=== PATIENT | female | born 1950 | race Caucasian/White ===

== ENCOUNTER 2017-03-11 13:18 | Outpatient (CLI) ==
[2016-02-16 02:32] VITALS: BMI 34.0
--- NOTE | 2017-03-11 14:14 | DI ---
EXAM: Two views of the chest. History: Cough and wheezing Comparison: Chest radiograph 04/01/2016 Findings: Upper limits of normal heart size. Moderate hiatal hernia. No definite acute infiltrate s. No appreciable pleural fluid and no pneumothorax. No acute osseous abnormalities. Atherosclero tic vascular calcifications. Impression: No definite acute infiltrates. Moderate hiatal hernia.
== END 2017-03-11 13:19 | disposition home or self-care (01) ==
LOC: RAD 13:18
PROVIDERS: ATTEND Internal Medicine
DX: R05 Cough (principal); R06.2 Wheezing

== ENCOUNTER 2017-05-27 14:29 | Outpatient (CLI) ==
[2016-02-16 02:32] VITALS: BMI 34.0
--- NOTE | 2017-05-30 08:25 | MAMMO ---
EXAM: Bilateral digital screening mammogram History: Screening Comparison: Bilateral mammogram 07/15/2014 Findings: MLO and CC views of bilateral breasts demonstrate predominately fatty replaced breast par enchyma. Stable benign bilateral breast calcifications. There are no dominant masses, no suspiciou s microcalcifications and no architectural distortions Impression: Benign stable mammogram. Recommend followup routine screening mammography in 1 year. BIRADS 2
== END 2017-05-27 14:30 | disposition home or self-care (01) ==
LOC: RAD 14:29
PROVIDERS: ATTEND Internal Medicine
DX: Z12.31 Encounter for screening mammogram for malignant neoplasm of breast (principal)

== ENCOUNTER 2017-07-22 08:55 | Outpatient (CLI) ==
[2016-02-16 02:32] VITALS: BMI 34.0
[2017-07-22 09:09] VITALS: BP 136/80; TEMP 97
[2017-07-22] MEDS ORDERED: RECLAST 5 MG/100 ML SOLUTION 5 MG in PREMIX INFUSION 100 ML VIAL 1 VIAL IV ONE (09:09)
[2017-07-22 09:55] LABS: CALCIUM 9.8 mg/dL (8.2-10.2)
[2017-07-22 10:31] LABS: CREATININE 0.84 mg/dL (0.60-1.30)
== END 2017-07-22 08:56 | disposition home or self-care (01) ==
LOC: OPMED 08:55
PROVIDERS: ATTEND Internal Medicine
DX: M85.80 Other specified disorders of bone density and structure, unspecified site (principal)
CPT/HCPCS: 36415; 82310; 82550; 82565; 96365

== ENCOUNTER 2017-08-29 17:31 | Inpatient (IN) | payer OTHER ==
[2017-08-29] MEDS ORDERED: TYLENOL PO PRN (17:50)
[2017-08-29] MEDS ORDERED: MORPHINE 4 MG/ML VIAL IVP PRN (17:50)
[2017-08-29] MEDS ORDERED: ATROPINE SULFATE PFS IVP PRN (17:50)
[2017-08-29] MEDS ORDERED: NITROSTAT SL PRN ×2 (17:50→20:10)
[2017-08-29] MEDS ORDERED: VISTARIL INJ IM PRN (17:50)
[2017-08-29] MEDS ORDERED: XOPENEX 0.31 MG NEB SCH (18:00)
[2017-08-29] MEDS ORDERED: SOLU-CORTEF 250 MG IVP STA (18:06)
[2017-08-29 18:32] VITALS: BMI 29.4
[2017-08-29] MEDS ORDERED: ROCEPHIN ONE (18:41)
[2017-08-29] MEDS: ZITHROMAX PO SCH (18:46)
[2017-08-29] MEDS ORDERED: SODIUM CHLORIDE 50 ML IV ONE (18:47)
--- NOTE | 2017-08-29 19:24 | DI ---
EXAM: Chest PA and lateral HISTORY: Congestion, shortness of breath, cough. COMPARRISON: 03/11/2017 FINDINGS: The heart is borderline enlarged. Calcified plaques overlie the aorta. Pulmonary vascular ity is within normal limits. The lungs appear hyperexpanded. No focal airspace opacity or pleural ef fusion is seen. Advanced osteoarthritis of the right glenohumeral joint is present. There is mild multilevel degener ative changes of the thoracic spine. Moderate to large hiatal hernia is present. IMPRESSION: No acute cardiopulmonary findings. Borderline heart size. Lung hyperexpansion which can be seen with chronic obstructive pulmonary disease. Moderate to large hiatal hernia.
[2017-08-29 19:49] LABS: CREATINE KINASE 101 U/L; MYOGLOBIN 83 ng/ml
[2017-08-29 19:51] LABS: ABG BASE EXCESS -2 (-2.0-2.0); ABG HCO3 23.1 (22.0-26.0); ABG PCO2 40.3 mmHg (35-45); ABG PH 7.367 (7.35-7.45); ABG TCO2 24 (22.0-28.0)
[2017-08-29 19:56] LABS: ANION GAP 13.3; POTASSIUM 3.3 mmol/L (3.5-5.10)
[2017-08-29 19:57] LABS: ALBUMIN 3.8 g/dL (3.4-5.0); ALBUMIN/GLOBULIN RATIO 0.93; BILIRUBIN,TOTAL 0.34 mg/dL (0.00-1.20); BUN/CREATININE RATIO 12.4; CREATININE 1.37 mg/dL (0.60-1.30); TOTAL PROTEIN 7.9 g/dL (5.8-8.1)
[2017-08-29 20:00] LABS: BASOPHILS # (AUTO) 0.1 K/uL (0-0.2); BASOPHILS % (AUTO) 0.7 % (0.0-3.0); EOSINOPHILS # (AUTO) 0.3 K/ul (0.0-0.7); EOSINOPHILS % (AUTO) 3.8 % (0.0-7.0); HEMATOCRIT 41.2 % (37.0-47.0); HEMOGLOBIN 14.1 g/dl (12.0-16.0); IMMATURE GRANULOCYTE % (AUTO) 0.4 % (0.0-5.0); LYMPHOCYTES # (AUTO) 2.2 K/uL (0.60-3.4); LYMPHOCYTES % (AUTO) 29.5 (10.0-50.0); MEAN CORPUSCULAR HEMOGLOBIN 30.8 pg (27.0-31.0); MEAN CORPUSCULAR HGB CONC 34.2 (31.8-35.4); MONOCYTES # (AUTO) 0.6 K/uL (0.4-2.0); MONOCYTES % (AUTO) 8.6 (0-10); NEUTROPHILS # (AUTO) 4.2 K/ul (2.0-6.9); PLATELET COUNT 201 10^3/uL (140-440); RED BLOOD COUNT 4.58 10^6/ul (4.20-5.40); WHITE BLOOD COUNT 7.42 K/ul (4.6-10.2)
[2017-08-29] MEDS ORDERED: NON-FORMULARY MEDICATION (Tizanidine Hcl [Zanaflex] 4 MG) PO PRN ×22 (20:10)
[2017-08-29] MEDS: PULMICORT 0.5 MG/2 ML NEB SCH ×2 (20:14→23:00)
[2017-08-29] MEDS ORDERED: CITALOPRAM HYDROBROMIDE 20 MG PO SCH (21:00)
[2017-08-29] MEDS ORDERED: HYDROCODONE PO SCH (21:00)
[2017-08-29] MEDS ORDERED: NON-FORMULARY MEDICATION (Alprazolam [Xanax] 0.5 MG) PO SCH ×22 (21:00)
[2017-08-29] MEDS ORDERED: ACETAMINOPHEN PO SCH (21:00)
[2017-08-29] MEDS: SOLU-CORTEF 250 MG IVP SCH (21:13)
[2017-08-29] MEDS ORDERED: XANAX ONE (21:39)
[2017-08-29] MEDS ORDERED: NORCO 7.5-325 ONE (21:40)
[2017-08-29] MEDS ORDERED: ASPIRIN EC ONE (21:40)
[2017-08-29] MEDS ORDERED: CELEXA ONE (21:40)
[2017-08-29] MEDS: PLAVIX PO SCH (21:48)
[2017-08-29] MEDS: NORVASC PO SCH (21:48)
[2017-08-29] MEDS: CRESTOR PO SCH (21:49)
[2017-08-29] MEDS: ASPIRIN CHEWABLE PO SCH (21:50)
[2017-08-29] MEDS: TUSSIONEX PO SCH (21:51)
[2017-08-29] MEDS: TOPROL XL PO SCH (21:51)
[2017-08-29] MEDS ORDERED: NORCO 10-325 PO SCH (22:25)
[2017-08-29] MEDS: PERCOCET 10-325 ONE ×2 (22:51→22:52)
[2017-08-29] MEDS: PERCOCET 10-325 PO SCH (22:51)
[2017-08-29 22:53] LABS: BILIRUBIN,URINE Negative (NEGATIVE); KETONES,URINE Negative (NEGATIVE); LEUKOCYTE ESTERASE ,URINE Negative (NEGATIVE); NITRITE,URINE Negative (NEGATIVE); PH,URINE 5.5 (5-9); PROTEIN,URINE Negative (NEGATIVE); URINE, BLOOD 1+ (NEGATIVE)
[2017-08-29 23:01] LABS: ADD URINE MICROSCOPIC YES
[2017-08-29] MEDS: XOPENEX 0.63 MG NEB SCH (23:35)
[2017-08-29] MEDS ORDERED: XOPENEX 0.63 MG NEB ONE (23:35)
[2017-08-30 02:05] LABS: BASOPHILS % (AUTO) 0.5 % (0.0-3.0); EOSINOPHILS % (AUTO) 0.2 % (0.0-7.0); HEMATOCRIT 37.2 % (37.0-47.0); HEMOGLOBIN 12.6 g/dl (12.0-16.0); IMMATURE GRANULOCYTE % (AUTO) 0.5 % (0.0-5.0); LYMPHOCYTES # (AUTO) 0.8 K/uL (0.60-3.4); LYMPHOCYTES % (AUTO) 14.4 (10.0-50.0); MEAN CORPUSCULAR HEMOGLOBIN 30.4 pg (27.0-31.0); MEAN CORPUSCULAR HGB CONC 33.9 (31.8-35.4); MEAN CORPUSCULAR VOLUME 89.6 fl (81.0-99.0); MONOCYTES # (AUTO) 0.3 K/uL (0.4-2.0); MONOCYTES % (AUTO) 4.4 (0-10); NEUTROPHILS # (AUTO) 4.6 K/ul (2.0-6.9); PLATELET COUNT 168 10^3/uL (140-440); RED BLOOD COUNT 4.15 10^6/ul (4.20-5.40); WHITE BLOOD COUNT 5.71 K/ul (4.6-10.2)
[2017-08-30 02:27] LABS: ALBUMIN 3.3 g/dL (3.4-5.0); ALBUMIN/GLOBULIN RATIO 0.92; ANION GAP 12.7; BILIRUBIN,TOTAL 0.23 mg/dL (0.00-1.20); BUN/CREATININE RATIO 14.61; CALCIUM 9.7 mg/dL (8.2-10.2); CREATININE 1.3 mg/dL (0.60-1.30); POTASSIUM 3.7 mmol/L (3.5-5.10); TOTAL PROTEIN 6.9 g/dL (5.8-8.1)
[2017-08-30 02:35] LABS: CREATINE KINASE 80 U/L; MYOGLOBIN 55 ng/ml
[2017-08-30] MEDS: PULMICORT 0.5 MG/2 ML NEB SCH ×2 (05:25→16:55)
[2017-08-30] MEDS: SOLU-CORTEF 250 MG IVP SCH ×3 (05:39→20:02)
[2017-08-30] MEDS: PERCOCET 10-325 PO SCH ×3 (05:40→20:34)
[2017-08-30] MEDS: SYNTHROID PO SCH (05:43)
[2017-08-30] MEDS: XOPENEX 0.63 MG NEB SCH ×4 (05:59→23:04)
[2017-08-30] MEDS ORDERED: ZANAFLEX PO PRN (07:24)
[2017-08-30] MEDS ORDERED: ASPIRIN EC PO SCH (08:00)
[2017-08-30] MEDS: PROTONIX PO SCH (08:43)
[2017-08-30] MEDS: TUSSIONEX PO SCH ×2 (08:43→20:34)
[2017-08-30] MEDS: CYMBALTA PO SCH (08:43)
[2017-08-30] MEDS: REQUIP PO SCH (08:43)
[2017-08-30] MEDS: ZITHROMAX PO SCH (08:43)
[2017-08-30] MEDS: NON-FORMULARY MEDICATION (Fluticasone/Vilanterol [Breo Ellipta 200-25 Mcg Inh] 1 PUFF) PO SCH (08:44)
[2017-08-30] MEDS: ROCEPHIN 1 GM in SODIUM CHLORIDE 50 ML IV SCH (08:44)
[2017-08-30] MEDS ORDERED: NON-FORMULARY MEDICATION (Ropinirole Hcl [Requip] 0.5 MG) PO SCH (09:00)
[2017-08-30] MEDS ORDERED: NORCO 10-325 PO SCH (09:00)
[2017-08-30] MEDS ORDERED: NON-FORMULARY MEDICATION (Duloxetine Hcl [Cymbalta] 60 MG) PO SCH ×22 (09:00)
--- NOTE | 2017-08-30 09:47 | PCM.PROG ---
Attending Provider: ATTENDING PROVIDER: Dr. SIA DOMINGUEZ This patient is seen with Deisy Walters, Nurse Practitioner. DATE OF SERVICE: 08/30/17 SUBJECTIVE: This 67 year old WHITE/ F was hospitalized 08/29/17. The patient is alert, lying in bed. Wheezing is improved. Feeling better. REVIEW OF SYSTEMS: CONSTITUTIONAL: No night sweats. No fatigue, malaise, lethargy. No fever or chills. HEENT: Eyes: No visual changes. No eye pain. No eye discharge. ENT: No runny nose. No epistaxis. No sinus pain. No odynophagia. No congestion. RESPIRATORY: Cough and wheezing. No congestion. No hemoptysis. No shortness of breath. CARDIOVASCULAR: No angina symptoms. No CHF symptoms. No atypical chest pain for CAD. No palpitations. No orthopnea.. GASTROINTESTINAL: No abdominal pain. No nausea or vomiting. No diarrhea or constipation. No hematemesis. No hematochezia. GENITOURINARY: No urgency. No frequency. No dysuria. No hematuria. No obstructive symptoms. No discharge. No pain. No significant abnormal bleeding. MUSCULOSKELETAL: No musculoskeletal pain; no joint swelling. NEUROLOGICAL: Awake, alert, oriented to time, place and person. No headache. No neck pain. No syncope. No seizures. No dizziness. PSYCHIATRIC: Not anxious. No depression. No suicidal thoughts. No homicidal thoughts. SKIN: No rash. No lesions. No wounds. ENDOCRINE: No unexplained weight loss. No weight gain. HEMATOLOGIC/LYMPHATIC: No anemia. No purpura. No petechiae. No prolonged or excessive bleeding. No palpable lymph nodes. PHYSICAL EXAMINATION: GENERAL: The patient is awake, alert and oriented, lying in bed in no distress. VITAL SIGNS: Temperature 96.8 F, Pulse 55, Respiratory Rate 15, BP 100/53, Pulse Ox 97% HEENT: Head normocephalic, atraumatic. Eyes: Extraocular muscles are intact. Pupils are equal, round and reactive to light and accommodation. Ears: No lesions. Nose appeared normal. Throat: No exudate or erythema. NECK: Supple. No JVD, no carotid bruit. No lymphadenopathy or thyromegaly. LUNGS: Diminished breath sounds. Improved bilateral inspiratory and expiratory wheeze. Percussion note normal. Chest symmetrical. HEART: S1, S2, no S3. No murmurs. No cyanosis or clubbing. No ascites. Pulses: Dorsalis pedis and posterior tibial pulses +1 to +2 both sides. ABDOMEN: Soft. Non-tender. Bowel sounds active. No CVA tenderness. No mass felt. EXTREMITIES: No edema. Full range of motion of all extremities, equal. NEUROLOGIC: No focal deficit. Cranial nerves II through XII are grossly intact. No headache, no double vision or headache. SKIN: Not dry. Intact. Turgor-normal. LYMPHATIC: No palpable lymph nodes/no lymphedema. MUSCULOSKELETAL: Normal joints with no swelling. Muscle tone is normal. LAB REVIEW: 08/30/17 01:50 08/30/17 01:50 08/30/17 01:50: Sodium 138, Potassium 3.7, Chloride 107, Carbon Dioxide 22 L, Anion Gap 12.7, BUN 19 H, Creatinine 1.30, Estimated GFR (MDRD) 41.00, BUN/ Creatinine Ratio 14.61, Glucose 141 H, Calcium 9.7, Total Bilirubin 0.23, AST 12 L, ALT 10 L, Alkaline Phosphatase 68, Total Protein 6.9, Albumin 3.3 L, Globulin 3.6, Albumin/Globulin Ratio 0.92 08/30/17 01:50: WBC 5.71, RBC 4.15 L, Hgb 12.6, Hct 37.2, MCV 89.6, MCH 30.4, MCHC 33.9, RDW Coeff of Melody 13.3, Plt Count 168, Immature Gran % (Auto) 0.5, Neut % (Auto) 80.0, Lymph % (Auto) 14.4, Ward % (Auto) 4.4, Eos % (Auto) 0.2, Baso % (Auto) 0.5, Immature Gran # (Auto) 0.0, Neut # 4.6, Lymph # 0.8, Ward # 0.3 L, Eos # 0.0, Baso # 0.0 08/30/17 01:50: Total Creatine Kinase 80, Myoglobin 55, Troponin I < 0.0100 08/29/17 22:40: Urine Color Yellow, Urine Clarity Clear, Urine pH 5.5, Ur Specific [place] <=1.005, Urine Protein Negative, Urine Glucose (UA) Negative, Urine Ketones Negative, Urine Blood 1+, Urine Nitrite Negative, Urine Bilirubin Negative, Urine Urobilinogen 0.2, Ur Leukocyte Esterase Negative, Urine Microscopic RBC 0-2, Urine Microscopic WBC 0-2, Ur Squamous Epith Cells 0-2 08/29/17 19:10: Total Creatine Kinase 101, Myoglobin 83, Troponin I < 0.0100 08/29/17 19:10: Sodium 138, Potassium 3.3 L, Chloride 104, Carbon Dioxide 24, Anion Gap 13.3, BUN 17, Creatinine 1.37 H, Estimated GFR (MDRD) 39.00, BUN/ Creatinine Ratio 12.40, Glucose 94, Calcium 10.0, Total Bilirubin 0.34, AST 15, ALT 10 L, Alkaline Phosphatase 75, Total Protein 7.9, Albumin 3.8, Globulin 4.1 , Albumin/Globulin Ratio 0.93 08/29/17 19:10: WBC 7.42, RBC 4.58, Hgb 14.1, Hct 41.2, MCV 90.0, MCH 30.8, MCHC 34.2, RDW Coeff of Melody 13.5, Plt Count 201, Immature Gran % (Auto) 0.4, Neut % (Auto) 57.0, Lymph % (Auto) 29.5, Ward % (Auto) 8.6, Eos % (Auto) 3.8, Baso % (Auto) 0.7, Immature Gran # (Auto) 0.0, Neut # 4.2, Lymph # 2.2, Ward # 0.6, Eos # 0.3, Baso # 0.1 08/29/17 19:10: B-Natriuretic Peptide 106 H 08/29/17 17:50: Puncture Site Lb, O2 Saturation 89.0 L, ABG pH 7.367, ABG pCO2 40.3, ABG pO2 59.0 L*, ABG HCO3 23.1, ABG Total CO2 24, ABG Base Excess -2, Hugo Test +, FiO2 % 21.0 ASSESSMENT: 1. Acute bronchitis/pleuritic pain 2. COPD 3. Smoker PLAN: 1. Continue nebs and IV steroids and antibiotics 2. Echo - will check on last one Plan and coordination of the patient's care discussed in the presence of Kiln Feeder and nurse. CONDITION: Stable SCRIBED BY: JANAK MORENO [employer] scribed while in presence of service performed by Dr. Dominguez/Deisy Walters, [employer] SAL[employer] on 08/30/17 ([id number])
[2017-08-30] MEDS: TOPROL XL PO SCH (20:34)
[2017-08-30] MEDS: NORVASC PO SCH (20:34)
[2017-08-30] MEDS: XANAX PO SCH (20:34)
[2017-08-30] MEDS: ASPIRIN CHEWABLE PO SCH (20:34)
[2017-08-30] MEDS: PLAVIX PO SCH (20:35)
[2017-08-30] MEDS: CELEXA PO SCH (20:35)
[2017-08-30] MEDS: CRESTOR PO SCH (20:36)
[2017-08-31] MEDS: SOLU-CORTEF 250 MG IVP SCH ×3 (04:32→20:53)
[2017-08-31] MEDS: PERCOCET 10-325 PO SCH ×3 (04:32→20:55)
[2017-08-31 05:24] LABS: BASOPHILS % (AUTO) 0.5 % (0.0-3.0); EOSINOPHILS % (AUTO) 0.1 % (0.0-7.0); HEMATOCRIT 36.6 % (37.0-47.0); HEMOGLOBIN 12.3 g/dl (12.0-16.0); IMMATURE GRANULOCYTE % (AUTO) 0.7 % (0.0-5.0); LYMPHOCYTES # (AUTO) 1.3 K/uL (0.60-3.4); LYMPHOCYTES % (AUTO) 15.1 (10.0-50.0); MEAN CORPUSCULAR HEMOGLOBIN 30.4 pg (27.0-31.0); MEAN CORPUSCULAR HGB CONC 33.6 (31.8-35.4); MEAN CORPUSCULAR VOLUME 90.4 fl (81.0-99.0); MONOCYTES # (AUTO) 0.5 K/uL (0.4-2.0); MONOCYTES % (AUTO) 5.5 (0-10); NEUTROPHILS # (AUTO) 6.8 K/ul (2.0-6.9); NEUTROPHILS % (AUTO) 78.1; PLATELET COUNT 194 10^3/uL (140-440); RED BLOOD COUNT 4.05 10^6/ul (4.20-5.40); WHITE BLOOD COUNT 8.68 K/ul (4.6-10.2)
[2017-08-31] MEDS: XOPENEX 0.63 MG NEB SCH ×4 (05:29→23:03)
[2017-08-31] MEDS: PULMICORT 0.5 MG/2 ML NEB SCH ×2 (05:29→18:18)
[2017-08-31 06:02] LABS: ALBUMIN/GLOBULIN RATIO 0.88; ANION GAP 13.1; BILIRUBIN,TOTAL 0.17 mg/dL (0.00-1.20); BUN/CREATININE RATIO 19.62; CALCIUM 9.6 mg/dL (8.2-10.2); CREATININE 1.07 mg/dL (0.60-1.30); POTASSIUM 4.1 mmol/L (3.5-5.10); TOTAL PROTEIN 6.4 g/dL (5.8-8.1)
[2017-08-31] MEDS: PROTONIX PO SCH (06:04)
[2017-08-31] MEDS: SYNTHROID PO SCH (06:05)
[2017-08-31] MEDS: ROCEPHIN 1 GM in SODIUM CHLORIDE 50 ML IV SCH (09:20)
[2017-08-31] MEDS: TUSSIONEX PO SCH ×2 (09:20→20:53)
[2017-08-31] MEDS: REQUIP PO SCH (09:21)
[2017-08-31] MEDS: ZITHROMAX PO SCH (09:21)
[2017-08-31] MEDS: NON-FORMULARY MEDICATION (Fluticasone/Vilanterol [Breo Ellipta 200-25 Mcg Inh] 1 PUFF) PO SCH (09:21)
[2017-08-31] MEDS: CYMBALTA PO SCH (09:22)
--- NOTE | 2017-08-31 10:59 | PN ---
DATE OF SERVICE: 08/30/17 SUBJECTIVE: 67 year old white female hospitalized with acute bronchitis and bilateral pneumonitis with wheezing and pleuritic pain. The patient says that she is feeling a lot better and her appetite has improved. Now she is talking without stopping. PHYSICAL EXAMINATION: HEENT: Head normocephalic, atraumatic. Eyes: Extraocular muscles are intact. Pupils are equal, round and reactive to light and accommodation. Ears: No lesions. Nose appeared normal. Throat: No exudate or erythema. NECK: Supple. No JVD, no carotid bruit. No lymphadenopathy or thyromegaly. LUNGS: Decreased breath sounds but clear to auscultation. Good air entry and no wheezing. Percussion note normal. Chest symmetrical. HEART: S1, S2, no S3. No murmurs. No cyanosis or clubbing. No ascites. Pulses: Dorsalis pedis and posterior tibial pulses +1 to +2 both sides. ABDOMEN: Soft. Nontender. Bowel sounds active. No CVA tenderness. No mass felt. EXTREMITIES: No edema. Full range of motion of all extremities, equal. NEUROLOGIC: No focal deficit. Cranial nerves II through XII are grossly intact. No headache, no double vision or headache. SKIN: Not dry. Intact. Turgor -Better. LYMPHATIC: No palpable lymph nodes/no lymphedema. MUSCULOSKELETAL: Normal joints with no swelling. Muscle tone is normal. LABS: All acceptable and normal. ASSESSMENT: 1. Pneumonitis/asthmatic bronchitis, improving PLAN: 1. Counseling for smoking done 2. Advised to loose weight 3. Will do pulmonary rehab 4. Do PFT before discharge 5. Continue antibiotic steroids and NEBS CONDITION: Stable The patient was seen and examined with the Nurse Practitioner. TIME SPENT: More than 30 minutes. Plan and coordination of the patient's care discussed in the presence of nurse. LILA
--- NOTE | 2017-08-31 11:08 | HP ---
DATE OF SERVICE: 08/29/17 HISTORY OF PRESENT ILLNESS: This is a 67-year-old female with complaints that she is still coughing, now with headaches. She finished Keflex and Prednisone. She has yellow/green phlegm. Symptoms off and on times 4 weeks. No fever. Pleuritic right-sided chest pain, sharp/tightness/soreness. PAST MEDICAL HISTORY: Cataracts CAD with stent COPD - smoking Hypertension Dyslipidemia Obesity Vitamin B12 deficiency Hypothyroidism Osteopenia Osteoarthritis of the hip MENSTRUAL HISTORY: Hysterectomy PAST SURGICAL HISTORY: Heart catheterization Stent 2006 Hysterectomy Bladder REVIEW OF SYSTEMS: CONSTITUTIONAL: No fever. Fatigue. HEENT: Sinus drainage. No sore throat. RESPIRATORY: Cough with yellow/green phlegm. No hemoptysis. CARDIOVASCULAR: Atypical chest pain for coronary artery disease. No angina, CHF symptoms, or palpitations. Shortness of breath. GASTROINTESTINAL: No melena or abdominal pain. No GERD. GENITOURINARY: No hematuria, no polyuria. LOCOMOTIVE MECHANIC: Headache. No blackout, no dizziness, no double vision. MUSCULOSKELETAL: Osteoarthritis pain. ENDOCRINE: Weight loss of 3 lbs. SKIN: Not dry, no rash. PSYCHIATRIC: Not anxious, no depression, no suicidal thoughts, no homicidal thoughts. SOCIAL HISTORY: , three children, disabled. Smoker - 1/2 pack per day for over 30 years. No alcohol use. No history of illicit drug use. FAMILY HISTORY: Father is living; mother living; two brothers; one sister. MEDICATIONS: (HOME) Breo Ellipta 200-25 mcg dose blister with device twice daily Celexa 20 mg one p.o. once daily Levothyroxine 25 mcg one p.o. daily Pantoprazole 40 mg one p.o. daily Reclast 5 mg/100 mL solution Hydrocodone-Acetaminophen 10-325 mg tablet one p.o. three times per day p.r.n. Ipratropium Albuterol 0.5 mg 3 mg (2.5 mg base)/3 mL solution for nebulization Requip 0.5 mg one tablet p.o. one time per day 1 to 3 hours before bedtime Plavix 75 mg one p.o. once daily Norvasc 5 mg one p.o. daily Metoprolol Succinate 25 mg one p.o. daily Crestor 10 mg one p.o. daily at bedtime Xanax 0.5 mg one p.o. two times per day p.r.n. Symbicort 160-4.5 mcg/actuation HFA aerosol inhaler two puffs two times per day in morning and evening Aspirin 81 mg p.o. once daily ALLERGIES: NKDA PHYSICAL EXAMINATION: V/S: Pulse 70, BP 110/70, temperature 97.9, 02 sat 93%. Weight 186.6, Height 5'6 ". GENERAL APPEARANCE: Oriented times three. HEENT: Normal. NECK: No JVP, no bruits. RESPIRATORY: Lungs have bilateral wheeze. CARDIOVASCULAR: S1, S2, no S3, no murmurs. No cyanosis, clubbing. No ascites. GI/ABDOMEN: No tenderness. Bowel sounds are active. EXTREMITIES: No edema, pulses +1, equal. LOCOMOTIVE MECHANIC: Deep tendon reflexes, sensory, motor and gait all normal. RECTAL/PELVIC: Colonoscopy - Dr. Wan 08/17/17. Pelvic: Hysterectomy. Mammogram 08/07 [facility]. ASSESSMENT: 1. ACUTE BRONCHITIS/PLEURITIC PAIN/LEFT-SIDED PNEUMONIA 2. HEADACHE WITH COUGH 3. STATUS POST BILATERAL CATARACTS 4. CAD WITH STENT 2005 5. COPD - SMOKING 6. HYPERTENSION 7. DYSLIPIDEMIA 8. OBESITY 9. B12 DEFICIENCY 10. HYPOTHYROIDISM 11. OSTEOPENIA/OSTEOARTHRITIS HIP PLAN: 1. Admit routine telemetry orders 2. BNP/ABG today 3. Nebs - Xopenex q.4 hr, Pulmicort b.i.d. 4. Blood cultures times two 5. Sputum culture and sensitivity 6. Daily CBC, CMP a.m. 7. Rocephin 1 gm IV 24 hourly 8. Zithromax 500 mg p.o. daily times 3 days 9. Solu-Cortef 125 mg IV now and q.8hr 10. Tussionex one teaspoon p.o. b.i.d. 11. Continue all home medications TIME SPENT: More than 70 minutes. MTDD
[2017-08-31] MEDS: CELEXA PO SCH (20:55)
[2017-08-31] MEDS: PLAVIX PO SCH (20:55)
[2017-08-31] MEDS: TOPROL XL PO SCH (20:55)
[2017-08-31] MEDS: NORVASC PO SCH (20:55)
[2017-08-31] MEDS: CRESTOR PO SCH (20:55)
[2017-08-31] MEDS: XANAX PO SCH (20:55)
[2017-08-31] MEDS: ASPIRIN CHEWABLE PO SCH (20:55)
[2017-09-01 04:57] LABS: BASOPHILS % (AUTO) 0.4 % (0.0-3.0); EOSINOPHILS % (AUTO) 0.1 % (0.0-7.0); HEMATOCRIT 36.2 % (37.0-47.0); IMMATURE GRANULOCYTE % (AUTO) 1.2 % (0.0-5.0); LYMPHOCYTES # (AUTO) 1.2 K/uL (0.60-3.4); LYMPHOCYTES % (AUTO) 15.7 (10.0-50.0); MEAN CORPUSCULAR HEMOGLOBIN 30.1 pg (27.0-31.0); MEAN CORPUSCULAR HGB CONC 33.1 (31.8-35.4); MEAN CORPUSCULAR VOLUME 90.7 fl (81.0-99.0); MONOCYTES # (AUTO) 0.5 K/uL (0.4-2.0); MONOCYTES % (AUTO) 6.4 (0-10); NEUTROPHILS # (AUTO) 5.9 K/ul (2.0-6.9); NEUTROPHILS % (AUTO) 76.2; PLATELET COUNT 194 10^3/uL (140-440); RED BLOOD COUNT 3.99 10^6/ul (4.20-5.40); WHITE BLOOD COUNT 7.69 K/ul (4.6-10.2)
[2017-09-01] MEDS: XOPENEX 0.63 MG NEB SCH ×2 (05:14→11:07)
[2017-09-01] MEDS: PULMICORT 0.5 MG/2 ML NEB SCH (05:14)
[2017-09-01 05:26] LABS: ALBUMIN/GLOBULIN RATIO 0.91; ANION GAP 10.9; BILIRUBIN,TOTAL 0.17 mg/dL (0.00-1.20); BUN/CREATININE RATIO 22.01; CALCIUM 9.4 mg/dL (8.2-10.2); CREATININE 1.09 mg/dL (0.60-1.30); POTASSIUM 3.9 mmol/L (3.5-5.10); TOTAL PROTEIN 6.3 g/dL (5.8-8.1)
[2017-09-01] MEDS: SOLU-CORTEF 250 MG IVP SCH (05:32)
[2017-09-01] MEDS: PERCOCET 10-325 PO SCH (05:32)
[2017-09-01] MEDS: PROTONIX PO SCH (05:32)
[2017-09-01] MEDS: SYNTHROID PO SCH (05:32)
[2017-09-01] MEDS: ROCEPHIN 1 GM in SODIUM CHLORIDE 50 ML IV SCH (08:14)
[2017-09-01] MEDS: TUSSIONEX PO SCH (08:14)
[2017-09-01] MEDS: NON-FORMULARY MEDICATION (Fluticasone/Vilanterol [Breo Ellipta 200-25 Mcg Inh] 1 PUFF) PO SCH (08:14)
[2017-09-01] MEDS: CYMBALTA PO SCH (08:14)
[2017-09-01] MEDS: REQUIP PO SCH (08:15)
--- NOTE | 2017-09-01 08:16 | MRI ---
EXAM: MRI brain without and with IV contrast. DATE: 31 August 2017. HISTORY: Headaches, dizziness. TECHNIQUE: Sagittal T1W pre and postcontrast, axial T2W, axial FLAIR, axial T1W pre and postcontrast , axial DWI, coronal T1W postcontrast, and coronal T2W GRE sequences of the brain were obtained using 1.2 Lora magnet. CONTRAST: Omniscan - 15 ml IV. COMPARISON: None. FINDINGS: A cavum septum vergae normal variation is observed. The lateral ventricles, Sylvian fissu res, and many frontal / parietal lobe sulci are enlarged due to involutional change. No midline shif t, mass effect or abnormal extra-axial fluid collection is apparent. No acute infarct, hemorrhage or enhancing neoplasm is identified. No abnormal contrast enhancement is identified in the brain, meni nges or dura. Minimal T2W/FLAIR hyperintensities in the white matter abutting each lateral ventricle . A few 2-4 mm, T2W/FLAIR bright, non-enhancing foci are scattered in the subcortical white matter b ilaterally. The corcoran - white matter differentiation is normal. Several 2 mm diameter, FLAIR hyperin tense foci are note within the central aspect of the daniele. No migration or diverticulation abnormali ty is identified. No mesial temporal sclerosis is detected. The 7th/8th cranial nerve complexes, ce rebellopontine angles, and visible cervical spinal cord are normal. There is no cerebellar tonsillar ectopia. The pituitary gland appears narrow in height posteriorly. No focal pituitary lesion is id entified. Corpus callosum is normal in size and configuration. Flow voids are present in the major intracranial arteries and in the dural venous sinuses. No aneurysm, AVM or dural venous sinus thromb osis is apparent. Right ophthalmic vein is 4.5 mm diameter. Left ophthalmic vein is 4.2 mm diameter . Appearance in the lens of each eye suggests prior cataract surgery. No other orbit abnormality is identified. No definitive cavernous sinus abnormality is revealed. Most mastoid air cells bilatera lly demonstrate T2W bright, T1W intermediate signal, with some areas revealing mild enhancement. The re is minor mucosal thickening in the right maxillary sinus, scattered ethmoid air cells, and frontal sinuses. No neck mass or lymphadenopathy is detected. No calvarial neoplasm or acute fracture is e vident. IMPRESSIONS: 1. No acute infarct, hemorrhage, mass or hydrocephalus. 2. Minor cerebral and pontine small vessel disease. 3. Mild cerebral atrophy. 4. Minor right maxillary, ethmoid, and frontal sinus disease. 5. Marked, diffuse bilateral mastoid effusions / mastoiditis. 6. Each ophthalmic vein is upper normal size. 7. Posterior pituitary gland appears small.
[2017-09-01] MEDS ORDERED: LIDOCAINE HCL 1% SDV SUBCUT STA (08:30)
[2017-09-01] MEDS ORDERED: ROCEPHIN IM STA (08:30)
[2017-09-01 10:04] VITALS: BP 150/74; TEMP 97.3
--- NOTE | 2017-09-01 12:27 | CM.DICTOOL ---
ADMISSION: 08/29/17 17:31 DISCHARGE: September 01, 2017 DATE OF SERVICE: 09/01/17 FINAL DIAGNOSIS Acute Bronchitis Pleuritic chest pain Headache Hypertension CAD with stent application Dyslipidemia Hypothyroid Osteopenia Osteoarthritis B12 deficiency Cataract extraction, 2017 Heart Cath Cardiac Stent Hiatal Hernia, moderate to large Hysterectomy Bladder sling Tobacco use Chronic pain, pain management RLS LAST VITALS Temp Pulse Resp BP Pulse Ox 97.3 F L 70 16 150/74 H 89 L 09/01/17 10:00 09/01/17 10:00 09/01/17 10:00 09/01/17 10:00 09/01/17 10:00 ACTIVE MEDICATIONS Alprazolam (Xanax) 0.5 mg PO BEDTIME [facility] Last Admin: 08/31/17 20:55 Dose: 0.5 mg Amlodipine Besylate (Norvasc) 5 mg PO BEDTIME [facility] Last Admin: 08/31/17 20:55 Dose: 5 mg Aspirin (Aspirin Chewable) 81 mg PO BEDTIME [facility] Last Admin: 08/31/17 20:55 Dose: 81 mg Citalopram Hydrobromide (Celexa) 20 mg PO BEDTIME [facility] Last Admin: 08/31/17 20:55 Dose: 20 mg Clopidogrel Bisulfate (Plavix) 75 mg PO BEDTIME [facility] Last Admin: 08/31/17 20:55 Dose: 75 mg Duloxetine HCl (Cymbalta) 60 mg PO DAILY [facility] Last Admin: 09/01/17 08:14 Dose: 60 mg Levothyroxine Sodium (Synthroid) 25 mcg PO QDAC [facility] Last Admin: 09/01/17 05:32 Dose: 25 mcg Metoprolol Succinate (Toprol Xl) 25 mg PO BEDTIME [facility] Last Admin: 08/31/17 20:55 Dose: 25 mg Nitroglycerin (Nitrostat) 0.4 mg SL Q5MIN X 3 DOSES PRN PRN Reason: Chest Pain Non-Formulary Medication (Fluticasone/Vilanterol [Breo Ellipta 200-25 Mcg Inh]) 1 puff PO DAILY [facility] Last Admin: 09/01/17 08:14 Dose: 1 puff Oxycodone/Acetaminophen (Percocet 10-325) 1 tab PO Q8HR [facility] Last Admin: 09/01/17 05:32 Dose: 1 tab Pantoprazole Sodium (Protonix) 40 mg PO QDAC [facility] Last Admin: 09/01/17 05:32 Dose: 40 mg Ropinirole HCl (Requip) 0.5 mg PO DAILY [facility] Last Admin: 09/01/17 08:15 Dose: 0.5 mg Rosuvastatin Calcium (Crestor) 10 mg PO BEDTIME [facility] Last Admin: 08/31/17 20:55 Dose: 10 mg Tizanidine HCl (Zanaflex) 4 mg PO TID PRN PRN Reason: MUSCLE SPASMS ALLERGIES No Known Allergies Allergy (Verified 02/15/16 21:55) NEW PRESCRIPTIONS: Keflex 500 mg TID for 7 days Prednisone 20 mg BID for 2 days, then 10 mg BID for 5 days ProAir HFA 1-2 puffs every 4-6 hours prn SMOKING: ADVISED TO STOP SMOKING DISEASE SPECIFIC EDUCATION: SMOKING STEROIDS WITH RISK OF BONE DEMINERALIZATION, GI IRRITATION APPOINTMENT LAB REVIEW: 09/01/17 04:56 09/01/17 04:56 09/01/17 04:56: Sodium 142, Potassium 3.9, Chloride 108 H, Carbon Dioxide 27, Anion Gap 10.9, BUN 24 H, Creatinine 1.09, Estimated GFR (MDRD) 50.00, BUN/ Creatinine Ratio 22.01, Glucose 123 H, Calcium 9.4, Total Bilirubin 0.17, AST 10 L, ALT 11 L, Alkaline Phosphatase 54, Total Protein 6.3, Albumin 3.0 L, Globulin 3.3, Albumin/Globulin Ratio 0.91 09/01/17 04:56: WBC 7.69, RBC 3.99 L, Hgb 12.0, Hct 36.2 L, MCV 90.7, MCH 30.1, MCHC 33.1, RDW Coeff of Melody 13.3, Plt Count 194, Immature Gran % (Auto) 1.2, Neut % (Auto) 76.2, Lymph % (Auto) 15.7, [place] % (Auto) 6.4, Eos % (Auto) 0.1, Baso % (Auto) 0.4, Immature Gran # (Auto) 0.1, Neut # 5.9, Lymph # 1.2, [place] # 0.5, Eos # 0.0, Baso # 0.0 PLAN: DISCHARGE HOME DIET: HEART HEALTHY ACTIVITY: GRADUALLY RESUME TOLERATED USE OXYGEN AT NIGHT, C-PAP AT NIGHT CONTINUE MEDICATIONS LISTED ON NURSING DISCHARGE INFORMATION SHEET AN APPOINTMENT IS SCHEDULED WITH DR. DOMINGUEZ/OSITO BRADEN APRN ON August AT 3:15. MRS HUANG IS ALERT AND ORIENTED X 3. SHE IS INDEPENDENT WITH ADL'S AND IS AMBULATORY WITHOUT USE OF ASSISTIVE DEVICE. SHE USES A C-PAP AT NIGHT AND OXYGEN AT 2 LITERS AT NIGHT PRN. SHE HAS THIS EQUIPMENT AT HOME. SHE ALSO REPORTS SHE HAS A NEBULIZER, BUT NO LONGER USES. MEAL INTAKES ARE GOOD AT 25- 100%. NO ABDOMINAL PAIN, NAUSEA OR DIARRHEA REPORTED. SKIN IS INTACT AND FREE OF DECUBITUS, RASHES OR IRRITATION. SIA DOMINGUEZ MD OSITO BRADEN APRN
--- NOTE | 2017-09-01 12:55 | US ---
EXAM: ULTRASOUND CAROTID DUPLEX, BILATERAL HISTORY: Headache and dizziness FINDINGS: Alvarado-scale ultrasound, color Doppler and spectral analysis was performed. Velocities are in meters per second. By alvarado scale and color Doppler imaging, there was a significant amount heterogeneous atherosclerotic plaque distributed bilaterally within the carotid bulbs and proximal internal carotid arteries. Artie que degree appeared to remain less than 50% vessel diameter. RIGHT: External carotid artery peak systolic velocity: 1.2 Common carotid artery peak systolic velocity/end diastolic velocity: 0.6/0.1 Internal carotid artery peak systolic velocity: 1.2 ICA/CCA peak systolic velocity ratio: 2.1 ICA end diastolic velocity: 0.2 LEFT: External carotid artery peak systolic velocity: 1.0 Common carotid artery peak systolic velocity/end diastolic velocity: 0.7/0.1 Internal carotid artery peak systolic velocity: 1.0 ICA/CCA peak systolic velocity ratio: 1.4 ICA end diastolic velocity: 0.3 The right and left vertebral arteries were antegrade. IMPRESSION: 1. By alvarado scale and color Doppler imaging, there was a significant amount heterogeneous atheroscler otic plaque distributed bilaterally within the carotid bulbs and proximal internal carotid arteries. Plaque degree appeared to remain less than 50% vessel diameter. 2. The right internal carotid artery peak systolic velocity of 1.2 meters per second falls within th e mild range of stenosis. Mild indicates less than 50% vessel diameter. The right ICA/CCA peak syst olic velocity ratio of 2.1 falls minimally within the moderate range of stenosis. Moderate indicates 50 - 69% vessel diameter. Correlation with CTA can be considered if indicated clinically. 3. No sonographic evidence of hemodynamically significant stenosis within the left carotid system. 4. Both vertebral arteries were antegrade.
--- NOTE | 2017-09-05 10:42 | ECHO2D ---
Date of Exam: 09/01/17 Ordering Physician: SIA DOMINGUEZ Room #: 106 Reason for Echo: COUGH, PLEURITIC PAIN, HYPERTENSION M-Mode Normal Adult Results LV Dimensions Normal Adult Results AoV Opening excursions >1.6 >1.6 LVEDD-base- 3.5-5.8 5.1 Ao root dimensions 2.0-3.7 3.3 LVESD-base- 3.1-4.6 L. Atrium dimensions 1.9-3.8 4.8 Post. Wall thickness 0.8-1.1 1.3 IV septum (thickness) 0.7-1.2 1.3 Post. Wall excursion 0.72-1.3 NORMAL Septal motion NORMAL Systolic motion R. Ventricular cavity 1.5-2.0 NORMAL LVEF 60% 47% Paradoxical septal wall motion NORMAL 2-D : 2-D M Mode Echocardiogram was performed using apical four chamber and left parasternal long and short axis views. Mitral, tricuspid and aortic valves appear to be normal. Contractility of the left ventricle seems to be normal, so is the cavity size. Enlarged Left atrial cavity. Aortic root appears to be normal. There is no pericardial effusion. There is no thrombus noted in the left ventricular or left aortic cavity. No mitral valve prolapse noted. M-MODE: MV: NORMAL AV: NORMAL TV: NORMAL PV: CHAMBER SIZE: ENLARGED LEFT ATRIAL CAVITY WALL MOTION: NORMAL PERICARDIUM: NORMAL INTERPRETATION: 1. LEFT VENTRICULAR HYPERTROPHY WITH ENLARGED LEFT ATRIAL CAVITY 2. NORMAL LEFT VENTRICULAR CONTRACTILITY 3. NORMAL VALVES MTDD
--- NOTE | 2017-09-13 07:03 | DS ---
DATE OF SERVICE: 09/01/17 FINAL DIAGNOSIS: 1. ACUTE BRONCHITIS 2. PLEURITIC CHEST TOMÁS N 3. HEADACHE 4. HYPERTENSION 5. CAD WITH STENT APPLICATION 6. DYSLIPIDEMIA 7. HYPOTHYROID 8. OSTEOPENIA 9. OSTEOARTHRITIS 10. B12 DEFICIENCY 11. CATARACT EXTRACTION, 2016 12. HEART CATH 13. CARDIAC STENT 14. HIATAL HERNIA, MODERATE TO LARGE 15. HYSTERECTOMY 16. BLADDER SLING 17. TOBACCO USE 18. CHRONIC PAIN, PAIN MANAGEMENT 19. RLS DISCHARGE INSTRUCTIONS: Followup appointment: An appointment is scheduled with Dr. Murry/Deisy Walters APRN on 09/06/17 at 3:15 p.m. MEDICATIONS AT DISCHARGE: Xanax 0.5 mg p.o. bedtime MONE Norvasc 5 mg p.o. bedtime MONE Aspirin 81 mg p.o. bedtime MONE Celexa 20 mg p.o. bedtime MONE Plavix 75 mg p.o. bedtime MONE Cymbalta 60 mg p.o. daily MONE Synthroid 25 mcg p.o. q.d a.c. MONE Toprol XL 25 mg p.o. bedtime MONE Nitrostat 0.4 mg SL q.5 min times three doses p.r.n. Breo-Ellipta 200-25 mcg Inh one puff p.o. daily MONE Percocet 10-325 one tab p.o. q.8hr MONE Protonix 40 mg p.o. q.d a.c. MONE Requip 0.5 mg p.o. daily MONE Rosuvastatin (Crestor) 10 mg p.o. bedtime MONE Zanaflex 4 mg p.o. t.i.d. p.r.n. NEW PRESCRIPTIONS: Keflex 500 mg t.i.d. for 7 days Prednisone 20 mg b.i.d. for 2 days then 10 mg b.i.d. for 5 days ProAir one to two puffs mark 4 to 6 hours p.r.n. DIET INSTRUCTIONS: Heart Healthy ACTIVITY: Gradually resume as tolerated. Use oxygen at night, C-PAP at night SMOKING: Advised to stop smoking DISEASE SPECIFIC EDUCATION: Smoking Steroids with risk of bone demineralization, GI irritation Appointment HOSPITAL COURSE: This is a 67-year-old female who was a direct admit from the office with acute bronchitis, pneumonitis. She had been experiencing low oxygen and shortness of breath. She had already been on antibiotics by mouth as well as steroids and was still unable to get over her cough and congestion. She is a long-term smoker with a history of COPD. She was subsequently admitted and placed on IV Rocephin 1 gm daily along with Zithromax 250 mg p.o. daily along with IV steroids, Solu-Medrol, Solu-Cortef 125 mg IV q.8hr. We started nebs treatment with Xopenex q.6hr along with Pulmicort b.i.d. nebulizer. Over the course of the next couple of days, her cough significantly improved. Her shortness of breath greatly improved. Today, on day of discharge, she does not experience any shortness of breath. Her vital signs have been stable. Temperature 98.1, heart rate 62, respirations 14, BP 129/72, pulse ox 96%. Patient does have oxygen at home that she can wear at nighttime. She had been complaining of headache and dizziness for the past several days which was thought to be related to congestion; however, an MRI of the brain which was done as well as a carotid scan. An echo was also done this morning due to shortness of breath by Dr. Murry. The patient does have a history of coronary artery disease with previous stent in 2003. She sees Pain Management for chronic pain and is on pain medication. She will be discharged home today with Keflex 500 mg t.i.d. for 7 days along with Prednisone 20 mg b.i.d. for 2 days and 10 mg b.i.d. for 5 days. The patient doesn't have a nebulizer at home. She is given a ProAir inhaler to do one to two puffs q.4 to 6 hr p.r.n. Information regarding smoking cessation was given to her and she was advised the need to quit smoking. She is instructed to gradually increase activity, continue with increased rest and increased fluids. She has completed her three day course of Zithromax and we will finish out her Keflex. She is to finish up with us on September 06 at 3:15. TIME SPENT: More than 60 minutes. [facility]
== END 2017-09-01 13:20 | disposition home or self-care (01) | DRG 202 ==
LOC: MEDSURG A 17:31
PROVIDERS: ADMIT Internal Medicine; ATTEND Internal Medicine
DX: J20.9 Acute bronchitis, unspecified (principal); J44.0 Chronic obstructive pulmonary disease with (acute) lower respiratory infection; R51 Headache; R07.81 Pleurodynia; R42 Dizziness and giddiness; R06.02 Shortness of breath; R06.2 Wheezing; I10 Essential (primary) hypertension; I51.7 Cardiomegaly; I25.10 Atherosclerotic heart disease of native coronary artery without angina pectoris; E78.5 Hyperlipidemia, unspecified; E03.9 Hypothyroidism, unspecified; M85.80 Other specified disorders of bone density and structure, unspecified site; M19.90 Unspecified osteoarthritis, unspecified site; E53.8 Deficiency of other specified B group vitamins; G89.4 Chronic pain syndrome; G25.81 Restless legs syndrome; F17.200 Nicotine dependence, unspecified, uncomplicated; Z79.02 Long term (current) use of antithrombotics/antiplatelets; Z79.899 Other long term (current) drug therapy; Z95.5 Presence of coronary angioplasty implant and graft; Z98.890 Other specified postprocedural states
CPT/HCPCS: 36415; 80053; 81001; 82550; 82803; 83874; 83880; 84484; 85025; 87040; 87070; 93005; 93010; 94640

== ENCOUNTER 2017-11-15 17:42 | Emergency (ER) ==
[2017-11-15 17:57] VITALS: BP 110/74; TEMP 99.8; BMI 28.1
[2017-11-15] MEDS ORDERED: DILAUDID 1 MG/ML SYRINGE IM STA (18:05)
--- NOTE | 2017-11-15 18:08 | ED.PDOC ---
General ED Provider: Dr. BINTA CARRILLO Chief Complaint: Back Pain Stated Complaint: back pain Time Seen by Physician: 17:45 Mode of Arrival: Walk-In Information Source: Patient, Family Exam Limitations: No limitations Primary Care Provider: SIA DOMINGUEZ Nursing and Triage Documentation Reviewed and Agree: Yes Reviewed sepsis parameters & appropriate labs ordered?: Yes System Inflammatory Response Syndrome: Not Applicable Sepsis Protocol: For patient's 13 years and over: Temp is 96.8 and below OR 101 and greater Pulse >90 BPM Resp >20/minute Acutely Altered Mental Status Are patient's symptoms suggestive of a new infection, such as: -Pneumonia -Skin, Soft Tissue -Endocarditis -UTI -Bone, Joint Infection -Implantable Device -Acute Abdominal Infection -Wound Infection -Meningitis -Blood Stream Catheter Infection -Unknown Musculoskeletal Complaint Exam - Back Pain Complaint/Exam Mechanism of Injury: Reports: No known trauma Onset/Duration: chronic pain worse today Symptoms Are: Still present Timing: Constant Episodes Lasting: Hours Initial Severity: Severe Current Severity: Moderate Location: Reports: Discrete (right buttock , right post leg) Character: Reports: Dull, Throbbing Aggravating: Reports: Movements, Lifting, Bending, Walking Alleviating: Reports: Rest, Position Associated Signs and Symptoms: Denies: Swelling, Redness, Bruising, Fever, Weakness, Numbness, Tingling, Abdominal pain, Flank pain, Bladder incontinence, Bowel incontinence, Weight loss, Pain with weight bearing Related History: Reports: Similar episode Epidural Abcess Risk Factors: Reports: None Related Surgical History: Reports: None Focal Tenderness: No Paraspinal Muscle Tenderness: No Paraspinal Muscle Spasm: No Scoliosis: No Lordosis: No Kyphosis: No SLR Test: Right Positive, Left Negative Hip Motion Testing Pain: Right Negative, Left Negative Focal Weakness: Present: None Focal Sensory Loss: Present: None Gait: Present: Normal Differential Diagnoses: Strain, Sprain Review of Systems - Review Of Systems Constitutional: Reports: No symptoms Eyes: Reports: No symptoms Ears, Nose, Mouth, Throat: Reports: No symptoms Respiratory: Reports: No symptoms Cardiac: Reports: No symptoms GI: Reports: No symptoms : Reports: No symptoms Musculoskeletal: Reports: Back pain Skin: Reports: No symptoms Neurological: Reports: No symptoms Endocrine: Reports: No symptoms Hematologic/Lymphatic: Reports: No symptoms All Other Systems: Reviewed and Negative Past Medical History - Past Medical History Previously Healthy: Yes Endocrine: Reports: Hypothyroid Cardiovascular: Reports: NC, CHF Respiratory: Reports: COPD Hematological: Reports: None Gastrointestinal: Reports: None Genitourinary: Reports: None Neuro/Psych: Reports: Depression Musculoskeletal: Reports: Arthritis Cancer: Reports: None Last Menstrual Period: N/A - Surgical History General Surgical History: Reports: Hysterectomy, Other - Family History Family History: Reports: Unknown - Social History Smoking Status: Current every day smoker, Heavy tobacco smoker Hx Substance Use: No Alcohol Screening: None - Immunizations Tetanus Shot up to Date: Yes Physical Exam - Physical Exam Appearance: Well-appearing, No pain distress, Well-nourished Eyes: SUNDEEP, EOMI, Conjunctiva clear ENT: Ears normal, Nose normal, Oropharynx normal Respiratory: Airway patent, Breath sounds clear, Breath sounds equal, Respirations nonlabored Cardiovascular: RRR, Pulses normal, No rub, No murmur GI/: Soft, Nontender, No masses, Bowel sounds normal, No Organomegaly Musculoskeletal: Normal strength, ROM intact, No edema, No calf tenderness Skin: Warm, Dry, Normal color Neurological: Sensation intact, Motor intact, Reflexes intact, Cranial nerves intact, Alert, Oriented Psychiatric: Affect appropriate, Mood appropriate Critical Care Note - Critical Care Note Total Time (mins): 0 Course - Course Orders, Labs, Meds: Orders Category Date Time Status Hydromorphone HCl [Dilaudid 1 mg/ml Syringe] MEDS 11/15/17 18:05 Stat 1 mg IM ONCE STA Medications Generic Name Dose Route Start Last Admin Trade Name Freq PRN Reason Stop Dose Admin Hydromorphone HCl 1 mg 11/15/17 18:05 Dilaudid 1 Mg/Ml Syringe IM 11/15/17 18:06 ONCE STA Vital Signs: Temp Pulse Resp BP Pulse Ox 11/15/17 17:43 99.8 F H 68 24 110/74 91 L Departure - Departure Time of Disposition: 18:07 Disposition: HOME SELF-CARE Discharge Problem: Lumbar radiculopathy Sciatica Qualifiers: Laterality: right Qualified Code(s): M54.31 - Sciatica, right side Instructions: Sciatica (ED), Lumbar Radiculopathy (ED), Lower Back Exercises ( ED) Condition: Good Pt referred to PMD for follow-up: Yes Additional Instructions: Please call your Family Physician as soon as possible to schedule a follow-up appointment. Allergies/Adverse Reactions: Allergies No Known Allergies Allergy (Verified 11/15/17 17:55) Home Medications: Ambulatory Orders Alprazolam [Xanax] 0.5 mg PO BEDTIME 11/09/13 Amlodipine Besylate [Norvasc] 5 mg PO BEDTIME 11/09/13 Aspirin [Twodot Aspirin] 81 mg PO BEDTIME 11/09/13 Clopidogrel Bisulfate [Plavix] 75 mg PO BEDTIME 11/09/13 Metoprolol Succinate [Toprol Xl] 25 mg PO BEDTIME 11/09/13 Nitroglycerin [Nitrostat] 0.4 mg PO PRN PRN 11/09/13 Pantoprazole Sodium 40 mg pe PO DAILY 11/09/13 Rosuvastatin Calcium [Crestor] 10 mg PO BEDTIME 11/09/13 Citalopram Hydrobromide [Citalopram HBr] 20 mg PO BEDTIME 06/16/15 Levothyroxine Sodium [Synthroid] 25 mcg PO QDAC 02/16/16 Duloxetine HCl [Cymbalta] 60 mg PO DAILY 08/29/17 Fluticasone/Vilanterol [Breo Ellipta 200-25 Mcg INH] 1 puff PO DAILY 08/29/17 Ropinirole HCl [Requip] 0.5 mg PO DAILY 08/29/17 Tizanidine HCl [Zanaflex] 4 mg PO TID PRN 08/29/17 Albuterol Sulfate [Proventil Hfa] 6.7 gm IH Q4-6H PRN #1 hfa.aer.ad 09/01/17 Cephalexin [Keflex] 500 mg PO Q8HR #21 capsule 09/01/17 Oxycodone-Acetaminophen 10-325 [Percocet 10-325] 1 tab PO Q8H 09/01/17 Prednisone 10 mg PO BIDWM #18 tablet 09/01/17 Hydrocodone/Acetaminophen [[place] 10-325 Tablet] 1 each PO Q8HR #12 tablet
== END 2017-11-15 18:36 | disposition home or self-care (01) ==
LOC: ED 17:42
DX: M54.16 Radiculopathy, lumbar region (principal); M54.41 Lumbago with sciatica, right side; F17.210 Nicotine dependence, cigarettes, uncomplicated; Z79.899 Other long term (current) drug therapy
CPT/HCPCS: 96372; 99283

== ENCOUNTER 2017-12-02 17:02 | Inpatient (IN) ==
--- NOTE | 2017-12-02 17:20 | ED.PDOC ---
General ED Provider: Dr. BEKAH SARAVIA Chief Complaint: Respiratory Complaint Stated Complaint: Flu like symptoms - 2 weeks - smoker - couugh, congesiton, fever Time Seen by Physician: 17:19 Mode of Arrival: Walk-In Information Source: Patient Exam Limitations: No limitations Primary Care Provider: SIA DOMINGUEZ Nursing and Triage Documentation Reviewed and Agree: Yes Reviewed sepsis parameters & appropriate labs ordered?: Yes System Inflammatory Response Syndrome: Not Applicable Sepsis Protocol: For patient's 13 years and over: Temp is 96.8 and below OR 101 and greater Pulse >90 BPM Resp >20/minute Acutely Altered Mental Status Are patient's symptoms suggestive of a new infection, such as: -Pneumonia -Skin, Soft Tissue -Endocarditis -UTI -Bone, Joint Infection -Implantable Device -Acute Abdominal Infection -Wound Infection -Meningitis -Blood Stream Catheter Infection -Unknown Review of Systems - Review Of Systems Constitutional: Reports: No symptoms, Malaise, Weakness Respiratory: Reports: Cough Cardiac: Reports: No symptoms GI: Reports: No symptoms : Reports: No symptoms Skin: Reports: No symptoms All Other Systems: Reviewed and Negative Past Medical History - Past Medical History Previously Healthy: Yes Endocrine: Reports: Hypothyroid Cardiovascular: Reports: DC, CHF Respiratory: Reports: COPD Hematological: Reports: None Gastrointestinal: Reports: None Genitourinary: Reports: None Neuro/Psych: Reports: Depression Musculoskeletal: Reports: Arthritis Cancer: Reports: None Last Menstrual Period: hysterectomy - Surgical History General Surgical History: Reports: Hysterectomy, Other - Family History Family History: Reports: Unknown - Social History Smoking Status: Current every day smoker, Heavy tobacco smoker Hx Substance Use: No Alcohol Screening: None Physical Exam - Physical Exam Appearance: Ill-appearing Ill-appearing: Mild Eyes: SUNDEEP, EOMI ENT: Oropharynx normal Neck: Supple Respiratory: Airway patent, Wheezes (mild bilateral) GI/: Soft, Nontender Musculoskeletal: Normal strength, ROM intact Skin: Warm, Dry, Normal color Neurological: Alert, Oriented Psychiatric: Affect appropriate, Mood appropriate Interpretation - Radiology Interpretation Radiology Interpretation By: Radiologist Exam Interpreted: CXR Xray Comments: Moderate hiatal hernia Critical Care Note - Critical Care Note Total Time (mins): 35 Course - Course Hematology/Chemistry: 12/02/17 17:39 12/02/17 17:39 Orders, Labs, Meds: Lab Review 01/12/18 01/12/18 17:39 17:39 WBC 8.04 RBC 4.57 Hgb 14.0 Hct 42.0 MCV 91.9 MCH 30.6 MCHC 33.3 RDW Coeff of Melody 13.3 Plt Count 156 Immature Gran % (Auto) 0.4 Neut % (Auto) 63.5 Lymph % (Auto) 20.6 Russell % (Auto) 13.4 H Eos % (Auto) 1.4 Baso % (Auto) 0.7 Immature Gran # (Auto) 0.0 Neut # 5.1 Lymph # 1.7 Russell # 1.1 Eos # 0.1 Baso # 0.1 Sodium 143 Potassium 4.0 Chloride 108 H Carbon Dioxide 28 Anion Gap 11.0 BUN 10 Creatinine 1.07 Estimated GFR (MDRD) 51.00 BUN/Creatinine Ratio 9.34 Glucose 69 L Calcium 9.7 Total Bilirubin < 0.3 AST 14 L ALT 15 Alkaline Phosphatase 60 Total Protein 7.1 Albumin 3.4 Globulin 3.7 Albumin/Globulin Ratio 0.92 Orders Category Date Time Status ADMIT PATIENT INPATIENT .TO [facility] (MONITORED BED) ADMISSION 12/02/17 18: 35 Active ABG DRAW REQUEST Stat CARDIO 12/02/17 18:31 Ordered NEBULIZER TREATMENT Routine CARDIO 12/02/17 18:34 Ordered NEBULIZER TREATMENT Routine CARDIO 12/02/17 18:40 Ordered NEBULIZER TREATMENT Stat CARDIO 12/02/17 18:34 Ordered OXYGEN Routine CARDIO 12/02/17 18:35 Ordered ACTIVITY .BR with BRP CARE 12/02/17 18:35 Active INTAKE & OUTPUT Q8HR CARE 12/02/17 18:35 Active TELEMETRY MONITORING TELE CARE 12/02/17 18:36 Active VITAL SIGNS Q8HR CARE 12/02/17 18:35 Active REGULAR DIET DIETARY 12/02/17 Breakfast Ordered ABG Stat LAB 12/02/17 18:30 Ordered CBC W/ AUTO DIFF DAILY@0600 LAB 12/03/17 06:00 Ordered CBC W/ AUTO DIFF DAILY@0600 LAB 12/04/17 06:00 Ordered CBC W/ AUTO DIFF Stat LAB 12/02/17 17:39 Completed COMPREHENSIVE METABOLIC PANEL DAILY@0600 LAB 12/03/17 06:00 Ordered COMPREHENSIVE METABOLIC PANEL DAILY@0600 LAB 12/04/17 06:00 Ordered COMPREHENSIVE METABOLIC PANEL Stat LAB 12/02/17 17:39 Completed Albuterol Sulfate 0.083% Neb [Albuterol 0.083% Neb] MEDS 12/02/17 20:00 Ordered 1 vial NEB RTQID Alprazolam [Xanax] MEDS 12/02/17 18:45 Ordered 0.5 mg PO BEDTIME Aspirin [Aspirin Chewable] MEDS 12/02/17 21:00 Ordered 81 mg PO BEDTIME Azithromycin [Zithromax] MEDS 12/02/17 19:00 Ordered 500 mg PO DAILY Calcium Carbonate [Calcium] MEDS 12/02/17 21:00 Ordered 1,200 mg PO BEDTIME Clopidogrel Bisulfate [Plavix] MEDS 12/02/17 21:00 Ordered 75 mg PO BEDTIME Fluticasone/Vilanterol [Breo Ellipta 200-25 Mcg INH] MEDS 12/03/17 09:00 Ordered 1 each IH DAILY Fluticasone/Vilanterol [Breo Ellipta 200-25 Mcg INH] MEDS 12/03/17 09:00 Ordered 1 puff PO DAILY Ipratropium/Albuterol Neb [Duoneb] MEDS 12/02/17 18:33 Discontinued 1 vial NEB ONCE STA Ipratropium/Albuterol Neb [Duoneb] MEDS 12/03/17 00:00 Ordered 1 vial NEB RTQ6H Levothyroxine Sodium [Synthroid] MEDS 12/03/17 06:30 Ordered 25 mcg PO QDAC Methylprednisolone Sod Succ/Pf [Solu-Medrol 40 mg] MEDS 12/02/17 19:00 Ordered 40 mg IVP Q8HR Metoprolol Succinate [Toprol Xl] MEDS 12/02/17 19:00 Ordered 25 mg PO BEDTIME Nitroglycerin [Nitrostat] MEDS 12/02/17 18:42 Ordered 0.4 mg SL PRN PRN [place]-3/Dha/Epa/Fish Oil [Fish Oil 1,000 mg Softgel] MEDS 12/03/17 09:00 Ordered 1 each PO DAILY Oxycodone-Acetaminophen 10-325 [Percocet 10-325] MEDS 12/02/17 19:00 Ordered 1 tab PO Q8H Pantoprazole Sodium [Protonix] MEDS 12/03/17 09:00 Ordered DOSE mg PO DAILY Ropinirole HCl [Requip] MEDS 12/03/17 09:00 Ordered 0.5 mg PO DAILY Rosuvastatin Calcium [Crestor] MEDS 12/02/17 21:00 Ordered 10 mg PO BEDTIME Sodium Chloride 0.9% [Sodium Chloride] 1,000 ml MEDS 12/02/17 19:00 Ordered IV 125 mls/hr RESUSCITATION STATUS Routine OTHERS 12/02/17 18:35 Ordered CHEST, 2 VIEWS PA & LAT Stat RADS 12/02/17 17:23 Completed Medications Generic Name Dose Route Start Last Admin Trade Name Freq PRN Reason Stop Dose Admin Albuterol Sulfate 1 vial 12/02/17 20:00 Albuterol 0.083% Neb NEB RTQID MONE Albuterol/Ipratropium 1 vial 12/03/17 00:00 Duoneb NEB RTQ6H MONE Aspirin 81 mg 12/02/17 21:00 Aspirin Chewable PO BEDTIME MONE Azithromycin 500 mg 12/02/17 19:00 Zithromax PO DAILY [facility] Clopidogrel Bisulfate 75 mg 12/02/17 21:00 Plavix PO BEDTIME [facility] Sodium Chloride 1,000 mls @ 125 mls/hr 12/02/17 19:00 Sodium Chloride IV .Q8H MONE Levothyroxine Sodium 25 mcg 12/03/17 06:30 Synthroid PO QDAC [facility] Methylprednisolone Sodium Succinate 40 mg 12/02/17 19:00 Solu-Medrol 40 Mg IVP Q8HR [facility] Metoprolol Succinate 25 mg 12/02/17 19:00 Toprol Xl PO BEDTIME MONE Nitroglycerin 0.4 mg 12/02/17 18:42 Nitrostat SL PRN PRN Chest Pain Non-Formulary Medication 0.5 mg 12/02/17 18:45 Alprazolam [Xanax] PO BEDTIME [facility] Non-Formulary Medication 1,200 mg 12/02/17 21:00 Calcium Carbonate [Calcium] PO BEDTIME MONE Non-Formulary Medication 1 each 12/03/17 09:00 Fluticasone/Vilanterol [Breo Ellipta 200-25 Mcg Inh] IH DAILY [facility] Non-Formulary Medication 1 puff 12/03/17 09:00 Fluticasone/Vilanterol [Breo Ellipta 200-25 Mcg Inh] PO DAILY [facility] Non-Formulary Medication 0.5 mg 12/03/17 09:00 Ropinirole Hcl [Requip] PO DAILY [facility] Non-Formulary Medication 1 each 12/03/17 09:00 [place]-3/Dha/Epa/Fish Oil [Fish Oil 1,000 Mg Softgel] PO DAILY MONE Oxycodone/Acetaminophen 1 tab 12/02/17 19:00 Percocet 10-325 PO Q8H MONE Pantoprazole Sodium mg 12/03/17 09:00 Protonix PO DAILY MONE Rosuvastatin Calcium 10 mg 12/02/17 21:00 Crestor PO BEDTIME MONE Discontinued Medications Generic Name Dose Route Start Last Admin Trade Name Freq PRN Reason Stop Dose Admin Albuterol/Ipratropium 1 vial 12/02/17 18:33 Duoneb NEB 12/02/17 18:34 ONCE STA Vital Signs: Temp Pulse Resp BP Pulse Ox 12/02/17 17:02 100.1 F H 92 H 24 160/82 H 94 L Departure - Departure Time of Disposition: 18:55 Disposition: ADMITTED INPATIENT Discharge Problem: Upper respiratory infection Condition: Stable Pt referred to PMD for follow-up: Yes (Follow up after discharge ) IPMP verified?: No Allergies/Adverse Reactions: Allergies No Known Allergies Allergy (Verified 12/02/17 17:12) Home Medications: Ambulatory Orders Alprazolam [Xanax] 0.5 mg PO BEDTIME 11/09/13 Aspirin [[place] Aspirin] 81 mg PO BEDTIME 11/09/13 Clopidogrel Bisulfate [Plavix] 75 mg PO BEDTIME 11/09/13 Metoprolol Succinate [Toprol Xl] 25 mg PO BEDTIME 11/09/13 Nitroglycerin [Nitrostat] 0.4 mg PO PRN PRN 11/09/13 Pantoprazole Sodium 40 mg pe PO DAILY 11/09/13 Rosuvastatin Calcium [Crestor] 10 mg PO BEDTIME 11/09/13 Levothyroxine Sodium [Synthroid] 25 mcg PO QDAC 02/16/16 Fluticasone/Vilanterol [Breo Ellipta 200-25 Mcg INH] 1 puff PO DAILY 08/29/17 Ropinirole HCl [Requip] 0.5 mg PO DAILY 08/29/17 Tizanidine HCl [Zanaflex] 4 mg PO TID PRN 08/29/17 Albuterol Sulfate [Proventil Hfa] 6.7 gm IH Q4-6H PRN #1 hfa.aer.ad 09/01/17 Oxycodone-Acetaminophen 10-325 [Percocet 10-325] 1 tab PO Q8H 09/01/17 Albuterol Sulfate 0.083% Neb [Albuterol 0.083% Neb] 1 vial NEB RTQ8H PRN Calcium Carbonate [Calcium] 1,200 mg PO BEDTIME 12/02/17 Fluticasone/Vilanterol [Breo Ellipta 200-25 Mcg INH] 1 each IH DAILY 12/02/17 [place]-3/Dha/Epa/Fish Oil [Fish Oil 1,000 mg Softgel] 1 each PO DAILY 12/02/17
--- NOTE | 2017-12-02 18:08 | DI ---
EXAM: PA and lateral views of the chest. HISTORY: Cough and fever. FINDINGS: There is degenerative remodeling of the right shoulder. The cardiac silhouette and pulmona ry vasculature are within normal limits. The costophrenic angles are clear. No infiltrate or consoli dation. There is a moderate hiatal hernia. There are calcified granulomas. Impression: No acute cardiopulmonary disease. Moderate hiatal hernia.
[2017-12-02] MEDS ORDERED: DUONEB NEB STA (18:33)
[2017-12-02] MEDS ORDERED: NITROSTAT SL PRN (18:42)
[2017-12-02] MEDS ORDERED: NON-FORMULARY MEDICATION (Alprazolam [Xanax] 0.5 MG) PO SCH ×2 (18:45→21:00)
[2017-12-02] MEDS ORDERED: SOLU-MEDROL 40 MG IVP SCH (19:00)
[2017-12-02] MEDS ORDERED: TOPROL XL PO SCH (19:00)
[2017-12-02] MEDS ORDERED: PERCOCET 10-325 PO SCH (19:00)
[2017-12-02] MEDS: SODIUM CHLORIDE 1,000 ML IV SCH (19:58)
[2017-12-02] MEDS ORDERED: ALBUTEROL 0.083% NEB NEB SCH (20:00)
[2017-12-02] MEDS ORDERED: XANAX ONE (20:14)
[2017-12-02] MEDS ORDERED: PERCOCET 10-325 ONE ×3 (20:14→23:54)
[2017-12-02] MEDS ORDERED: NON-FORMULARY MEDICATION (Tizanidine Hcl [Zanaflex] 4 MG) PO SCH (20:15)
[2017-12-02] MEDS ORDERED: ZANAFLEX ONE ×2 (20:15→23:54)
[2017-12-02] MEDS ORDERED: REQUIP ONE (20:20)
[2017-12-02] MEDS: ASPIRIN CHEWABLE PO SCH (20:47)
[2017-12-02] MEDS: ZITHROMAX PO SCH (20:48)
[2017-12-02] MEDS: NON-FORMULARY MEDICATION (Tizanidine Hcl [Zanaflex] 4 MG) PO SCH (20:48)
[2017-12-02] MEDS: TOPROL XL PO SCH (20:49)
[2017-12-02] MEDS: PLAVIX PO SCH (20:49)
[2017-12-02] MEDS: CRESTOR PO SCH (20:49)
[2017-12-02] MEDS: PERCOCET 10-325 PO SCH (20:49)
[2017-12-02] MEDS: SOLU-MEDROL 40 MG IVP SCH (20:50)
[2017-12-02] MEDS ORDERED: CALCIUM CARBONATE 1200 MG PO SCH (21:00)
[2017-12-02] MEDS ORDERED: NON-FORMULARY MEDICATION (Ropinirole Hcl [Requip] 0.5 MG) PO SCH (21:00)
[2017-12-02] MEDS ORDERED: ALBUTEROL 0.083% NEB NEB PRN (21:02)
[2017-12-02 21:25] VITALS: BMI 34.4
[2017-12-02] MEDS: DUONEB NEB SCH ×2 (22:53→22:56)
[2017-12-02] MEDS ORDERED: DUONEB NEB ONE (22:56)
[2017-12-03] MEDS: SODIUM CHLORIDE 1,000 ML IV SCH ×3 (03:20→19:38)
[2017-12-03] MEDS: PERCOCET 10-325 PO SCH ×3 (04:11→20:56)
[2017-12-03] MEDS: SOLU-MEDROL 40 MG IVP SCH ×3 (04:11→20:57)
[2017-12-03] MEDS: NON-FORMULARY MEDICATION (Tizanidine Hcl [Zanaflex] 4 MG) PO SCH (04:12)
[2017-12-03] MEDS: DUONEB NEB SCH ×3 (05:18→18:10)
[2017-12-03] MEDS: SYNTHROID PO SCH (05:36)
[2017-12-03] MEDS: PROTONIX PO SCH (08:29)
[2017-12-03] MEDS: ZITHROMAX PO SCH (08:29)
[2017-12-03] MEDS: OMEGA-3 FISH OIL PO SCH (08:29)
[2017-12-03] MEDS ORDERED: NON-FORMULARY MEDICATION (Omega-3/Dha/Epa/Fish Oil [Fish Oil 1,000 Mg Softgel] 1 EACH) PO SCH (09:00)
[2017-12-03] MEDS ORDERED: NON-FORMULARY MEDICATION (Fluticasone/Vilanterol [Breo Ellipta 200-25 Mcg Inh] 1 PUFF) PO SCH (09:00)
[2017-12-03] MEDS ORDERED: NON-FORMULARY MEDICATION (Ropinirole Hcl [Requip] 0.5 MG) PO SCH (09:00)
[2017-12-03] MEDS: ZANAFLEX PO SCH ×2 (13:43→20:57)
[2017-12-03] MEDS: VILANTEROL IH SCH (17:18)
[2017-12-03] MEDS: FLUTICASONE IH SCH (17:18)
[2017-12-03] MEDS: TOPROL XL PO SCH (20:55)
[2017-12-03] MEDS: REQUIP PO SCH (20:55)
[2017-12-03] MEDS: ASPIRIN CHEWABLE PO SCH (20:55)
[2017-12-03] MEDS: PLAVIX PO SCH (20:55)
[2017-12-03] MEDS: CALCIUM 500 + VIT D 200 MG TABLET PO SCH (20:56)
[2017-12-03] MEDS: XANAX PO SCH (20:57)
[2017-12-03] MEDS: CRESTOR PO SCH (20:57)
[2017-12-03] MEDS: TUSSIONEX PO SCH (22:18)
[2017-12-04] MEDS: SODIUM CHLORIDE 1,000 ML IV SCH ×2 (03:50→12:58)
[2017-12-04] MEDS: SOLU-MEDROL 40 MG IVP SCH ×3 (05:32→20:05)
[2017-12-04] MEDS: SYNTHROID PO SCH (05:32)
[2017-12-04] MEDS: ZANAFLEX PO SCH ×3 (05:32→20:06)
[2017-12-04] MEDS: PERCOCET 10-325 PO SCH ×3 (05:32→20:07)
[2017-12-04] MEDS: PROTONIX PO SCH (05:32)
[2017-12-04] MEDS: DUONEB NEB SCH ×4 (05:53→23:22)
[2017-12-04] MEDS: OMEGA-3 FISH OIL PO SCH (08:33)
[2017-12-04] MEDS: ZITHROMAX PO SCH (08:33)
[2017-12-04] MEDS: TUSSIONEX PO SCH ×2 (08:33→20:05)
[2017-12-04] MEDS: VILANTEROL IH SCH (08:34)
[2017-12-04] MEDS: FLUTICASONE IH SCH (08:34)
[2017-12-04] MEDS ORDERED: TUSSIONEX PO SCH (11:30)
[2017-12-04] MEDS: HUMULIN R SUBCUT PRN ×2 (12:22→20:05)
[2017-12-04] MEDS ORDERED: TESSALON PERLES PO PRN (17:56)
[2017-12-04] MEDS: PLAVIX PO SCH (20:05)
[2017-12-04] MEDS: TOPROL XL PO SCH (20:05)
[2017-12-04] MEDS: CRESTOR PO SCH (20:05)
[2017-12-04] MEDS: REQUIP PO SCH (20:06)
[2017-12-04] MEDS: CALCIUM 500 + VIT D 200 MG TABLET PO SCH (20:06)
[2017-12-04] MEDS: ASPIRIN CHEWABLE PO SCH (20:06)
[2017-12-04] MEDS: XANAX PO SCH (20:06)
[2017-12-05] MEDS: SODIUM CHLORIDE 1,000 ML IV SCH ×3 (00:10→12:23)
[2017-12-05] MEDS: DUONEB NEB SCH ×3 (04:58→22:00)
[2017-12-05] MEDS: PERCOCET 10-325 PO SCH ×3 (06:01→20:42)
[2017-12-05] MEDS: SOLU-MEDROL 40 MG IVP SCH (06:01)
[2017-12-05] MEDS: PROTONIX PO SCH (06:02)
[2017-12-05] MEDS: ZANAFLEX PO SCH ×3 (06:02→20:42)
[2017-12-05] MEDS: SYNTHROID PO SCH (06:02)
[2017-12-05] MEDS ORDERED: SOLU-MEDROL 40 MG IVP SCH (08:35)
[2017-12-05] MEDS: OMEGA-3 FISH OIL PO SCH (09:03)
[2017-12-05] MEDS: ROCEPHIN 1 GM in SODIUM CHLORIDE 50 ML IV SCH (09:03)
[2017-12-05] MEDS: TUSSIONEX PO SCH ×2 (09:04→20:40)
[2017-12-05] MEDS: FLUTICASONE IH SCH (09:05)
[2017-12-05] MEDS: VILANTEROL IH SCH (09:05)
--- NOTE | 2017-12-05 09:40 | HP ---
DATE OF SERVICE: 12/02/17 REASON FOR HOSPITALIZATION: Cough and congestion and chills duration two weeks. HISTORY OF PRESENT ILLNESS: 67 year old white female came to the emergency room with complaint of having, cough, congestion and fever off and on with poor appetite and weakness. The patient has been treated as an outpatient with antibiotics and steroids with some improvement but her condition has deteriorated. In the emergency room she was running fever of 100 and looked dehydrated. PAST MEDICAL HISTORY/PAST SURGICAL HISTORY: Obesity Generalized severe osteoarthritis Dyslipidemia Hypertension Hypothyroidism Restless leg syndrome Severe chronic lung disease REVIEW OF SYSTEMS: CONSTITUTIONAL: No night sweats. Weakness and fatigue. No fever or chills. HEENT: Eyes: No visual changes. No eye pain. No eye discharge. ENT: No runny nose. No epistaxis. No sinus pain. No sore throat. No odynophagia. No ear pain. No congestion. RESPIRATORY: Cough, Congestion. No hemoptysis. No shortness of breath. CARDIOVASCULAR: No angina symptoms. No CHF symptoms. No atypical chest pain for CAD. No palpitations. No orthopnea. Pleuritic pain. No PND. GASTROINTESTINAL: No abdominal pain. No vomiting. No diarrhea or constipation. No hematemesis. No hematochezia. Poor appetite. Mild Nausea. GENITOURINARY: No urgency. No frequency. No dysuria. No hematuria. No obstructive symptoms. No discharge. No pain. No significant abnormal bleeding. MUSCULOSKELETAL: No musculoskeletal pain. No joint swelling. No arthritis.Generalized aches and pains. NEUROLOGICAL: No headache. No neck pain. No syncope. No seizures. No dizziness. PSYCHIATRIC: Not anxious. No depression. No suicidal thoughts. No homicidal thoughts. SKIN: No rash. No lesions. No wounds. ENDOCRINE: No unexplained weight loss. No weight gain. HEMATOLOGIC/LYMPHATIC: No anemia. No purpura. No petechiae. No prolonged or excessive bleeding. No palpable lymph nodes. PERSONAL/FAMILY/SOCIAL HISTORY: The patient is and does activity of daily living. Smokes more than a pack a day. No alcohol abuse. Does all activity of daily living. Takes cares of her Aunts. No history of falls. Drives the car. Wants full code. MEDICATIONS: Xanax 0.5mg at bedtime, Aspirin one a day Plavix 75mg PO daily Toprol 25mg PO daily Nitroglycerin PRN Pantoprazole Rosuvastatin 10mg Po daily Synthroid 25mcg PO daily Requip 0.5mg PO daily Zanaflex 4mg PO three times a day Proventil HFA two puffs four times a day Percocet 10-325 Q 8 hour for pain Albuterol inhaler Calcium Carbonate [place] 3 Fish oil ALLERGIES: None PHYSICAL EXAMINATION: GENERAL: The patient is oriented to time, place and person. VITAL SIGNS: Temperature 100.1, pulse 92, respiratory rate 24, blood pressure 160/82 and pulse ox 94%. HEENT: Head normocephalic, atraumatic. Eyes: Extraocular muscles are intact. Pupils are equal, round and reactive to light and accommodation. Ears: No lesions. Nose appeared normal. Throat: No exudate or erythema. NECK: Supple. No JVP, no carotid bruit. No lymphadenopathy or thyromegaly. LUNGS: Decreased breath sounds. Clear to auscultation. Percussion note normal. Chest symmetrical. HEART: S1, S2, no S3. No murmurs. No cyanosis or clubbing. No ascites. Pulses: Dorsalis pedis and posterior tibial pulses +1 bilaterally. ABDOMEN: Soft. Nontender. Bowel sounds active. No CVA tenderness. No mass felt. EXTREMITIES: No edema. Full range of motion of all extremities, equal. NEUROLOGIC: No focal deficit. Cranial nerves II through XII are grossly intact. No headache, no double vision or headache. Reflexes are equal. SKIN: Dry. Intact. Turgor - normal. Mucosa membrane dry. LYMPHATIC: No palpable lymph nodes/no lymphedema. MUSCULOSKELETAL: Normal joints with no swelling. Muscle tone is normal. ASSESSMENT: 1. Acute bronchitis 2. Severe chronic lung disease 3. Flu type of symptoms with dehydration 4. Hypertension 5. Hypothyroidism 6. Dyslipidemia 7. Generalized osteoarthritis 8. Obesity 9. Smoking PLAN: 1. Counseling for smoking done 2. Will put patient on IV antibiotics Azithromycin 3. IV Rocephin 4. NEBS treatment 5. Steroids CONDITION: Stable. TIME SPENT: More than 70 minutes. MTDD
--- NOTE | 2017-12-05 11:13 | PN ---
DATE OF SERVICE: 12/03/17 SUBJECTIVE: 67 year old white female hospitalized with acute bronchitis/pneumonitis and dehydration. The patient had flu type of symptoms for past two weeks. She was running fever of 100 on admission. She is feeling a lot better now. REVIEW OF SYSTEMS: CONSTITUTIONAL: No night sweats. No fatigue, malaise, lethargy. No fever or chills. Weakness. HEENT: Eyes: No visual changes. No eye pain. No eye discharge. ENT: No runny nose. No epistaxis. No sinus pain. No sore throat. No odynophagia. No congestion. RESPIRATORY: Mild cough, no congestion. No hemoptysis. No shortness of breath. CARDIOVASCULAR: No angina symptoms. No CHF symptoms. No atypical chest pain for CAD. No palpitations. No orthopnea. GASTROINTESTINAL: No abdominal pain. No nausea or vomiting. No diarrhea or constipation. No hematemesis. No hematochezia. Appetite has improved. GENITOURINARY: No urgency. No frequency. No dysuria. No hematuria. No obstructive symptoms. No discharge. No pain. No significant abnormal bleeding. MUSCULOSKELETAL: No musculoskeletal pain; no joint swelling. NEUROLOGICAL: No headache. No neck pain. No syncope. No seizures. No dizziness. PSYCHIATRIC: Not anxious. No depression. No suicidal thoughts. No homicidal thoughts. SKIN: No rash. No lesions. No wounds. ENDOCRINE: No unexplained weight loss. No weight gain. HEMATOLOGIC/LYMPHATIC: No anemia. No purpura. No petechiae. No prolonged or excessive bleeding. No palpable lymph nodes. PHYSICAL EXAMINATION: GENERAL: The patient is oriented to time, place and person. VITAL SIGNS: Temperature 97, pulse 64, respiratory rate 16, blood pressure 110/ 62 and pulse ox 97%. HEENT: Head normocephalic, atraumatic. Eyes: Extraocular muscles are intact. Pupils are equal, round and reactive to light and accommodation. Ears: No lesions. Nose appeared normal. Throat: No exudate or erythema. NECK: Supple. No JVD, no carotid bruit. No lymphadenopathy or thyromegaly. LUNGS: Decreased breath sounds but clear to auscultation. Percussion note normal. Chest symmetrical. HEART: S1, S2, no S3. No murmurs. No cyanosis or clubbing. No ascites. Pulses: Dorsalis pedis and posterior tibial pulses +1 to +2 both sides. ABDOMEN: Soft. Nontender. Bowel sounds active. No CVA tenderness. No mass felt. EXTREMITIES: No edema. Full range of motion of all extremities, equal. NEUROLOGIC: No focal deficit. Cranial nerves II through XII are grossly intact. No headache, no double vision or headache. SKIN: Not dry. Intact. Turgor - normal. LYMPHATIC: No palpable lymph nodes/no lymphedema. MUSCULOSKELETAL: Normal joints with no swelling. Muscle tone is normal. LABS: hgb 13.1, hct 40, WBC 5,900 normal differential, creatinine 1.1, BUN 16. ASSESSMENT: 1. Acute bronchitis with flu type of symptoms with dehydration all seems to be resolving PLAN: 1. Continue antibiotics, steroids and NEBS treatment CONDITION: Stable. 2. 3. TIME SPENT: More than 30 minutes. Plan and coordination of the patient's care discussed in the presence of nurse. LILA
[2017-12-05] MEDS: HUMULIN R SUBCUT PRN ×3 (11:27→20:43)
--- NOTE | 2017-12-05 11:30 | PCM.PROG ---
Attending Provider: ATTENDING PROVIDER: Dr. SIA DOMINGUEZ This patient is seen with Deisy Walters, Nurse Practitioner. DATE OF SERVICE: 12/05/17 SUBJECTIVE: This 67 year old WHITE/ F was hospitalized 12/02/17. The patient is lying in bed resting comfortably. She had fever this morning and still coughing. REVIEW OF SYSTEMS: CONSTITUTIONAL: Fever. No chills. No night sweats. No fatigue, malaise, lethargy. HEENT: Eyes: No visual changes. No eye pain. No eye discharge. ENT: No runny nose. No epistaxis. No sinus pain. No odynophagia. No congestion. RESPIRATORY: Cough and congestion. No hemoptysis. No shortness of breath. CARDIOVASCULAR: No angina symptoms. No CHF symptoms. No atypical chest pain for CAD. No palpitations. No orthopnea.. GASTROINTESTINAL: No abdominal pain. No nausea or vomiting. No diarrhea or constipation. No hematemesis. No hematochezia. GENITOURINARY: No urgency. No frequency. No dysuria. No hematuria. No obstructive symptoms. No discharge. No pain. No significant abnormal bleeding. MUSCULOSKELETAL: No musculoskeletal pain; no joint swelling. NEUROLOGICAL: Awake, alert, oriented to time, place and person. No headache. No neck pain. No syncope. No seizures. No dizziness. PSYCHIATRIC: Not anxious. No depression. No suicidal thoughts. No homicidal thoughts. SKIN: No rash. No lesions. No wounds. ENDOCRINE: No unexplained weight loss. No weight gain. HEMATOLOGIC/LYMPHATIC: No anemia. No purpura. No petechiae. No prolonged or excessive bleeding. No palpable lymph nodes. PHYSICAL EXAMINATION: GENERAL: The patient is resting comfortably in bed in no distress. VITAL SIGNS: Temperature 100.0 F, Pulse 84, Respiratory Rate 20, BP 152/85, Pulse Ox 92% HEENT: Head normocephalic, atraumatic. Eyes: Extraocular muscles are intact. Pupils are equal, round and reactive to light and accommodation. Ears: No lesions. Nose appeared normal. Throat: No exudate or erythema. NECK: Supple. No JVD, no carotid bruit. No lymphadenopathy or thyromegaly. LUNGS: Diminished breath sounds bilaterally with mild expiratory wheeze. Percussion note normal. Chest symmetrical. HEART: S1, S2, no S3. No murmurs. No cyanosis or clubbing. No ascites. Pulses: Dorsalis pedis and posterior tibial pulses +1 to +2 both sides. ABDOMEN: Soft. Non-tender. Bowel sounds active. No CVA tenderness. No mass felt. EXTREMITIES: No edema. Full range of motion of all extremities, equal. NEUROLOGIC: No focal deficit. Cranial nerves II through XII are grossly intact. No headache, no double vision or headache. SKIN: Not dry. Intact. Turgor-normal. LYMPHATIC: No palpable lymph nodes/no lymphedema. MUSCULOSKELETAL: Normal joints with no swelling. Muscle tone is normal. LAB REVIEW: 12/05/17 04:30 12/05/17 04:30 12/05/17 04:30: Sodium 139, Potassium 4.3, Chloride 107, Carbon Dioxide 21 L, Anion Gap 15.3, BUN 22 H, Creatinine 0.98, Estimated GFR (MDRD) 57.00, BUN/ Creatinine Ratio 22.44, Glucose 117 H D, Calcium 10.0, Total Bilirubin 0.3, AST 20, ALT 17, Alkaline Phosphatase 53, Total Protein 6.8, Albumin 3.1 L, Globulin 3.7, Albumin/Globulin Ratio 0.84 12/05/17 04:30: WBC 13.02 H, RBC 4.31, Hgb 13.0, Hct 40.7, MCV 94.4, MCH 30.2, MCHC 31.9, RDW Coeff of Melody 13.3, Plt Count 125 L, Immature Gran % (Auto) 0.5, Neut % (Auto) 89.8, Lymph % (Auto) 4.1 L, [place] % (Auto) 5.5, Eos % (Auto) 0.0, Baso % (Auto) 0.1, Immature Gran # (Auto) 0.1, Neut # 11.7 H, Lymph # 0.5 L, [place] # 0.7, Eos # 0.0, Baso # 0.0 ASSESSMENT: 1. Acute bronchitis 2. Severe COPD 3. Heavy smoker 4. Weakness 5. Dehydration improving PLAN: 1. Decrease IV fluids to 50 mL/hr 2. UA 3. Flu swab 4. Rocephin 1 gm IV daily 5. Solu-Medrol 80 q.8hr Plan and coordination of the patient's care discussed in the presence of Supervisor Ship Maintenance Services and nurse. CONDITION: Stable SCRIBED BY: JANAK MORENO, Electrical And Electronic Assembler scribed while in presence of service performed by Dr. Dominguez/Deisy Walters APRN on 12/05/17 ([id number])
[2017-12-05] MEDS: SOLU-MEDROL 125 MG IVP SCH ×3 (13:16→20:43)
[2017-12-05] MEDS: TAMIFLU PO SCH ×2 (13:37→20:43)
--- NOTE | 2017-12-05 14:07 | PN ---
DATE OF SERVICE: 12/04/17 SUBJECTIVE: 67 year old white female hospitalized with dehydration, weakness and cough and congestion of two weeks duration. The patient had fever of 100 in the emergency room. The patient definitely had influenza type of sickness with bronchitis and dehydration. The patient's condition has improved. REVIEW OF SYSTEMS: CONSTITUTIONAL: No night sweats. No fatigue, malaise, lethargy. No fever or chills. HEENT: Eyes: No visual changes. No eye pain. No eye discharge. ENT: No runny nose. No epistaxis. No sinus pain. No sore throat. No odynophagia. No congestion. RESPIRATORY:Still coughing some, no congestion. No hemoptysis. No shortness of breath. CARDIOVASCULAR: No angina symptoms. No CHF symptoms. No atypical chest pain for CAD. No palpitations. No orthopnea. GASTROINTESTINAL: No abdominal pain. No nausea or vomiting. No diarrhea or constipation. No hematemesis. No hematochezia. GENITOURINARY: No urgency. No frequency. No dysuria. No hematuria. No obstructive symptoms. No discharge. No pain. No significant abnormal bleeding. MUSCULOSKELETAL: No musculoskeletal pain; no joint swelling. NEUROLOGICAL: No headache. No neck pain. No syncope. No seizures. No dizziness. PSYCHIATRIC: Not anxious. No depression. No suicidal thoughts. No homicidal thoughts. SKIN: No rash. No lesions. No wounds. ENDOCRINE: No unexplained weight loss. No weight gain. HEMATOLOGIC/LYMPHATIC: No anemia. No purpura. No petechiae. No prolonged or excessive bleeding. No palpable lymph nodes. PHYSICAL EXAMINATION: VITAL SIGNS: Temperature 97, pulse 88, respiratory rate 20, blood pressure 126/ 64 and pulse ox 97%. HEENT: Head normocephalic, atraumatic. Eyes: Extraocular muscles are intact. Pupils are equal, round and reactive to light and accommodation. Ears: No lesions. Nose appeared normal. Throat: No exudate or erythema. NECK: Supple. No JVD, no carotid bruit. No lymphadenopathy or thyromegaly. LUNGS: Decreased breath sounds with mild wheeze. Percussion note normal. Chest symmetrical. HEART: S1, S2, no S3. No murmurs. No cyanosis or clubbing. No ascites. Pulses: Dorsalis pedis and posterior tibial pulses +1 to +2 both sides. ABDOMEN: Soft. Nontender. Bowel sounds active. No CVA tenderness. No mass felt. EXTREMITIES: No edema. Full range of motion of all extremities, equal. NEUROLOGIC: No focal deficit. Cranial nerves II through XII are grossly intact. No headache, no double vision or headache. SKIN: Not dry. Intact. Turgor - normal. LYMPHATIC: No palpable lymph nodes/no lymphedema. MUSCULOSKELETAL: Normal joints with no swelling. Muscle tone is normal. LABS: Hgb 12, hct 37, WBC 10,900 normal differential, creatinine 1, BUN 19, potassium 4.7 ASSESSMENT: 1. Flu type of sickness with likely influenza 2. Bronchitis been resolving 3. COPD with smoking PLAN: 1. Counseling for smoking done 2. Give Tussionex three times a day as she has dry cough 3. Continue steroids, antibiotics and NEBS treatment CONDITION: Improving. TIME SPENT: More than 30 minutes. Plan and coordination of the patient's care discussed in the presence of nurse. LILA
[2017-12-05] MEDS: CALCIUM 500 + VIT D 200 MG TABLET PO SCH (20:42)
[2017-12-05] MEDS: XANAX PO SCH (20:42)
[2017-12-05] MEDS: PLAVIX PO SCH (20:42)
[2017-12-05] MEDS: REQUIP PO SCH (20:42)
[2017-12-05] MEDS: ASPIRIN CHEWABLE PO SCH (20:42)
[2017-12-05] MEDS: CRESTOR PO SCH (20:43)
[2017-12-05] MEDS: TOPROL XL PO SCH (20:43)
[2017-12-06] MEDS: DUONEB NEB SCH ×4 (05:16→20:24)
[2017-12-06] MEDS: SODIUM CHLORIDE 1,000 ML IV SCH (06:10)
[2017-12-06] MEDS: HUMULIN R SUBCUT PRN ×4 (06:11→20:23)
[2017-12-06] MEDS: ZANAFLEX PO SCH ×3 (06:11→20:12)
[2017-12-06] MEDS: SYNTHROID PO SCH (06:11)
[2017-12-06] MEDS: PERCOCET 10-325 PO SCH ×3 (06:11→20:10)
[2017-12-06] MEDS: SOLU-MEDROL 125 MG IVP SCH ×3 (06:11→20:12)
[2017-12-06] MEDS: PROTONIX PO SCH (06:11)
[2017-12-06] MEDS: FLUTICASONE IH SCH (09:15)
[2017-12-06] MEDS: VILANTEROL IH SCH (09:15)
[2017-12-06] MEDS: ROCEPHIN 1 GM in SODIUM CHLORIDE 50 ML IV SCH (09:16)
[2017-12-06] MEDS: TUSSIONEX PO SCH ×2 (09:16→20:12)
[2017-12-06] MEDS: OMEGA-3 FISH OIL PO SCH (09:16)
[2017-12-06] MEDS: TAMIFLU PO SCH ×2 (09:16→20:12)
--- NOTE | 2017-12-06 10:01 | PCM.PROG ---
Attending Provider: ATTENDING PROVIDER: Dr. SIA DOMINGUEZ This patient is seen with Deisy Walters, Nurse Practitioner. DATE OF SERVICE: 12/06/17 SUBJECTIVE: This 67 year old WHITE/ F was hospitalized 12/02/17. The patient is lying in bed, alert. She is feeling somewhat better, is still wheezing. REVIEW OF SYSTEMS: CONSTITUTIONAL: No night sweats. No fatigue, malaise, lethargy. No fever or chills. HEENT: Eyes: No visual changes. No eye pain. No eye discharge. ENT: No runny nose. No epistaxis. No sinus pain. No odynophagia. No congestion. RESPIRATORY: Cough and wheeze. Bilateral rhonchi. No hemoptysis. No shortness of breath. CARDIOVASCULAR: No angina symptoms. No CHF symptoms. No atypical chest pain for CAD. No palpitations. No orthopnea.. GASTROINTESTINAL: No abdominal pain. No nausea or vomiting. No diarrhea or constipation. No hematemesis. No hematochezia. GENITOURINARY: No urgency. No frequency. No dysuria. No hematuria. No obstructive symptoms. No discharge. No pain. No significant abnormal bleeding. MUSCULOSKELETAL: No musculoskeletal pain; no joint swelling. NEUROLOGICAL: Awake, alert, oriented to time, place and person. No headache. No neck pain. No syncope. No seizures. No dizziness. PSYCHIATRIC: Not anxious. No depression. No suicidal thoughts. No homicidal thoughts. SKIN: No rash. No lesions. No wounds. ENDOCRINE: No unexplained weight loss. No weight gain. HEMATOLOGIC/LYMPHATIC: No anemia. No purpura. No petechiae. No prolonged or excessive bleeding. No palpable lymph nodes. PHYSICAL EXAMINATION: GENERAL: The patient is awake, alert and oriented, lying in bed in no distress. VITAL SIGNS: Temperature 97.4 F, Pulse 53, Respiratory Rate 18, BP 141/66, Pulse Ox 96% HEENT: Head normocephalic, atraumatic. Eyes: Extraocular muscles are intact. Pupils are equal, round and reactive to light and accommodation. Ears: No lesions. Nose appeared normal. Throat: No exudate or erythema. NECK: Supple. No JVD, no carotid bruit. No lymphadenopathy or thyromegaly. LUNGS: Clear to auscultation. Percussion note normal. Chest symmetrical. HEART: S1, S2, no S3. No murmurs. No cyanosis or clubbing. No ascites. Pulses: Dorsalis pedis and posterior tibial pulses +1 to +2 both sides. ABDOMEN: Soft. Non-tender. Bowel sounds active. No CVA tenderness. No mass felt. EXTREMITIES: No edema. Full range of motion of all extremities, equal. NEUROLOGIC: No focal deficit. Cranial nerves II through XII are grossly intact. No headache, no double vision or headache. SKIN: Not dry. Intact. Turgor-normal. LYMPHATIC: No palpable lymph nodes/no lymphedema. MUSCULOSKELETAL: Normal joints with no swelling. Muscle tone is normal. LAB REVIEW: 12/06/17 05:00 12/06/17 05:00 12/06/17 05:00: Sodium 141, Potassium 4.1, Chloride 107, Carbon Dioxide 29 D, Anion Gap 9.1, BUN 22 H, Creatinine 0.99, Estimated GFR (MDRD) 56.00, BUN/ Creatinine Ratio 22.22, Glucose 215 H, Calcium 9.5, Total Bilirubin < 0.3, AST 17, ALT 17, Alkaline Phosphatase 44 L, Total Protein 6.0, Albumin 2.7 L, Globulin 3.3, Albumin/Globulin Ratio 0.82 12/06/17 05:00: WBC 5.48 D, RBC 3.78 L, Hgb 11.4 L, Hct 35.1 L, MCV 92.9, MCH 30.2, MCHC 32.5, RDW Coeff of Melody 13.2, Plt Count 106 L, Neutrophils % (Manual) 92.0 H, Lymphocytes % (Manual) 6.0 L, Monocytes % (Manual) 2.0, Anisocytosis Not present 12/05/17 10:30: Influenza A (Rapid) Positive by naat H, Influenza B (Rapid) Negative by naat 12/05/17 10:30: Urine Color Yellow, Urine Clarity Clear, Urine pH 5.5, Ur Specific [place] <=1.005, Urine Protein Negative, Urine Glucose (UA) Trace, Urine Ketones Negative, Urine Blood Trace-lysed, Urine Nitrite Negative, Urine Bilirubin Negative, Urine Urobilinogen 0.2, Ur Leukocyte Esterase Negative, Urine Microscopic RBC 0-2, Ur Squamous Epith Cells 0-2 ASSESSMENT: 1. Influenza A positive 2. Acute bronchitis 3. Severe COPD 4. Heavy smoker 5. Weakness 6. Dehydration improving PLAN: 1. Solu-Medrol increase to 125 q.8hr Plan and coordination of the patient's care discussed in the presence of Rrt and nurse. CONDITION: Stable SCRIBED BY: JANAK MORENO Coffee Shop Attendant scribed while in presence of service performed by Dr. Dominguez/Deisy Walters APRN on 12/06/17 ([id number])
[2017-12-06] MEDS: ASPIRIN CHEWABLE PO SCH (20:11)
[2017-12-06] MEDS: REQUIP PO SCH (20:11)
[2017-12-06] MEDS: CALCIUM 500 + VIT D 200 MG TABLET PO SCH (20:11)
[2017-12-06] MEDS: CRESTOR PO SCH (20:11)
[2017-12-06] MEDS: TOPROL XL PO SCH (20:11)
[2017-12-06] MEDS: XANAX PO SCH (20:12)
[2017-12-06] MEDS: PLAVIX PO SCH (20:12)
[2017-12-07] MEDS: SODIUM CHLORIDE 1,000 ML IV SCH (03:22)
[2017-12-07] MEDS: DUONEB NEB SCH ×4 (04:41→21:30)
[2017-12-07] MEDS: SOLU-MEDROL 125 MG IVP SCH ×3 (05:30→22:06)
[2017-12-07] MEDS: SYNTHROID PO SCH (05:30)
[2017-12-07] MEDS: ZANAFLEX PO SCH ×3 (05:30→22:04)
[2017-12-07] MEDS: PROTONIX PO SCH (05:30)
[2017-12-07] MEDS: PERCOCET 10-325 PO SCH ×3 (05:30→22:05)
[2017-12-07] MEDS: HUMULIN R SUBCUT PRN ×4 (06:09→22:13)
[2017-12-07] MEDS ORDERED: TORADOL IVP PRN (08:40)
[2017-12-07] MEDS: FLUTICASONE IH SCH (09:41)
[2017-12-07] MEDS: OMEGA-3 FISH OIL PO SCH (09:41)
[2017-12-07] MEDS: VILANTEROL IH SCH (09:41)
[2017-12-07] MEDS: ROCEPHIN 1 GM in SODIUM CHLORIDE 50 ML IV SCH (09:42)
[2017-12-07] MEDS: TAMIFLU PO SCH ×2 (09:42→22:04)
[2017-12-07] MEDS: TUSSIONEX PO SCH ×2 (09:43→22:06)
--- NOTE | 2017-12-07 10:13 | PCM.PROG ---
Attending Provider: ATTENDING PROVIDER: Dr. SIA DOMINGUEZ DATE OF SERVICE: 12/07/17 SUBJECTIVE: This 67 year old WHITE/ F was hospitalized 12/02/17. The patient is hospitalized with Influenza. The patient's condition is steadily improving. REVIEW OF SYSTEMS: CONSTITUTIONAL: No night sweats. No fatigue, malaise, lethargy. No fever or chills. HEENT: Eyes: No visual changes. No eye pain. No eye discharge. ENT: No runny nose. No epistaxis. No sinus pain. No odynophagia. No congestion. RESPIRATORY: Mild cough and congestion. No hemoptysis. No shortness of breath. CARDIOVASCULAR: No angina symptoms. No CHF symptoms. No atypical chest pain for CAD. No palpitations. No orthopnea.. GASTROINTESTINAL: No abdominal pain. No nausea or vomiting. No diarrhea or constipation. No hematemesis. No hematochezia. GENITOURINARY: No urgency. No frequency. No dysuria. No hematuria. No obstructive symptoms. No discharge. No pain. No significant abnormal bleeding. MUSCULOSKELETAL: No musculoskeletal pain; no joint swelling. NEUROLOGICAL: Awake, alert, oriented to time, place and person. No headache. No neck pain. No syncope. No seizures. No dizziness. PSYCHIATRIC: Not anxious. No depression. No suicidal thoughts. No homicidal thoughts. SKIN: No rash. No lesions. No wounds. ENDOCRINE: No unexplained weight loss. No weight gain. HEMATOLOGIC/LYMPHATIC: No anemia. No purpura. No petechiae. No prolonged or excessive bleeding. No palpable lymph nodes. PHYSICAL EXAMINATION: GENERAL: The patient is awake, alert and oriented, lying in bed in no distress. VITAL SIGNS: Temperature 97.7 F, Pulse 51, Respiratory Rate 16, BP 167/75, Pulse Ox 94% HEENT: Head normocephalic, atraumatic. Eyes: Extraocular muscles are intact. Pupils are equal, round and reactive to light and accommodation. Ears: No lesions. Nose appeared normal. Throat: No exudate or erythema. NECK: Supple. No JVD, no carotid bruit. No lymphadenopathy or thyromegaly. LUNGS: Good air entry with harsh breathing. Percussion note normal. Chest symmetrical. HEART: S1, S2, no S3. No murmurs. No cyanosis or clubbing. No ascites. Pulses: Dorsalis pedis and posterior tibial pulses +1 to +2 both sides. ABDOMEN: Soft. Non-tender. Bowel sounds active. No CVA tenderness. No mass felt. EXTREMITIES: No edema. Full range of motion of all extremities, equal. NEUROLOGIC: No focal deficit. Cranial nerves II through XII are grossly intact. No headache, no double vision or headache. SKIN: Not dry. Intact. Turgor-normal. LYMPHATIC: No palpable lymph nodes/no lymphedema. MUSCULOSKELETAL: Normal joints with no swelling. Muscle tone is normal. LAB REVIEW: 12/07/17 04:30 12/07/17 04:30 12/07/17 04:30: Sodium 142, Potassium 3.7, Chloride 106, Carbon Dioxide 25, Anion Gap 14.7, BUN 22 H, Creatinine 0.87, Estimated GFR (MDRD) 65.00, BUN/ Creatinine Ratio 25.28, Glucose 145 H D, Calcium 9.7, Total Bilirubin < 0.3, AST 18, ALT 20, Alkaline Phosphatase 43 L, Total Protein 6.2, Albumin 2.7 L, Globulin 3.5, Albumin/Globulin Ratio 0.77 12/07/17 04:30: WBC 5.65, RBC 3.96 L, Hgb 12.0, Hct 36.2 L, MCV 91.4, MCH 30.3, MCHC 33.1, RDW Coeff of Melody 12.7, Plt Count 108 L, Immature Gran % (Auto) 0.9, Neut % (Auto) 80.0, Lymph % (Auto) 13.8, [place] % (Auto) 5.1, Eos % (Auto) 0.0, Baso % (Auto) 0.2, Immature Gran # (Auto) 0.1, Neut # 4.5, Lymph # 0.8, [place] # 0.3 L, Eos # 0.0, Baso # 0.0 ASSESSMENT: 1. Influenza A positive 2. Acute bronchitis 3. Severe COPD 4. Heavy smoker 5. Weakness 6. Dehydration improving PLAN: 1. Continue steroids, antibiotics and nebs treatment 2. Toradol 30 mg IV q.8 3. D/C telemetry 4. D/C IV fluids Plan and coordination of the patient's care discussed in the presence of Business System Consultant and nurse. EDUCATION: Counseling for smoking and weight loss done. Advised pulmonary rehabilitation. Side effects of steroids discussed to include avascular necrosis of the femoral head, cataracts, et cetera. The patient verbalized understanding and is agreeable. CONDITION: Stable SCRIBED BY: JANAK MORENO Tandem Mill Sticker scribed while in presence of service performed by Dr. SIA DOMINGUEZ on 12/07/17 ([id number])
[2017-12-07] MEDS: REQUIP PO SCH (22:03)
[2017-12-07] MEDS: CRESTOR PO SCH (22:04)
[2017-12-07] MEDS: CALCIUM 500 + VIT D 200 MG TABLET PO SCH (22:04)
[2017-12-07] MEDS: ASPIRIN CHEWABLE PO SCH (22:04)
[2017-12-07] MEDS: PLAVIX PO SCH (22:04)
[2017-12-07] MEDS: TOPROL XL PO SCH (22:05)
[2017-12-07] MEDS: XANAX PO SCH (22:05)
[2017-12-08] MEDS: SOLU-MEDROL 125 MG IVP SCH ×2 (04:16→13:42)
[2017-12-08] MEDS: ZANAFLEX PO SCH ×2 (05:35→13:41)
[2017-12-08] MEDS: PROTONIX PO SCH (05:35)
[2017-12-08] MEDS: SYNTHROID PO SCH (05:35)
[2017-12-08] MEDS: PERCOCET 10-325 PO SCH ×2 (05:36→13:41)
[2017-12-08] MEDS: DUONEB NEB SCH ×3 (05:40→14:17)
[2017-12-08] MEDS: HUMULIN R SUBCUT PRN ×2 (05:58→12:34)
--- NOTE | 2017-12-08 09:46 | PCM.PROG ---
Attending Provider: ATTENDING PROVIDER: Dr. SIA DOMINGUEZ This patient is seen with Deisy Walters, Nurse Practitioner. DATE OF SERVICE: 12/08/17 SUBJECTIVE: This 67 year old WHITE/ F was hospitalized 12/02/17. The patient is sitting on the side of bed, alert. She has been up and about walking, feeling much better. Cough improved. REVIEW OF SYSTEMS: CONSTITUTIONAL: No night sweats. No fatigue, malaise, lethargy. No fever or chills. HEENT: Eyes: No visual changes. No eye pain. No eye discharge. ENT: No runny nose. No epistaxis. No sinus pain. No odynophagia. No congestion. RESPIRATORY: Cough. No hemoptysis. No shortness of breath. CARDIOVASCULAR: No angina symptoms. No CHF symptoms. No atypical chest pain for CAD. No palpitations. No orthopnea.. GASTROINTESTINAL: No abdominal pain. No nausea or vomiting. No diarrhea or constipation. No hematemesis. No hematochezia. GENITOURINARY: No urgency. No frequency. No dysuria. No hematuria. No obstructive symptoms. No discharge. No pain. No significant abnormal bleeding. MUSCULOSKELETAL: No musculoskeletal pain; no joint swelling. NEUROLOGICAL: Awake, alert, oriented to time, place and person. No headache. No neck pain. No syncope. No seizures. No dizziness. PSYCHIATRIC: Not anxious. No depression. No suicidal thoughts. No homicidal thoughts. SKIN: No rash. No lesions. No wounds. ENDOCRINE: No unexplained weight loss. No weight gain. HEMATOLOGIC/LYMPHATIC: No anemia. No purpura. No petechiae. No prolonged or excessive bleeding. No palpable lymph nodes. PHYSICAL EXAMINATION: GENERAL: The patient is awake, alert and oriented, lying/sitting in bed in no distress. VITAL SIGNS: Temperature 96.8 F, Pulse 50, Respiratory Rate 14, BP 171/80, Pulse Ox 93% HEENT: Head normocephalic, atraumatic. Eyes: Extraocular muscles are intact. Pupils are equal, round and reactive to light and accommodation. Ears: No lesions. Nose appeared normal. Throat: No exudate or erythema. NECK: Supple. No JVD, no carotid bruit. No lymphadenopathy or thyromegaly. LUNGS: Diminished breath sounds bilaterally. Clear to auscultation. Percussion note normal. Chest symmetrical. HEART: S1, S2, no S3. No murmurs. No cyanosis or clubbing. No ascites. Pulses: Dorsalis pedis and posterior tibial pulses +1 to +2 both sides. ABDOMEN: Soft. Non-tender. Bowel sounds active. No CVA tenderness. No mass felt. EXTREMITIES: No edema. Full range of motion of all extremities, equal. NEUROLOGIC: No focal deficit. Cranial nerves II through XII are grossly intact. No headache, no double vision or headache. SKIN: Not dry. Intact. Turgor-normal. LYMPHATIC: No palpable lymph nodes/no lymphedema. MUSCULOSKELETAL: Normal joints with no swelling. Muscle tone is normal. LAB REVIEW: 12/08/17 05:25 12/07/17 04:30 12/08/17 05:25: WBC 6.08, RBC 3.94 L, Hgb 11.7 L, Hct 35.1 L, MCV 89.1, MCH 29.7 , MCHC 33.3, RDW Coeff of Melody 12.5, Plt Count 116 L, Immature Gran % (Auto) 1.3 , Neut % (Auto) 79.7, Lymph % (Auto) 15.0, [place] % (Auto) 3.8, Eos % (Auto) 0.0, Baso % (Auto) 0.2, Immature Gran # (Auto) 0.1, Neut # 4.9, Lymph # 0.9, [place] # 0.2 L, Eos # 0.0, Baso # 0.0 ASSESSMENT: 1. Influenza A positive, resolved 2. Acute bronchitis 3. Severe COPD 4. Heavy smoker 5. Weakness 6. Dehydration resolved PLAN: 1. Repeat chest x-ray 2. Anticipate d/c home if chest x-ray is better Plan and coordination of the patient's care discussed in the presence of Civilian Technician and nurse. CONDITION: Stable SCRIBED BY: JANAK MORENO Rn Field scribed while in presence of service performed by Dr. Dominguez/Deisy Walters APRN on 12/08/17 ([id number])
[2017-12-08] MEDS: ROCEPHIN 1 GM in SODIUM CHLORIDE 50 ML IV SCH (09:56)
[2017-12-08] MEDS: TAMIFLU PO SCH (09:57)
[2017-12-08] MEDS: OMEGA-3 FISH OIL PO SCH (09:57)
[2017-12-08] MEDS: VILANTEROL IH SCH (09:58)
[2017-12-08] MEDS: FLUTICASONE IH SCH (09:58)
--- NOTE | 2017-12-08 10:18 | PN ---
DATE OF SERVICE: 12/05/17 SUBJECTIVE: 67 year old white female hospitalized with cough, congestion and flu type of symptoms with dehydration. The patient was seen and examined with the Nurse Practitioner. PLAN: 1. Continued on steroids, NEBS treatments and antibiotics 2. Counseling for smoking done. CONDITION: Improving TIME SPENT: More than 30 minutes. Plan and coordination of the patient's care discussed in the presence of nurse. LILA
[2017-12-08 10:37] VITALS: BP 164/73; TEMP 20
--- NOTE | 2017-12-08 11:26 | DI ---
EXAM: CHEST FRONTAL AND LATERAL VIEWS HISTORY: Dyspnea. COMPARISON: 12/02/2017 FINDINGS: Heart size upper limit normal, stable. There is at least mild aortic atherosclerosis. Ch ronic-appearing interstitial changes with mild hyperinflation. Small to moderate para esophageal audi ia. No acute infiltrates are seen. No vascular congestion. There is no consolidation, visible pleur al fluid or pneumothorax. Bones reveal no acute fracture. IMPRESSION: No acute cardiopulmonary process.
--- NOTE | 2017-12-08 11:57 | PN ---
DATE OF SERVICE: 12/02/17 SUBJECTIVE: 67-year-old white female came to the emergency room because she hasn't been feeling good for two weeks. It is very likely that the patient had influenza but she has stayed home. She has been running low grade fever off and on and has been weak, tired and fatigued. Appetite has been poor. In the emergency room the temperature was 100.1 otherwise CVS/Respiratory systems were negative. Oxygen saturation 94% on room air. Skin turgor below normal. ASSESSMENT: 1. ACUTE BRONCHITIS/DEHYDRATION/FLU TYPE OF SYMPTOMS OF LONG DURATION WITH FEVER PLAN: 1. Give IV fluids 2. Steroids 3. Nebs treatment 4. Antibiotics CONDITION: Stable TIME SPENT: More than 30 minutes. Plan and coordination of the patient's care discussed in the presence of nurse. LILA
[2017-12-08] MEDS ORDERED: K-DUR PO SCH (12:00)
--- NOTE | 2017-12-08 13:27 | PN ---
DATE OF SERVICE: 12/06/17 SUBJECTIVE: 67 year old white female hospitalized with dehydration, weakness, cough and congestion flu type of symptoms. The patient's condition has steadily improved. She says that she is feeling a lot better and coughing much less. Has been resting. Temperature was 100 this morning. REVIEW OF SYSTEMS: CONSTITUTIONAL: No night sweats. Fatigue . Fever. Weakness. HEENT: Eyes: No visual changes. No eye pain. No eye discharge. ENT: No runny nose. No epistaxis. No sinus pain. No sore throat. No odynophagia. No congestion. RESPIRATORY: Mild cough, no congestion. No hemoptysis. No shortness of breath. CARDIOVASCULAR: No angina symptoms. No CHF symptoms. No atypical chest pain for CAD. No palpitations. No orthopnea. GASTROINTESTINAL: No abdominal pain. No nausea or vomiting. No diarrhea or constipation. No hematemesis. No hematochezia. Appetite has improved. GENITOURINARY: No urgency. No frequency. No dysuria. No hematuria. No obstructive symptoms. No discharge. No pain. No significant abnormal bleeding. MUSCULOSKELETAL: No musculoskeletal pain; no joint swelling. NEUROLOGICAL: No headache. No neck pain. No syncope. No seizures. No dizziness. PSYCHIATRIC: Not anxious. No depression. No suicidal thoughts. No homicidal thoughts. SKIN: No rash. No lesions. No wounds. ENDOCRINE: No unexplained weight loss. No weight gain. HEMATOLOGIC/LYMPHATIC: No anemia. No purpura. No petechiae. No prolonged or excessive bleeding. No palpable lymph nodes. PHYSICAL EXAMINATION: GENERAL: The patient is oriented to time, place and person. VITAL SIGNS: Temperature 100, pulse 84, respiratory rate 20, blood pressure 150 /80 and pulse ox 92%. HEENT: Head normocephalic, atraumatic. Eyes: Extraocular muscles are intact. Pupils are equal, round and reactive to light and accommodation. Ears: No lesions. Nose appeared normal. Throat: No exudate or erythema. NECK: Supple. No JVD, no carotid bruit. No lymphadenopathy or thyromegaly. LUNGS: Decreased breath sounds but clear to auscultation. Percussion note normal. Chest symmetrical. HEART: S1, S2, no S3. No murmurs. No cyanosis or clubbing. No ascites. Pulses: Dorsalis pedis and posterior tibial pulses +1 to +2 both sides. ABDOMEN: Soft. Nontender. Bowel sounds active. No CVA tenderness. No mass felt. EXTREMITIES: No edema. Full range of motion of all extremities, equal. NEUROLOGIC: No focal deficit. Cranial nerves II through XII are grossly intact. No headache, no double vision or headache. SKIN: Not dry. Intact. Turgor - normal. LYMPHATIC: No palpable lymph nodes/no lymphedema. MUSCULOSKELETAL: Normal joints with no swelling. Muscle tone is normal. LABS: hgb 13.0, hct 40, WBC 13,000 normal differential. The patient was seen and examined with Nurse Practitioner. CONDITION: Improving. TIME SPENT: More than 30 minutes. Plan and coordination of the patient's care discussed in the presence of nurse. LILA
[2017-12-08] MEDS ORDERED: TAMIFLU PO STA (14:04)
[2017-12-08] MEDS: TUSSIONEX PO SCH (14:06)
--- NOTE | 2017-12-08 15:30 | CM.DICTOOL ---
ADMISSION: 12/02/17 18:43 DISCHARGE: 12/08/17 DATE OF SERVICE: 12/08/17 FINAL DIAGNOSIS INFLUENZA A ACUTE BRONCHITIS SEVERE COPD HYPOXEMIA DEHYDRATION WEAKNESS HYPERTENSION HYPOTHYROIDISM DYSLIPIDEMIA GENERALIZED OSTEOARTHRITIS OBESITY (BMI 34.4) RESTLESS LEG SYNDROME CURRENT EVERY DAY SMOKER LAST VITALS Temp Pulse Resp BP Pulse Ox 20 F L 66 20 164/73 H 98 12/08/17 10:37 12/08/17 10:37 12/08/17 10:37 12/08/17 10:37 12/08/17 10:37 ACTIVE HOME MEDICATIONS Albuterol Sulfate 0.083% Neb 1 vial NEB RTQ8 PRN Last Admin: 12/08/17 10:23 Dose: 1 vial Albuterol Sulfate (Proventil Hfa) 6.7 g, OJ Q 4-6H PRN Alprazolam (Xanax) 0.5 mg PO BEDTIME [facility] Last Admin: 12/07/17 22:05 Dose: 0.5 mg Aspirin (Aspirin Chewable) 81 mg PO BEDTIME [facility] Last Admin: 12/07/17 22:04 Dose: 81 mg Calcium/Vitamin D (Calcium 500 + Vit D 200 Mg Tablet) 2 each PO BEDTIME [facility] Last Admin: 12/07/17 22:04 Dose: 2 each Clopidogrel Bisulfate (Plavix) 75 mg PO BEDTIME [facility] Last Admin: 12/07/17 22:04 Dose: 75 mg Fish Oil ([place]-3 Fish Oil) 1,000 mg PO DAILY [facility] Last Admin: 12/08/17 09:57 Dose: 1,000 mg Levothyroxine Sodium (Synthroid) 25 mcg PO QDAC [facility] Last Admin: 12/08/17 05:35 Dose: 25 mcg Metoprolol Succinate (Toprol Xl) 25 mg PO BEDTIME [facility] Last Admin: 12/07/17 22:05 Dose: 25 mg Nitroglycerin (Nitrostat) 0.4 mg SL Q5MIN X 3 DOSES PRN PRN Reason: Chest Pain Fluticasone/Vilanterol [Breo Ellipta 200-25 Mcg Inh] 1 each IH DAILY [facility] Last Admin: 12/08/17 09:58 Dose: 1 each Oxycodone/Acetaminophen (Percocet 10-325) 1 tab PO Q8HR [facility] Last Admin: 12/08/17 05:36 Dose: 1 tab Pantoprazole Sodium (Protonix) 40 mg PO QDAC [facility] Last Admin: 12/08/17 05:35 Dose: 40 mg Ropinirole HCl (Requip) 0.5 mg PO BEDTIME [facility] Last Admin: 12/07/17 22:03 Dose: 0.5 mg Rosuvastatin Calcium (Crestor) 10 mg PO BEDTIME [facility] Last Admin: 12/07/17 22:04 Dose: 10 mg Tizanidine HCl (Zanaflex) 4 mg PO Q8HR [facility] Last Admin: 12/08/17 05:35 Dose: 4 mg ALLERGIES No Known Allergies Allergy (Verified 12/02/17 17:12) NEW PRESCRIPTIONS: KEFLEX 500 MG, TAKE ONE CAPSULE BY MOUTH THREE TIMES DAILY FOR 7 DAYS K-DUR 20 MEQ, TAKE ONE TABLET BY MOUTH DAILY FOR 7 DAYS PREDNISONE 10 MG, TAKE 2 TABLETS (20 MG) BY MOUTH TWICE DAILY WITH FOOD FOR 2 DAYS, THEN TAKE ONE TABLET (10 MG) BY MOUTH TWICE DAILY WITH FOOD FOR 5 DAYS, THEN STOP SMOKING: CURRENT EVERY DAY SMOKER THE PATIENT HAS RECEIVED INFORMATION/TEACHING REGARDING THE BENEFITS OF COMPLETE SMOKING CESSATION. SHE IS AWARE OF THE ADDED RISK TO HER CARDIOPULMONARY/VASCULAR HEALTH. SHE HAS NOT VERBALIZED HER INTENT TO STOP SMOKING AND WOULD BENEFIT FROM FURTHER INSTRUCTION AND ENCOURAGEMENT IN THE OUTPATIENT SETTING FOR COMPLETE CESSATION. DISEASE SPECIFIC EDUCATION: COPD BRONCHITIS INFLUENZA A AND PREVENTION OF SPREAD HOME MEDICATIONS RISK FACTORS FOR DETENTION STEROID USE NEW PRESCRIPTIONS FOLLOW UP LAB REVIEW: 12/08/17 05:25 12/08/17 05:25 12/08/17 05:25: Sodium 139, Potassium 3.4 L, Chloride 101, Carbon Dioxide 24, Anion Gap 17.4, BUN 22 H, Creatinine 0.80, Estimated GFR (MDRD) 72.00, BUN/ Creatinine Ratio 27.50, Glucose 211 H, Calcium 9.7, Total Bilirubin 0.3, AST 20 , ALT 18, Alkaline Phosphatase 47 L, Total Protein 6.0, Albumin 3.5, Globulin 2.5, Albumin/Globulin Ratio 1.40 12/08/17 05:25: WBC 6.08, RBC 3.94 L, Hgb 11.7 L, Hct 35.1 L, MCV 89.1, MCH 29.7 , MCHC 33.3, RDW Coeff of Melody 12.5, Plt Count 116 L, Immature Gran % (Auto) 1.3 , Neut % (Auto) 79.7, Lymph % (Auto) 15.0, Toombs % (Auto) 3.8, Eos % (Auto) 0.0, Baso % (Auto) 0.2, Immature Gran # (Auto) 0.1, Neut # 4.9, Lymph # 0.9, Toombs # 0.2 L, Eos # 0.0, Baso # 0.0 PLAN: DISCHARGE HOME TODAY RETURN TO SEE DR. DOMINGUEZ IN THE OFFICE ON 12/13/17 AT 2:45 P.M. TAYE ([phone]) OF [place], [place] WILL PHONE YOU TOMORROW TO ARRANGE A TIME TO SWITCH OUT YOUR PORTABLE TANK OXYGEN FOR A SMALLER SYSTEM RESUME YOUR HOME MEDICATIONS PER LIST PROVIDED BY THE NURSING STAFF NEW PRESCRIPTIONS KEFLEX 500 MG, TAKE ONE CAPSULE BY MOUTH THREE TIMES DAILY FOR 7 DAYS K-DUR 20 MEQ, TAKE ONE TABLET BY MOUTH DAILY FOR 7 DAYS PREDNISONE 10 MG, TAKE 2 TABLETS (20 MG) BY MOUTH TWICE DAILY WITH FOOD FOR 2 DAYS, THEN TAKE ONE TABLET (10 MG) BY MOUTH TWICE DAILY WITH FOOD FOR 5 DAYS, THEN STOP ACTIVITY GET PLENTY OF REST AT HOME. GRADUALLY INCREASE YOUR ACTIVITY LEVEL ACCORDING TO YOUR TOLERATION DIET HEALTHY HEART SUMMARY THE PATIENT IS ALERT AND ORIENTED X3. SHE CURRENTLY RESIDES AT HOME WITH HER SPOUSE, DAUGHTER AND GRANDCHILD. SHE HAS BEEN INDEPENDENT WITH ADL'S. SHE DESIRES TO RETURN HOME AT DISCHARGE. SHE HAS HOME OXYGEN AND A C-PAP FOR USE NOW FROM [facility]. SHE WOULD LIKE FOR HER PORTABLE SYSTEM TO BE MORE COMPACT ALLOWING HER TO BE MOBILE MORE FREELY. SHE SAYS THE PORTABLE OXYGEN CYLINDER IS CUMBERSOME AND PREVENTS HER FROM BEING ACTIVE. CASE MANAGEMENT HAS MADE ARRANGEMENTS WITH [facility] TO EXCHANGE HER PORTABLE SYSTEM FOR A SMALLER SYSTEM. THEY WILL PHONE THE PATIENT AT HOME TOMORROW TO SCHEDULE THE EXCHANGE. THE SKIN TURGOR IS INTACT AND WITHOUT DECUBITUS ULCERS. HYDRATION AND NUTRITIONAL STATUS ARE GOOD. MS. HUANG IS AFEBRILE. SHE HAS COMPLETED A COURSE OF TAMIFLU FOR HER INFLUENZA A. SHE IS FEELING MUCH BETTER AND IS AWARE AND AGREEABLE FOR DISCHARGE HOME TODAY. CURRENT CODE STATUS DO NOT INTUBATE, CPR ONLY OSITO BRADEN, APR SIA DOMINGUEZ M.D.
--- NOTE | 2017-12-12 14:30 | PN ---
DATE OF SERVICE: 12/08/17 SUBJECTIVE: 67 year old white female hospitalized with bronchitis and dehydration. The patient condition has steadily improved. She has been coughing less. PHYSICAL EXAMINATION: VITALS: Oxygen saturation 92% on room air, systolic blood pressure 167. HEENT: Head normocephalic, atraumatic. Eyes: Extraocular muscles are intact. Pupils are equal, round and reactive to light and accommodation. Ears: No lesions. Nose appeared normal. Throat: No exudate or erythema. NECK: Supple. No JVD, no carotid bruit. No lymphadenopathy or thyromegaly. LUNGS: Decreased breath sounds but clear to auscultation. Percussion note normal. Chest symmetrical. HEART: S1, S2, no S3. No murmurs. No cyanosis or clubbing. No ascites. Pulses: Dorsalis pedis and posterior tibial pulses +1 to +2 both sides. ABDOMEN: Soft. Nontender. Bowel sounds active. No CVA tenderness. No mass felt. EXTREMITIES: No edema. Full range of motion of all extremities, equal. NEUROLOGIC: No focal deficit. Cranial nerves II through XII are grossly intact. No headache, no double vision or headache. SKIN: Not dry. Intact. Turgor - normal. LYMPHATIC: No palpable lymph nodes/no lymphedema. MUSCULOSKELETAL: Normal joints with no swelling. Muscle tone is normal. PLAN: 1. Counseling for smoking done 2. DASH diet discussed. 3. The patient is going to be discharged on Keflex, Prednisone and Tamiflu. The patient was seen and examined with the Nurse Practitioner. CONDITION: Stable at the time of discharge. TIME SPENT: More than 30 minutes. Plan and coordination of the patient's care discussed in the presence of nurse. LILA
--- NOTE | 2017-12-12 14:31 | PN ---
12/02/17: Level 5 12/03/17: Intermediate 12/04/17: Intermediate 12/05/17: Intermediate 12/06/17: Brief 12/07/17: Brief 12/08/17: D as in discharge MTDD
--- NOTE | 2017-12-28 13:42 | DS ---
DATE OF SERVICE: 12/08/17 FINAL DIAGNOSIS: 1. INFLUENZA A 2. ACUTE BRONCHITIS 3. SEVERE CHRONIC OBSTRUCTIVE PULMONARY DISEASE 4. HYPOXEMIA 5. DEHYDRATION 6. WEAKNESS 7. HYPERTENSION 8. HYPOTHYROIDISM 9. DYSLIPIDEMIA 10. GENERALIZED OSTEOARTHRITIS 11. OBESITY, BMI 34.4 12. RESTLESS LEG SYNDROME 13. CURRENT EVERYDAY SMOKER VITAL SIGNS AT DISCHARGE: Pulse 66, respiratory rate 20, blood pressure 164/73 and pulse oximetry 98%. HOME MEDICATIONS: Albuterol 0.083% nebulizer every 8 hours prn Proventil HFA every 4-6 hours prn Xanax 0.5 mg at bedtime Aspirin 81 mg at bedtime Plavix 75 mg at bedtime [place] fish oil 1,000 mg Synthroid 25 mEq daily Toprol XL 25 mg at bedtime Nitrostat 0.4 mg SL every 5 minutes times 3 prn Breo/Ellipta 200/25 mcg INH daily Percocet 10/325 mg every 8 hours Protonix 40 mg daily Requip 0.5 mg at bedtime Crestor 10 mg at bedtime Zanaflex 4 mg every 8 hour ALLERGIES: No known drug allergies. NEW PRESCRIPTIONS: Keflex 500 mg three times daily for 7 days K-Dur 20 mEq daily for 7 days Prednisone 10 mg, 2 tablets twice daily with food for 2 days and then one 10 mg tablet twice daily with food for 5 days and then stop. SMOKING: Current everyday smoker. The patient received information/teaching regarding the benefits of complete smoking cessation. She is aware of the added risk to her cardiopulmonary/vascular health. She has not verbalized her intent to stop smoking and would benefit from further instruction and encouragement in the outpatient setting for complete cessation. 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 LABS: Potassium 3.4, BUN 22, creatinine 0.80, glucose 211, WBC 6.68, hemoglobin 11.7, hematocrit 35.1, platelet count 116. PLAN: 1. Discharge the patient to home. 2. Return to see Dr. Murry in his office on 12/13/17 at 2:45. 3. Hafsa, , of [place], [place] will phone you tomorrow to arrange a time to switch out your portable tank oxygen for a smaller system. 4. Resume home medications as per the list provided by the nursing staff. NEW PRESCRIPTIONS: 1. Keflex 500 mg three times daily for 7 days. 2. K-Dur 20 mEq daily for 7 days. 3. Prednisone 10 mg, 2 tabs daily with food for 2 days, then 1 10 mg tab twice daily with food for 5 days and then stop. 4. Activity: Get plenty of rest at home. Gradually increase your activity level according to your tolerance. 5. Diet: Healthy heart. HOSPITAL COURSE: This is a 67-year-old female, who was brought to the emergency room complaining of cough, congestion, fever, extreme weakness and shortness of breath. Chest x- ray revealed change associated with COPD. Her ABGs were abnormal with initial 02 sat of 87%. She was admitted, placed on IV steroids which we increased to 125 mg of Solu-Medrol q.8hr IV. We swabbed her for flu and she was positive for flu A. She was started on Rocephin 1 gm IV daily along with Tamiflu 75 mg p.o. b.i.d. She was given Tussionex 5 mg p.o. b.i.d. as needed for cough and started on Xopenex neb treatments. She ran a fever for the first three days after admission of up to 101. Her blood pressure was low and kidney function was elevated on admission. She was placed on IV fluids of D5 1/2 NS at 75 cc/hr. Her kidney function is almost normal today on day of discharge. BUN 22, creatinine 0.87. For the past 24 hours she has been up and about walking around with minimal shortness of breath. She does have severe COPD and is a heavy smoker. She currently still smokes. She has oxygen at home that she wears as needed. She will continue to wear this at home as needed. She has been eating and drinking well and again have enough energy to walk around. She has been afebrile for the past 48 to 72 hours now. We will send her home on Keflex 500 mg t.i.d for the next 7 days, Prednisone 20 mg b.i.d. times two days and 10 mg b.i.d. times 5 days. She has finished four days of Tamiflu here. She will not go home on Tamiflu. Repeat chest x-ray was done today which showed improvement, no acute process, no pneumonia. Her vital signs have been stable. Temperature 97.8, heart rate 66, respirations 20, BP 160/73, pulse ox 98% on 2L. Information regarding smoking sensation was given to her and she was instructed to quit smoking. Her potassium was slightly low today at 3.4. Will give her 20 mEq of K-Dur to take once daily for the next week and we will recheck a CMP when we see her in the office next week. She is instructed to continue with increased rest and increased fluids at home. All of her home medications have stayed the same. We will follow up with her closely. TIME SPENT: More than 60 minutes. LILA
== END 2017-12-08 15:30 | disposition home or self-care (01) | DRG 192 ==
LOC: ED 17:02 → MEDSURG B 18:43 → UNDOADMIN 18:43
PROVIDERS: ADMIT Internal Medicine; ATTEND Internal Medicine
DX: J44.0 Chronic obstructive pulmonary disease with (acute) lower respiratory infection (principal); J10.1 Influenza due to other identified influenza virus with other respiratory manifestations; R09.02 Hypoxemia; E86.0 Dehydration; R53.1 Weakness; I10 Essential (primary) hypertension; E03.9 Hypothyroidism, unspecified; E78.5 Hyperlipidemia, unspecified; M15.9 Polyosteoarthritis, unspecified; E66.9 Obesity, unspecified; Z68.34 Body mass index [BMI] 34.0-34.9, adult; G25.81 Restless legs syndrome; Z72.0 Tobacco use
CPT/HCPCS: 36415; 80053; 81001; 82803; 82962; 85007; 85025; 87502; 94640; 99223; 99231; 99232; 99239; 99284

== ENCOUNTER 2018-01-26 15:07 | Outpatient (CLI) ==
--- NOTE | 2018-01-26 15:39 | DI ---
EXAM: CHEST FRONTAL AND LATERAL VIEWS HISTORY: Hypoxia. COMPARISON: 12/08/2017 FINDINGS: Prominent heart size is stable. Moderate sized hiatal hernia is again noted. Atheroscler otic disease with ectasia of the thoracic aorta. Chronic-appearing lung changes diffusely. It would be difficult to exclude small areas of pneumonia in the bases. No vascular congestion, pleural flui d or pneumothorax. Severe arthropathy of the right shoulder is redemonstrated. IMPRESSION: Cannot exclude mild patchy pneumonia in the bases. Hiatal hernia. Atherosclerotic disea se and prominent heart size.
== END 2018-01-26 15:08 | disposition home or self-care (01) ==
LOC: RAD 15:07
PROVIDERS: ATTEND Internal Medicine Pulmonary Disease
DX: J96.01 Acute respiratory failure with hypoxia (principal); G47.30 Sleep apnea, unspecified

== ENCOUNTER 2018-11-22 15:46 | Outpatient (CLI) ==
--- NOTE | 2018-11-23 08:22 | DI ---
EXAM: CHEST FRONTAL AND LATERAL VIEWS HISTORY: Cough. COMPARISON: 01/26/2018 FINDINGS: Heart size is within normal limits. There is at least mild atherosclerotic disease. Mode rate hiatal hernia is again noted. Mild hyperinflation. No acute infiltrates are seen. No vascular congestion. There is no consolidation, visible pleural fluid or pneumothorax. Bones reveal no acut e fracture. IMPRESSION: Hiatal hernia. No acute cardiopulmonary process.
== END 2018-11-22 15:47 | disposition home or self-care (01) ==
LOC: RAD 15:46
PROVIDERS: ATTEND Internal Medicine
DX: R05 Cough (principal)

== ENCOUNTER 2019-04-06 09:47 | Outpatient (CLI) ==
[2019-04-06 14:23] VITALS: BP 132/76; TEMP 98.2
[2019-04-06] MEDS: RECLAST 5 MG/100 ML SOLUTION 5 MG in PREMIX INFUSION 100 ML VIAL 1 VIAL IV ONE (14:40)
== END 2019-04-06 09:48 | disposition home or self-care (01) ==
LOC: OPMED 09:47
PROVIDERS: ATTEND Internal Medicine
DX: M81.0 Age-related osteoporosis without current pathological fracture (principal)
CPT/HCPCS: 36415; 82310; 82565; 96365

== ENCOUNTER 2021-02-06 15:23 | Inpatient (IN) ==
--- NOTE | 2021-02-06 16:29 | ED.PDOC ---
General ED Provider: Dr. BURT BARGER Chief Complaint: Shortness of Air Stated Complaint: Cough and congestion, shortness of breath. Fighting off cold all winter and now has persistent cough. Rt sided chest wall pain from previous rib fracture from coughing. Use respiratory inhaler at home. Time Seen by Provider: 02/06/21 16:00 Mode of Arrival: Walk-In Information Source: Patient Exam Limitations: No limitations Primary Care Provider: SIA MURRY Nursing and Triage Documentation Reviewed and Agree: Yes Does patient meet sepsis criteria?: No System Inflammatory Response Syndrome: Not Applicable Sepsis Protocol: For patient's 13 years and over: Temp is 96.8 and below OR 101 and greater Pulse >90 BPM Resp >20/minute Acutely Altered Mental Status Are patient's symptoms suggestive of a new infection, such as: -Pneumonia -Skin, Soft Tissue -Endocarditis -UTI -Bone, Joint Infection -Implantable Device -Acute Abdominal Infection -Wound Infection -Meningitis -Blood Stream Catheter Infection -Unknown Respiratory Complaint Exam Respiratory Complaint/Exam Onset/Duration: Several days Symptoms Are: Still present Timing: Intermittent Initial Severity: Moderate Current Severity: Moderate Location: Chest Character: Reports Productive cough (yellowish phlegm) Aggravating: Reports Passive smoke exposure and Recumbent position Alleviating: Reports Bronchodilators and Upright position Associated Signs and Symptoms: Reports Pleuritic chest pain and Wheezing; Denies Rapid breathing, Dyspnea, Fever, Chills, Chest pain, Hemoptysis, Dizziness, Calf pain, Calf swelling, Edema, URI, Nasal congestion, Hoarseness, Sinus discomfort, Vomiting, Sore throat, Weight loss, Decreased oral intake, Increased thirst, Increased appetite and Increased urination Related History: Reports Similar episode History of Healthcare-Acquired Pneumonia: No Related Surgical History: Reports None Pulmonary Embolism Risk Factors: None Cardiac Risk Factors: Reports None Pseudomonas Risk Factors: Reports None Tuberculosis Risk Factors: Reports None and Smoking Status Asthmaticus Risk Factors: Reports None Home Oxygen Use: No Recent Stress Test: No Recent Echo/LV Function: Yes Current Antibiotic Use: No Current Asthma Medication Use: Yes Respiratory Distress: None Inadequate Respiratory Effort: Yes Dysphagia Present: No Stridor Present: No JVD Present: No Accessory Muscle Use: No Retractions: Not Present Diminished Breath Sounds: Yes Sinus Tenderness: None Grunting Respirations: No Kussmaul Respirations: No Differential Diagnoses: COPD Exacerbation, Pneumonia, Bronchospasm and URI Review of Systems Review Of Systems Constitutional: Reports Chills Eyes: Reports No symptoms Ears, Nose, Mouth, Throat: Reports No symptoms Respiratory: Reports Cough and Wheezing Cardiac: Reports No symptoms GI: Reports No symptoms : Reports No symptoms Musculoskeletal: Reports No symptoms Skin: Reports No symptoms Neurological: Reports No symptoms Endocrine: Reports No symptoms Hematologic/Lymphatic: Reports No symptoms All Other Systems: Reviewed and Negative [facility] Medical History (Updated 02/09/21 @ 08:06 by JANAK MORENO) COPD (chronic obstructive pulmonary disease) Hypothyroid Pneumonia Pneumonia Family History (Updated 02/06/21 @ 22:03 by ISIDRA FELTON LPN) FATHER Diabetes SISTER Emphysema of lung Cervical cancer BROTHER Emphysema of lung SISTER COPD (chronic obstructive pulmonary disease) BROTHER COPD (chronic obstructive pulmonary disease) Social History (Updated 02/06/21 @ 22:08 by ISIDRA FELTON LPN) Smoking and tobacco status: Current every day smoker Tobacco type: cigarettes Smoking packs per day: 0.75 Smoking cigarettes per day: 15.0 Years smoked: 55 Smoking pack-years: 41.25 Tobacco: How many years used: 55 Quit status: considering quitting Second hand smoke exposure: No Smoking risk assessment performed: No Alcohol intake: never Substance use type: does not use Adopted: No Caregiver/support person: Yes Foster care: No Household members: spouse Housing: house Marital status: M Number of children: 3 Number of grandchildren: 5 History of recent travel: No Current gender identity: female Current diet type/program: regular What type of physical activity do you participate in?: walking Surgical History (Updated 02/09/21 @ 08:06 by JANAK MORENO) History of heart artery stent History of hysterectomy Female Reproductive History Menstrual Hx Hysterectomy: Yes Hx Tubal Ligation: No Physical Exam Physical Exam Appearance: Reports Ill-appearing and Obese Ill-appearing: Mild Pain Distress: Mild Eyes: Reports SUNDEEP, EOMI and Conjunctiva clear ENT: Reports Ears normal, Oropharynx normal, TMs Occluded and Rhinorrhea Neck: Supple Respiratory: Reports Breath sounds equal, Respirations nonlabored and Wheezes Cardiovascular: Reports RRR, Pulses normal, No rub, No murmur and Abnormal pulses GI/: Reports Soft, Nontender, No masses, Bowel sounds normal and No Organomegaly Musculoskeletal: Reports Normal strength, ROM intact, No edema and No calf tenderness Skin: Reports Warm, Dry and Normal color Neurological: Reports Sensation intact, Motor intact, Reflexes intact, Cranial nerves intact, Alert and Oriented Psychiatric: Reports Affect appropriate and Mood appropriate Interpretation Radiology Interpretation Exam Interpreted: CT Scan and Other (The hazy ground-glass opacity on prior study correlates with consolidation in the posterior right lower lobe in contact the pleura. This is concerning for pneumonia. The central lucencies in the consolidation. Correlate with areas of emphysema seen on prior study. 2. Scattered emphysema with mil) Xray Comments: The hazy ground-glass opacity on prior study correlates with consolidation Physician Notification Case Discussed Physician Notified: Dr Murry-admit patient Time of Notification: 18:20 Critical Care Note Critical Care Note Total Critical Care Time (mins): 30 Course Course Hematology/Chemistry: 02/10/21 04:55 02/10/21 04:55 Orders, Labs, Meds: Lab Review 02/06/21 02/06/21 02/06/21 16:40 16:40 16:48 WBC 12.18 H RBC 4.55 Hgb 14.2 Hct 41.3 MCV 90.8 MCH 31.2 H MCHC 34.4 RDW Coeff of Melody 14.6 Plt Count 171 Immature Gran % (Auto) 0.2 Neut % (Auto) 73.1 Lymph % (Auto) 16.0 [place] % (Auto) 8.1 Eos % (Auto) 2.1 Baso % (Auto) 0.5 Neut # (Auto) 8.9 H Lymph # (Auto) 2.0 [place] # (Auto) 1.0 Eos # (Auto) 0.3 Baso # (Auto) 0.1 Immature Gran # (Auto) 0.0 Puncture Site Lb Base Excess 4.1 H O2 Saturation 93.9 L ABG pH 7.48 H ABG pCO2 37.0 ABG pO2 65.0 L ABG HCO3 27.6 ABG Total CO2 28.7 H Hugo Test Y Hemoglobin 1.1 Oxyhemoglobin 84.9 L Carboxyhemoglobin 11.2 H Total Hemoglobin 14.7 FiO2 % 21.0 Sodium Potassium Chloride Carbon Dioxide Anion Gap BUN Creatinine Estimated GFR (MDRD) BUN/Creatinine Ratio Glucose Calcium Total Bilirubin AST ALT Alkaline Phosphatase Troponin I < 0.012 Total Protein Albumin Globulin Albumin/Globulin Ratio Urine Color Urine Clarity Urine pH Ur Specific [place] Urine Protein Urine Glucose (UA) Urine Ketones Urine Blood Urine Nitrite Urine Bilirubin Urine Urobilinogen Ur Leukocyte Esterase Adenovirus (PCR) B. pertussis DNA (PCR) B.parapertussis DNA PCR C. pneumoniae DNA (PCR) Coronavirus OC43 (PCR) Coronavirus HKU1 (PCR) Coronavirus 229E (PCR) Coronavirus NL63 (PCR) Hepatitis A IgM Ab Hep Bs Antigen Hep B Core IgM Ab Hep C Ab Signal/Cutoff Human Metapneumovir PCR Influenza Type A (PCR) Influ A Molecular Assay Influenza B (RT-PCR) Influ B Molecular Assay M. pneumoniae (PCR) Parainfluenza 1 (PCR) Parainfluenza 2 (PCR) Parainfluenza 3 (PCR) Parainfluenza 4 (PCR) RSV (PCR) Entero/Rhino (PCR) SARS-CoV-2 (PCR) 02/06/21 02/06/21 02/06/21 16:48 16:48 16:51 WBC RBC Hgb Hct MCV MCH MCHC RDW Coeff of Melody Plt Count Immature Gran % (Auto) Neut % (Auto) Lymph % (Auto) [place] % (Auto) Eos % (Auto) Baso % (Auto) Neut # (Auto) Lymph # (Auto) [place] # (Auto) Eos # (Auto) Baso # (Auto) Immature Gran # (Auto) Puncture Site Base Excess O2 Saturation ABG pH ABG pCO2 ABG pO2 ABG HCO3 ABG Total CO2 Hugo Test Hemoglobin Oxyhemoglobin Carboxyhemoglobin Total Hemoglobin FiO2 % Sodium 137.5 Potassium 4.34 Chloride 103.4 Carbon Dioxide 27.8 Anion Gap 10.64 BUN 15.6 Creatinine 0.90 Estimated GFR (MDRD) 62.00 BUN/Creatinine Ratio 17.33 Glucose 105.4 Calcium 10.43 H Total Bilirubin 0.54 AST 22.7 ALT 7.8 Alkaline Phosphatase 44.4 L Troponin I Total Protein 7.53 Albumin 4.26 Globulin 3.27 Albumin/Globulin Ratio 1.30 Urine Color Urine Clarity Urine pH Ur Specific [place] Urine Protein Urine Glucose (UA) Urine Ketones Urine Blood Urine Nitrite Urine Bilirubin Urine Urobilinogen Ur Leukocyte Esterase Adenovirus (PCR) B. pertussis DNA (PCR) B.parapertussis DNA PCR C. pneumoniae DNA (PCR) Coronavirus OC43 (PCR) Coronavirus HKU1 (PCR) Coronavirus 229E (PCR) Coronavirus NL63 (PCR) Hepatitis A IgM Ab Negative Hep Bs Antigen Negative Hep B Core IgM Ab Negative Hep C Ab Signal/Cutoff < 0.1 Human Metapneumovir PCR Influenza Type A (PCR) Influ A Molecular Assay Negative by naat Influenza B (RT-PCR) Influ B Molecular Assay Negative by naat M. pneumoniae (PCR) Parainfluenza 1 (PCR) Parainfluenza 2 (PCR) Parainfluenza 3 (PCR) Parainfluenza 4 (PCR) RSV (PCR) Entero/Rhino (PCR) SARS-CoV-2 (PCR) 02/06/21 02/06/21 18:12 18:40 WBC RBC Hgb Hct MCV MCH MCHC RDW Coeff of Melody Plt Count Immature Gran % (Auto) Neut % (Auto) Lymph % (Auto) [place] % (Auto) Eos % (Auto) Baso % (Auto) Neut # (Auto) Lymph # (Auto) [place] # (Auto) Eos # (Auto) Baso # (Auto) Immature Gran # (Auto) Puncture Site Base Excess O2 Saturation ABG pH ABG pCO2 ABG pO2 ABG HCO3 ABG Total CO2 Hugo Test Hemoglobin Oxyhemoglobin Carboxyhemoglobin Total Hemoglobin FiO2 % Sodium Potassium Chloride Carbon Dioxide Anion Gap BUN Creatinine Estimated GFR (MDRD) BUN/Creatinine Ratio Glucose Calcium Total Bilirubin AST ALT Alkaline Phosphatase Troponin I Total Protein Albumin Globulin Albumin/Globulin Ratio Urine Color Yellow Urine Clarity Clear Urine pH 7.0 Ur Specific [place] 1.015 Urine Protein Negative Urine Glucose (UA) Negative Urine Ketones Negative Urine Blood Negative Urine Nitrite Negative Urine Bilirubin Negative Urine Urobilinogen 0.2 Ur Leukocyte Esterase Negative Adenovirus (PCR) Not detected B. pertussis DNA (PCR) Not detected B.parapertussis DNA PCR Not detected C. pneumoniae DNA (PCR) Not detected Coronavirus OC43 (PCR) Not detected Coronavirus HKU1 (PCR) Not detected Coronavirus 229E (PCR) Not detected Coronavirus NL63 (PCR) Not detected Hepatitis A IgM Ab Hep Bs Antigen Hep B Core IgM Ab Hep C Ab Signal/Cutoff Human Metapneumovir PCR Not detected Influenza Type A (PCR) Not detected Influ A Molecular Assay Influenza B (RT-PCR) Not detected Influ B Molecular Assay M. pneumoniae (PCR) Not detected Parainfluenza 1 (PCR) Not detected Parainfluenza 2 (PCR) Not detected Parainfluenza 3 (PCR) Not detected Parainfluenza 4 (PCR) Not detected RSV (PCR) Not detected Entero/Rhino (PCR) Not detected SARS-CoV-2 (PCR) Not detected Orders Category Date Time Status ADMIT PATIENT INPATIENT .TO MEDSUR (MONITORED BED) ADMISSION 02/06/21 18:41 Completed ABG DRAW REQUEST Stat CARDIO 02/06/21 16:29 Completed EKG-(ED ONLY) Stat CARDIO 02/06/21 16:29 Completed METERED DOSE INHALATION Routine CARDIO 02/06/21 16:33 Completed OXYGEN Routine CARDIO 02/06/21 18:42 Completed ACTIVITY .BR with BRP CARE 02/06/21 18:43 Completed ACTIVITY .Early Mobilization for VTE Prevention CARE 02/06/21 18:43 Completed BLOOD GLUCOSE MONITORING 0630,1100,1700,2100 CARE 02/06/21 18:44 Completed INTAKE & OUTPUT Q8HR CARE 02/06/21 18:43 Completed INTAKE & OUTPUT Q8HR CARE 02/06/21 18:57 Completed TELEMETRY MONITORING TELE CARE 02/06/21 18:41 Completed VITAL SIGNS Q4HR CARE 02/06/21 18:43 Completed REGULAR DIET DIETARY 02/06/21 Dinner Completed ABG COOX Stat LAB 02/06/21 16:40 Completed CBC W/ AUTO DIFF DAILY@0600 LAB 02/07/21 05:00 Completed CBC W/ AUTO DIFF DAILY@0600 LAB 02/08/21 04:55 Completed CBC W/ AUTO DIFF Stat LAB 02/06/21 16:48 Completed CMP [COMPREHENSIVE METABOLIC PANEL] Stat LAB 02/06/21 16:48 Completed COMPREHENSIVE METABOLIC PANEL DAILY@0600 LAB 02/07/21 05:00 Completed COMPREHENSIVE METABOLIC PANEL DAILY@0600 LAB 02/08/21 04:55 Completed FLU A & B MOLECULAR [FLU A/B MOLECULAR] Stat LAB 02/06/21 16:51 Completed HEPATITIS PANEL, ACUTE Stat LAB 02/06/21 16:48 Completed PT WITH INR DAILY@0600 LAB 02/07/21 05:00 Completed PT WITH INR DAILY@0600 LAB 02/08/21 04:55 Completed RESPIRATORY PANEL 2.1 (PCR) Stat LAB 02/06/21 18:40 Completed TROPONIN I Stat LAB 02/06/21 16:40 Completed UA [URINALYSIS C & S IF INDICATED] Stat LAB 02/06/21 18:12 Completed Acetaminophen [Tylenol] MEDS 02/06/21 18:42 Discontinued 650 mg PO Q4H PRN Albuterol Inhaler(with Spacer) [Ventolin Hfa (Per Puff- MEDS 02/06/21 16:33 Discontinued with Spacer)] 2 puff IH ONCE STA Azithromycin [Zithromax] MEDS 02/06/21 18:35 Discontinued 500 mg PO ONCE STA Ceftriaxone/D5w 1 gm Premix [Rocephin 1 gm/50 ml D5w] MEDS 02/06/21 18:34 Discontinued 1 gm in 50 ml IV ONCE Enoxaparin Sodium [Lovenox] MEDS 02/06/21 19:00 Discontinued 40 mg SUBCUT DAILY Methylprednisolone Sod Succ/Pf [Solu-Medrol 125 mg] MEDS 02/06/21 18:38 Discontinued 125 mg IVP ONCE STA Methylprednisolone Sod Succ/Pf [Solu-Medrol 125 mg] MEDS 02/07/21 00:00 Discontinued 125 mg IVP Q6HR Ondansetron HCl/Pf [Zofran 4 mg/2 ml] MEDS 02/06/21 18:42 Discontinued 4 mg IVP Q6H PRN Sodium Chloride 0.9% [Sodium Chloride] 1,000 ml MEDS 02/06/21 19:00 Discontinued IV DAILY RESUSCITATION STATUS Routine OTHERS 02/06/21 18:42 Completed CHEST, 1V AP ONLY Stat RADS 02/06/21 16:[address] CHEST W/O CONTRAST Stat RADS 02/06/21 17:02 Completed Medications Discontinued Medications Generic Name Dose Route Start Last Admin Trade Name Freq PRN Reason Stop Dose Admin Acetaminophen 650 mg 02/06/21 18:42 Acetaminophen 325 Mg Tablet PO Q4H PRN Fever >101 Albuterol Sulfate 2 puff 02/06/21 16:33 02/06/21 16:58 Albuterol Sulfate (Ventolin Hfa) 18 Gm 1 Puff With Spacer IH 02/06/21 16:34 2 puff ONCE STA Administration Albuterol Sulfate 2 puff 02/06/21 20:00 02/10/21 10:08 Albuterol Sulfate (Ventolin Hfa) 18 Gm 1 Puff With Spacer IH 2 puff RTQID MONE Administration Alprazolam 0.5 mg 02/06/21 22:00 02/09/21 20:39 Alprazolam 0.5 Mg Tablet PO 0.5 mg BEDTIME MONE Administration Amlodipine Besylate 5 mg 02/06/21 22:00 02/09/21 20:39 Amlodipine Besylate 5 Mg Tablet PO 5 mg BEDTIME MONE Administration Aspirin 81 mg 02/06/21 22:00 02/09/21 20:40 Aspirin 81 Mg Tab.Chew PO 81 mg BEDTIME MONE Administration Azithromycin 500 mg 02/06/21 18:35 02/06/21 19:13 Azithromycin 250 Mg Tablet PO 02/06/21 18:36 500 mg ONCE STA Administration Azithromycin 500 mg 02/07/21 21:00 02/09/21 20:40 Azithromycin 250 Mg Tablet PO 02/09/22 20:59 500 mg BEDTIME MONE Administration Calcium/Vitamin D 1 each 02/07/21 09:00 02/10/21 08:50 Calcium Carbonate/Vitamin D3 500 Mg/5 Mcg(200iu) 1 Each Tablet PO 1 each DAILY MONE Administration Citalopram Hydrobromide 20 mg 02/06/21 22:00 02/09/21 20:39 Citalopram Hydrobromide 20 Mg Tablet PO 20 mg BEDTIME MONE Administration Clopidogrel Bisulfate 75 mg 02/06/21 22:00 02/09/21 20:40 Clopidogrel Bisulfate 75 Mg Tablet PO 75 mg BEDTIME MONE Administration Enoxaparin Sodium 40 mg 02/06/21 19:00 02/06/21 23:04 Enoxaparin Sodium 40 Mg/0.4 Ml Syr SUBCUT 40 mg DAILY MONE Administration Enoxaparin Sodium 40 mg 02/07/21 21:00 02/08/21 20:46 Enoxaparin Sodium 40 Mg/0.4 Ml Syr SUBCUT 40 mg BEDTIME MONE Administration Fish Oil 1,000 mg 02/07/21 09:00 02/10/21 08:50 [place]-3/Dha/Epa/Fish Oil 1,000 Mg Capsule PO 1,000 mg DAILY MONE Administration CEFTRIAXONE/D5W 1 GM PREMIX 1 gm in 50 mls @ 75 mls/hr 02/06/21 18:34 02/06/21 19:14 Rocephin 1 Gm/50 Ml D5w IV 02/06/21 19:13 75 mls/hr ONCE STA Administration Sodium Chloride 1,000 mls @ 125 mls/hr 02/06/21 19:00 02/06/21 22:48 Sodium Chloride IV Not Given DAILY MONE CEFTRIAXONE/D5W 1 GM PREMIX 1 gm in 50 mls @ 75 mls/hr 02/07/21 21:00 02/09/21 20:40 Rocephin 1 Gm/50 Ml D5w IV 02/11/21 20:59 75 mls/hr BEDTIME MONE Administration Sodium Chloride 1,000 mls @ 50 mls/hr 02/06/21 22:00 02/09/21 14:10 Sodium Chloride IV 50 mls/hr DAILY MONE Administration Insulin Human Regular 0 unit 02/08/21 11:39 02/09/21 20:41 Insulin Regular, Human 100 Unit/Ml (3ml) Vial SUBCUT 4 unit PRN PRN Administration Hyperglycemia Protocol Levothyroxine Sodium 50 mcg 02/07/21 06:30 02/10/21 05:44 Levothyroxine Sodium 50 Mcg Tablet PO 50 mcg DAILY@0630 MONE Administration Methylprednisolone Sodium Succinate 125 mg 02/06/21 18:38 02/06/21 19:08 Methylprednisolone Sod Succ/Pf 125 Mg/2 Ml Vial IVP 02/06/21 18:39 125 mg ONCE STA Administration Methylprednisolone Sodium Succinate 125 mg 02/07/21 00:00 02/08/21 05:13 Methylprednisolone Sod Succ/Pf 125 Mg/2 Ml Vial IVP 125 mg Q6HR MONE Administration Metoprolol Succinate 25 mg 02/06/21 22:00 02/09/21 20:40 Metoprolol Succinate 25 Mg Tab.Er.24h PO 25 mg BEDTIME MONE Administration Nicotine 1 patch 02/08/21 14:00 02/10/21 08:51 Nicotine 14 Mg Patch.Td24 TD 1 patch DAILY MONE Administration Nitroglycerin 0.4 mg 02/06/21 21:30 Nitroglycerin 0.4 Mg Tab.Subl SL PRN PRN Chest Pain Non-Formulary Medication 500 mcg 02/07/21 09:00 02/10/21 08:50 Cyanocobalamin (Vitamin B-12) PO Not Given DAILY MONE Non-Formulary 1 puff 02/07/21 09:00 02/08/21 08:46 Medication 1 Each ( PO 1 puff Breo 100-25mcg) DAILY MONE Administration Non-Formulary Medication 1 each 02/08/21 09:00 02/10/21 08:50 Fluticasone Furoate-Vilanterol [Breo Ellipta] IH 1 each DAILY MONE Administration Ondansetron HCl 4 mg 02/06/21 18:42 Ondansetron Hcl/Pf 4 Mg/2 Ml Sdv IVP Q6H PRN Nausea / Vomiting Oxycodone/Acetaminophen 1 tab 02/06/21 21:30 02/07/21 05:40 Oxycodone/Acetaminophen 10/325 Mg Tablet PO 1 tab Q8H MONE Administration Oxycodone/Acetaminophen 1 tab 02/07/21 13:00 02/10/21 13:09 Oxycodone/Acetaminophen 10/325 Mg Tablet PO 1 tab Q8HR MONE Administration Pantoprazole Sodium 40 mg 02/07/21 06:30 02/10/21 05:43 Pantoprazole Sodium 40 Mg Tablet.Dr PO 40 mg QDAC MONE Administration Potassium Chloride 20 meq 02/06/21 22:00 02/06/21 23:03 Potassium Chloride 20 Meq Tab PO 20 meq BEDTIME MONE Administration Potassium Chloride 20 meq 02/07/21 09:00 02/07/21 09:17 Potassium Chloride 20 Meq Tab PO 20 meq DAILYWM MONE Administration Potassium Chloride 20 meq 02/08/21 08:30 02/10/21 08:50 Potassium Chloride 20 Meq Tab PO 20 meq DAILYWM MONE Administration Prednisone 10 mg 02/08/21 17:00 02/10/21 08:50 Prednisone 10 Mg Tablet PO 10 mg BIDWM MONE Administration Promethazine HCl/Codeine 10 ml 02/06/21 21:36 Promethazine/Codeine Syrup 6.25/10 Mg/5 Ml Disp.Syringe PO Q6H PRN Cough Ropinirole HCl 0.5 mg 02/06/21 22:00 02/09/21 20:39 Ropinirole Hcl 0.25 Mg Tablet PO 0.5 mg BEDTIME MONE Administration Rosuvastatin Calcium 10 mg 02/06/21 22:00 02/09/21 20:39 Rosuvastatin Calcium 10 Mg Tablet PO 10 mg BEDTIME MONE Administration Sodium Chloride 1 syr 02/09/21 21:00 02/10/21 13:09 0.9% Sodium Chloride 10 Ml Disp.Syrin IVF 1 syr Q8HR MONE Administration Tizanidine HCl 4 mg 02/06/21 22:58 Tizanidine Hcl 4 Mg Tablet PO TID PRN Spasms Vital Signs: Temp Pulse Resp BP Pulse Ox 02/06/21 15:29 97.4 F L 74 20 115/74 90 L Discharge Plan Discharge Patient Disposition: ADMITTED INPATIENT Discharge Problem: Right lower lobe pneumonia, COPD (chronic obstructive pulmonary disease) ED Provider: BURT BARGER Condition: Stable Physician Progress Note: []
[2021-02-06] MEDS ORDERED: VENTOLIN HFA (PER PUFF-WITH SPACER) IH STA (16:33)
[2021-02-06 16:50] LABS: BASOPHILS # (AUTO) 0.1 K/uL (0-0.2); BASOPHILS % (AUTO) 0.5 % (0.0-3.0); EOSINOPHILS # (AUTO) 0.3 K/ul (0.0-0.7); EOSINOPHILS % (AUTO) 2.1 % (0.0-7.0); HEMATOCRIT 41.3 % (37.0-47.0); HEMOGLOBIN 14.2 g/dl (12.0-16.0); IMMATURE GRANULOCYTE % (AUTO) 0.2 % (0.0-5.0); MEAN CORPUSCULAR HEMOGLOBIN 31.2 pg (27.0-31.0); MEAN CORPUSCULAR HGB CONC 34.4 (31.8-35.4); MEAN CORPUSCULAR VOLUME 90.8 fl (81.0-99.0); MONOCYTES % (AUTO) 8.1 (0-10); NEUTROPHILS # (AUTO) 8.9 K/ul (2.0-6.9); NEUTROPHILS % (AUTO) 73.1 % (42.2-75.2); PLATELET COUNT 171 10^3/uL (140-440); RDW COEFFICIENT OF VARIATION 14.6 % (11.6-14.8); RED BLOOD COUNT 4.55 10^6/ul (4.20-5.40); WHITE BLOOD COUNT 12.18 K/ul (4.6-10.2)
[2021-02-06 16:52] LABS: ABG PH 7.48 (7.35-7.45)
--- NOTE | 2021-02-06 16:52 | DI ---
EXAM: Chest one view HISTORY: Cough and wheezing COMPARISON: 01/17/2020 TECHNIQUE: Single view of the chest was performed FINDINGS: No visible pneumothorax. No large pleural effusion. Heart borderline enlarged. Mediasti nal contour unchanged. Large hiatal hernia. Hazy opacity in the right mid to lower lung field. IMPRESSION: 1. Hazy opacity in the right mid to lower lung field. This could represent pneumonia, though is pos sibly due to overlying soft tissue artifact. Finding can be correlate with PA and lateral chest radi ographs. 2. Large hiatal hernia
[2021-02-06 17:03] LABS: ALANINE AMINOTRANSFERASE 7.8 U/L (0-35); ALBUMIN 4.26 g/dL (3.5-5.0); ALKALINE PHOSPHATASE 44.4 U/L (53-141); ASPARTATE AMINO TRANSFERASE 22.7 U/L (14-36); BILIRUBIN,TOTAL 0.54 mg/dL (0.2-1.3); BLOOD UREA NITROGEN 15.6 mg/dL (7-17); CALCIUM 10.43 mg/dL (8.4-10.2); CARBON DIOXIDE 27.8 mmol/L (22-30.0); CHLORIDE 103.4 mmol/L (98-107); CREATININE 0.9 mg/dL (0.60-1.30); GLUCOSE 105.4 mg/dL (74-106); POTASSIUM 4.34 mmol/L (3.5-5.1); SODIUM 137.5 mmol/L (134.5-145); TOTAL PROTEIN 7.53 g/dL (6.3-8.2)
[2021-02-06 17:07] LABS: MOLECULAR FLU A NEGATIVE BY NAAT (NEGATIVE); MOLECULAR FLU B NEGATIVE BY NAAT (NEGATIVE)
--- NOTE | 2021-02-06 18:15 | CT ---
EXAM: CT chest without contrast HISTORY: Evaluate hazy opacity in the right mid lung COMPARISON: Same date chest x-ray and multiple prior chest x-rays and CT chest 11/04/2016 TECHNIQUE: Serial axial images of the chest were obtained from the lung apices to the upper abdomen without contrast. These were viewed in multiple planes. FINDINGS: The thyroid is normal. The visualized vessels demonstrate mild calcific atherosclerotic d isease without aneurysm or stenosis. The heart is normal in size without pericardial effusion. Ther e is a precarinal lymph node measuring 1.2 cm in short axis. No additional enlarged lymph nodes are present. There is a large hiatal hernia. There is no pneumothorax or effusion. There is a right lower lobe posterior dependent consolidation w ith internal lucencies are consistent with previously noted areas of emphysema and less likely cavita tion. There is scattered moderate emphysematous disease with subpleural interstitial thickening/fibr osis. No additional mass or consolidation is identified. Limited views of the soft tissues in the upper abdomen demonstrate to exophytic low attenuation renal cysts. The osseous structures demonstrate degenerative disease throughout the spine which is stable when compared to previous study. IMPRESSION: 1. The hazy ground-glass opacity on prior study correlates with consolidation in the posterior right lower lobe in contact the pleura. This is concerning for pneumonia. The central lucencies in the c onsolidation. Correlate with areas of emphysema seen on prior study. 2. Scattered emphysema with mild subpleural fibrosis. There is no honeycombing. 3. Precarinal lymph node is enlarged and likely reactive. 4. Stable large hiatal hernia. All CT scans are performed using dose optimization techniques as appropriate to the performed exam an d include at least one of the following: Automated exposure control, adjustment of the mA and/or kV according t o size, and the use of iterative reconstruction technique.
[2021-02-06 18:23] LABS: BILIRUBIN,URINE Negative (NEGATIVE); CLARITY,URINE Clear (CLEAR); COLOR,URINE Yellow (YELLOW); GLUCOSE, URINE (UA) Negative (NEGATIVE); KETONES,URINE Negative (NEGATIVE); LEUKOCYTE ESTERASE ,URINE Negative (NEGATIVE); NITRITE,URINE Negative (NEGATIVE); PROTEIN,URINE Negative (NEGATIVE); URINE, BLOOD Negative (NEGATIVE); UROBILINOGEN,URINE 0.2 (0.2)
[2021-02-06] MEDS ORDERED: ROCEPHIN 1 GM/50 ML D5W 1 GM/50 ML BAG IV STA (18:34)
[2021-02-06] MEDS ORDERED: ZITHROMAX PO STA ×2 (18:35→18:42)
[2021-02-06] MEDS ORDERED: SOLU-MEDROL 125 MG IVP STA (18:38)
[2021-02-06] MEDS ORDERED: ZOFRAN 4 MG/2 ML IVP PRN (18:42)
[2021-02-06] MEDS ORDERED: TYLENOL PO PRN (18:42)
[2021-02-06] MEDS ORDERED: SODIUM CHLORIDE 0.9%-KCL 20 MEQ 1,000 ML IV SCH (19:00)
[2021-02-06] MEDS ORDERED: LOVENOX SUBCUT SCH (19:00)
[2021-02-06] MEDS ORDERED: SODIUM CHLORIDE 1,000 ML IV SCH (19:00)
[2021-02-06] MEDS: VENTOLIN HFA (PER PUFF-WITH SPACER) IH SCH (20:40)
[2021-02-06 20:54] VITALS: BMI 30.5
[2021-02-06] MEDS ORDERED: NITROSTAT SL PRN (21:30)
[2021-02-06] MEDS ORDERED: PHENERGAN WITH CODEINE 6.25/10 MG/5 ML PO PRN (21:36)
[2021-02-06] MEDS ORDERED: CELEXA PO SCH (22:00)
[2021-02-06] MEDS ORDERED: K-DUR PO SCH (22:00)
[2021-02-06] MEDS ORDERED: ZANAFLEX PO PRN (22:58)
[2021-02-06] MEDS: CELEXA PO SCH (23:03)
[2021-02-06] MEDS: NORVASC PO SCH (23:03)
[2021-02-06] MEDS: REQUIP PO SCH (23:03)
[2021-02-06] MEDS: ASPIRIN CHEWABLE PO SCH (23:03)
[2021-02-06] MEDS: TOPROL XL PO SCH (23:03)
[2021-02-06] MEDS: CRESTOR PO SCH (23:03)
[2021-02-06] MEDS: XANAX PO SCH (23:03)
[2021-02-06] MEDS: PLAVIX PO SCH (23:04)
[2021-02-06] MEDS: PERCOCET 10-325 PO SCH (23:39)
[2021-02-06] MEDS: SODIUM CHLORIDE 1,000 ML IV SCH (23:40)
[2021-02-07] MEDS: SOLU-MEDROL 125 MG IVP SCH ×5 (01:00→23:49)
[2021-02-07 04:09] LABS: HBsAgSCREEN Negative (Negative); HEP A AB, IgM Negative (Negative); HEP B CORE Ab, IgM Negative (Negative); HEP C VIRUS AB < 0.1 s/co ratio (0.0-0.9)
[2021-02-07] MEDS: VENTOLIN HFA (PER PUFF-WITH SPACER) IH SCH ×4 (04:55→19:05)
[2021-02-07 05:19] LABS: BASOPHILS % (AUTO) 0.3 % (0.0-3.0); HEMATOCRIT 43.5 % (37.0-47.0); HEMOGLOBIN 14.4 g/dl (12.0-16.0); IMMATURE GRANULOCYTE % (AUTO) 0.2 % (0.0-5.0); LYMPHOCYTES # (AUTO) 0.8 K/uL (0.60-3.4); LYMPHOCYTES % (AUTO) 12.8 (10.0-50.0); MEAN CORPUSCULAR HEMOGLOBIN 30.6 pg (27.0-31.0); MEAN CORPUSCULAR HGB CONC 33.1 (31.8-35.4); MEAN CORPUSCULAR VOLUME 92.4 fl (81.0-99.0); MONOCYTES % (AUTO) 0.5 (0-10); NEUTROPHILS % (AUTO) 86.2 % (42.2-75.2); PLATELET COUNT 156 10^3/uL (140-440); RDW COEFFICIENT OF VARIATION 14.5 % (11.6-14.8); RED BLOOD COUNT 4.71 10^6/ul (4.20-5.40); WHITE BLOOD COUNT 5.85 K/ul (4.6-10.2)
[2021-02-07 05:31] LABS: PROTHROMBIN TIME 10.2 SEC (9.3-11.0)
[2021-02-07 05:34] LABS: ALANINE AMINOTRANSFERASE 8.9 U/L (0-35); ALBUMIN 4.04 g/dL (3.5-5.0); ALKALINE PHOSPHATASE 39.8 U/L (53-141); ASPARTATE AMINO TRANSFERASE 20.5 U/L (14-36); BILIRUBIN,TOTAL 0.36 mg/dL (0.2-1.3); BLOOD UREA NITROGEN 25.2 mg/dL (7-17); CALCIUM 9.81 mg/dL (8.4-10.2); CARBON DIOXIDE 28.5 mmol/L (22-30.0); CHLORIDE 106.6 mmol/L (98-107); CREATININE 0.87 mg/dL (0.60-1.30); GLUCOSE 166.7 mg/dL (74-106); POTASSIUM 5.02 mmol/L (3.5-5.1); SODIUM 141.4 mmol/L (134.5-145); TOTAL PROTEIN 7.45 g/dL (6.3-8.2)
[2021-02-07] MEDS: SYNTHROID PO SCH (05:40)
[2021-02-07] MEDS: PERCOCET 10-325 PO SCH ×3 (05:40→20:24)
[2021-02-07] MEDS: PROTONIX PO SCH (05:41)
[2021-02-07] MEDS ORDERED: [UNRECOGNIZED DRUG - OTHER] PO SCH (09:00)
[2021-02-07] MEDS ORDERED: CALCIUM CARBONATE VITAMIN D3 PO SCH (09:00)
[2021-02-07] MEDS ORDERED: K-DUR PO SCH (09:00)
[2021-02-07] MEDS: OMEGA-3 FISH OIL PO SCH (09:18)
[2021-02-07] MEDS: CALCIUM 500 + VIT D 5 MCG (200 IU) TABLET PO SCH (09:18)
[2021-02-07] MEDS: SODIUM CHLORIDE 1,000 ML IV SCH ×2 (09:21→19:10)
[2021-02-07] MEDS: NON-FORMULARY MEDICATION (Fluticasone Furoate-Vilanterol [Breo Ellipta] 1 EACH blister wit PO SCH (10:58)
[2021-02-07] MEDS: NON-FORMULARY MEDICATION (Cyanocobalamin (Vitamin B-12) 500 mcg Tablet) PO SCH (10:58)
[2021-02-07] MEDS: ASPIRIN CHEWABLE PO SCH (20:22)
[2021-02-07] MEDS: TOPROL XL PO SCH (20:23)
[2021-02-07] MEDS: ZITHROMAX PO SCH (20:23)
[2021-02-07] MEDS: REQUIP PO SCH (20:23)
[2021-02-07] MEDS: XANAX PO SCH (20:23)
[2021-02-07] MEDS: PLAVIX PO SCH (20:24)
[2021-02-07] MEDS: CRESTOR PO SCH (20:24)
[2021-02-07] MEDS: LOVENOX SUBCUT SCH (20:24)
[2021-02-07] MEDS: CELEXA PO SCH (20:24)
[2021-02-07] MEDS: NORVASC PO SCH (20:24)
[2021-02-07] MEDS: ROCEPHIN 1 GM/50 ML D5W 1 GM/50 ML BAG IV SCH (20:26)
[2021-02-08] MEDS: VENTOLIN HFA (PER PUFF-WITH SPACER) IH SCH ×4 (04:50→19:10)
[2021-02-08] MEDS: SOLU-MEDROL 125 MG IVP SCH (05:13)
[2021-02-08] MEDS: PERCOCET 10-325 PO SCH ×3 (05:13→20:45)
[2021-02-08 05:19] LABS: BASOPHILS % (AUTO) 0.1 % (0.0-3.0); HEMATOCRIT 42.2 % (37.0-47.0); HEMOGLOBIN 13.7 g/dl (12.0-16.0); IMMATURE GRANULOCYTE # (AUTO) 0.1 (0.0-1.0); IMMATURE GRANULOCYTE % (AUTO) 0.7 % (0.0-5.0); LYMPHOCYTES # (AUTO) 0.8 K/uL (0.60-3.4); LYMPHOCYTES % (AUTO) 6.2 (10.0-50.0); MEAN CORPUSCULAR HEMOGLOBIN 30.4 pg (27.0-31.0); MEAN CORPUSCULAR HGB CONC 32.5 (31.8-35.4); MEAN CORPUSCULAR VOLUME 93.6 fl (81.0-99.0); MONOCYTES # (AUTO) 0.4 K/uL (0.4-2.0); MONOCYTES % (AUTO) 2.8 (0-10); NEUTROPHILS # (AUTO) 11.3 K/ul (2.0-6.9); NEUTROPHILS % (AUTO) 90.2 % (42.2-75.2); PLATELET COUNT 172 10^3/uL (140-440); RDW COEFFICIENT OF VARIATION 14.5 % (11.6-14.8); RED BLOOD COUNT 4.51 10^6/ul (4.20-5.40)
[2021-02-08 05:32] LABS: PROTHROMBIN TIME 9.7 SEC (9.3-11.0)
[2021-02-08 05:33] LABS: ALANINE AMINOTRANSFERASE 8.4 U/L (0-35); ALBUMIN 3.66 g/dL (3.5-5.0); ALKALINE PHOSPHATASE 41.2 U/L (53-141); ASPARTATE AMINO TRANSFERASE 18.5 U/L (14-36); BILIRUBIN,TOTAL 0.22 mg/dL (0.2-1.3); BLOOD UREA NITROGEN 27.7 mg/dL (7-17); CALCIUM 8.95 mg/dL (8.4-10.2); CARBON DIOXIDE 29.5 mmol/L (22-30.0); CHLORIDE 107.1 mmol/L (98-107); CREATININE 0.89 mg/dL (0.60-1.30); GLUCOSE 237.5 mg/dL (74-106); POTASSIUM 4.8 mmol/L (3.5-5.1); SODIUM 140.1 mmol/L (134.5-145); TOTAL PROTEIN 6.71 g/dL (6.3-8.2)
[2021-02-08] MEDS: SYNTHROID PO SCH (05:52)
[2021-02-08] MEDS: PROTONIX PO SCH (05:52)
[2021-02-08] MEDS: CALCIUM 500 + VIT D 5 MCG (200 IU) TABLET PO SCH (08:42)
[2021-02-08] MEDS: K-DUR PO SCH (08:42)
[2021-02-08] MEDS: OMEGA-3 FISH OIL PO SCH (08:42)
[2021-02-08] MEDS: NON-FORMULARY MEDICATION (Fluticasone Furoate-Vilanterol [Breo Ellipta] 1 EACH blister wit PO SCH (08:46)
[2021-02-08] MEDS: NON-FORMULARY MEDICATION (Cyanocobalamin (Vitamin B-12) 500 mcg Tablet) PO SCH (09:09)
[2021-02-08] MEDS: NICODERM 14 MG TD SCH (13:55)
[2021-02-08] MEDS: SODIUM CHLORIDE 1,000 ML IV SCH (16:31)
[2021-02-08] MEDS: PREDNISONE PO SCH (16:52)
[2021-02-08] MEDS: HUMULIN R SUBCUT PRN ×2 (17:14→21:41)
[2021-02-08] MEDS: ASPIRIN CHEWABLE PO SCH (20:44)
[2021-02-08] MEDS: TOPROL XL PO SCH (20:44)
[2021-02-08] MEDS: REQUIP PO SCH (20:44)
[2021-02-08] MEDS: ZITHROMAX PO SCH (20:44)
[2021-02-08] MEDS: CRESTOR PO SCH (20:45)
[2021-02-08] MEDS: NORVASC PO SCH (20:45)
[2021-02-08] MEDS: XANAX PO SCH (20:45)
[2021-02-08] MEDS: PLAVIX PO SCH (20:45)
[2021-02-08] MEDS: CELEXA PO SCH (20:45)
[2021-02-08] MEDS: ROCEPHIN 1 GM/50 ML D5W 1 GM/50 ML BAG IV SCH (20:46)
[2021-02-08] MEDS: LOVENOX SUBCUT SCH (20:46)
[2021-02-09 04:28] LABS: BASOPHILS % (AUTO) 0.1 % (0.0-3.0); HEMOGLOBIN 12.5 g/dl (12.0-16.0); IMMATURE GRANULOCYTE # (AUTO) 0.1 (0.0-1.0); IMMATURE GRANULOCYTE % (AUTO) 0.9 % (0.0-5.0); LYMPHOCYTES # (AUTO) 0.8 K/uL (0.60-3.4); MEAN CORPUSCULAR HEMOGLOBIN 30.5 pg (27.0-31.0); MEAN CORPUSCULAR HGB CONC 32.9 (31.8-35.4); MEAN CORPUSCULAR VOLUME 92.7 fl (81.0-99.0); MONOCYTES # (AUTO) 0.7 K/uL (0.4-2.0); NEUTROPHILS # (AUTO) 8.7 K/ul (2.0-6.9); PLATELET COUNT 154 10^3/uL (140-440); RDW COEFFICIENT OF VARIATION 14.3 % (11.6-14.8); WHITE BLOOD COUNT 10.34 K/ul (4.6-10.2)
[2021-02-09 04:40] LABS: PROTHROMBIN TIME 9.8 SEC (9.3-11.0)
[2021-02-09 04:42] LABS: ALANINE AMINOTRANSFERASE 8.4 U/L (0-35); ALBUMIN 3.31 g/dL (3.5-5.0); ALKALINE PHOSPHATASE 34.2 U/L (53-141); ASPARTATE AMINO TRANSFERASE 16.7 U/L (14-36); BILIRUBIN,TOTAL 0.24 mg/dL (0.2-1.3); BLOOD UREA NITROGEN 26.7 mg/dL (7-17); CALCIUM 8.66 mg/dL (8.4-10.2); CARBON DIOXIDE 28.1 mmol/L (22-30.0); CHLORIDE 108.7 mmol/L (98-107); CREATININE 0.71 mg/dL (0.60-1.30); GLUCOSE 121.3 mg/dL (74-106); POTASSIUM 4.13 mmol/L (3.5-5.1); SODIUM 139.2 mmol/L (134.5-145); TOTAL PROTEIN 6.17 g/dL (6.3-8.2)
[2021-02-09] MEDS: VENTOLIN HFA (PER PUFF-WITH SPACER) IH SCH ×4 (04:50→19:50)
[2021-02-09] MEDS: PERCOCET 10-325 PO SCH ×3 (05:47→20:39)
[2021-02-09] MEDS: PROTONIX PO SCH (05:47)
[2021-02-09] MEDS: SYNTHROID PO SCH (06:51)
[2021-02-09] MEDS: OMEGA-3 FISH OIL PO SCH (09:20)
[2021-02-09] MEDS: PREDNISONE PO SCH ×2 (09:20→17:09)
[2021-02-09] MEDS: CALCIUM 500 + VIT D 5 MCG (200 IU) TABLET PO SCH (09:20)
[2021-02-09] MEDS: K-DUR PO SCH (09:20)
[2021-02-09] MEDS: NICODERM 14 MG TD SCH (09:21)
[2021-02-09] MEDS: NON-FORMULARY MEDICATION (Cyanocobalamin (Vitamin B-12) 500 mcg Tablet) PO SCH (09:23)
--- NOTE | 2021-02-09 10:40 | PCM.PROG ---
Attending Provider: ATTENDING PROVIDER: Dr. SIA DOMINGUEZ This patient is seen with Deisy Walters, Nurse Practitioner. DATE OF SERVICE: 02/09/21 SUBJECTIVE: This 70 year old /WHITE F was hospitalized 02/06/21. Resting comfortably in bed. tolerating oral steroids. She has been eating well. REVIEW OF SYSTEMS: CONSTITUTIONAL: No night sweats. No fatigue, malaise, lethargy. No fever or chills. HEENT: Eyes: No visual changes. No eye pain. No eye discharge. ENT: No runny nose. No epistaxis. No sinus pain. No odynophagia. No congestion. RESPIRATORY: Cough. No hemoptysis. Positive for shortness of breath. CARDIOVASCULAR: No angina symptoms. No CHF symptoms. No atypical chest pain for CAD. No palpitations. No orthopnea.. GASTROINTESTINAL: No abdominal pain. No nausea or vomiting. No diarrhea or constipation. No hematemesis. No hematochezia. GENITOURINARY: No urgency. No frequency. No dysuria. No hematuria. No obstructive symptoms. No discharge. No pain. No significant abnormal bleeding. MUSCULOSKELETAL: No musculoskeletal pain; no joint swelling. NEUROLOGICAL: Awake, alert, oriented to time, place and person. No headache. No neck pain. No syncope. No seizures. No dizziness. PSYCHIATRIC: Not anxious. No depression. No suicidal thoughts. No homicidal thoughts. SKIN: No rash. No lesions. No wounds. ENDOCRINE: No unexplained weight loss. No weight gain. HEMATOLOGIC/LYMPHATIC: No anemia. No purpura. No petechiae. No prolonged or excessive bleeding. No palpable lymph nodes. PHYSICAL EXAMINATION: GENERAL: The patient is awake, alert and oriented, lying/sitting in bed in no distress. VITAL SIGNS: Temperature 97.7 F, Pulse 50, Respiratory Rate 18, BP 120/64, Pulse Ox 95% HEENT: Head normocephalic, atraumatic. Eyes: Extraocular muscles are intact. Pupils are equal, round and reactive to light and accommodation. Ears: No lesions. Nose appeared normal. Throat: No exudate or erythema. NECK: Supple. No JVD, no carotid bruit. No lymphadenopathy or thyromegaly. LUNGS: Diminished breath sounds. Bilateral expiratory wheezing Clear to auscultation. Percussion note normal. Chest symmetrical. HEART: S1, S2, no S3. No murmurs. No cyanosis or clubbing. No ascites. Pulses: Dorsalis pedis and posterior tibial pulses +1 to +2 both sides. ABDOMEN: Soft. Non-tender. Bowel sounds active. No CVA tenderness. No mass felt. EXTREMITIES: No edema. Full range of motion of all extremities, equal. NEUROLOGIC: No focal deficit. Cranial nerves II through XII are grossly intact. No headache. No double vision. SKIN: Not dry. Intact. Turgor-normal. LYMPHATIC: No palpable lymph nodes/no lymphedema. MUSCULOSKELETAL: Normal joints with no swelling. Muscle tone is normal. LAB REVIEW: 02/09/21 04:10 02/09/21 04:10 02/09/21 04:10: Sodium 139.2, Potassium 4.13, Chloride 108.7 H, Carbon Dioxide 28.1, Anion Gap 6.53, BUN 26.7 H, Creatinine 0.71, Estimated GFR (MDRD) 82.00, BUN/Creatinine Ratio 37.60, Glucose 121.3 H D, Calcium 8.66, Total Bilirubin 0.24, AST 16.7, ALT 8.4, Alkaline Phosphatase 34.2 L, Total Protein 6.17 L, Albumin 3.31 L, Globulin 2.86, Albumin/Globulin Ratio 1.15 02/09/21 04:10: PT 9.8, INR 0.92 02/09/21 04:10: WBC 10.34 H, RBC 4.10 L, Hgb 12.5, Hct 38.0, MCV 92.7, MCH 30.5, MCHC 32.9, RDW Coeff of Melody 14.3, Plt Count 154, Immature Gran % (Auto) 0.9, Neut % (Auto) 84.0 H, Lymph % (Auto) 8.0 L, [place] % (Auto) 7.0, Eos % (Auto) 0.0, Baso % (Auto) 0.1, Neut # (Auto) 8.7 H, Lymph # (Auto) 0.8, [place] # (Auto) 0.7, Eos # (Auto) 0.0, Baso # (Auto) 0.0, Immature Gran # (Auto) 0.1 02/08/21 04:55: TSH 0.087 L 02/08/21 04:55: Hemoglobin A1c 5.99 ASSESSMENT: 1. Right lower lobe pneumonia. 2. Severe COPD. 3. Smoker. PLAN: 1. D/C Lovenox. 2. Continue Rocephin. 3. T4 Plan and coordination of the patient's care discussed in the presence of Last Chalker and nurse. CONDITION: Stable SCRIBED BY: JANAK MORENO Emissions Testing And Repair Technician scribed while in presence of service performed by Dr. Dominguez/Deisy Walters APRN on 02/09/21 ([id number])
[2021-02-09] MEDS: HUMULIN R SUBCUT PRN ×3 (11:41→20:41)
--- NOTE | 2021-02-09 13:42 | PN ---
DATE OF SERVICE: 02/06/2021 SUBJECTIVE: The patient was seen and examined in the emergency room. The patient came to the emergency room with complaint of 3-4 days cough, congestive, fever and chills. The patient underwent several testing. At that time more dictation pending. The patient has pneumonia by chest x-ray and CT scan, chest and arterial blood gasses or borderline. The patient is oriented to time, place and person. REVIEW OF SYSTEMS: CONSTITUTIONAL: No night sweats. No fatigue, malaise, lethargy. No fever or chills. HEENT: Eyes: No visual changes. No eye pain. No eye discharge. ENT: No runny nose. No epistaxis. No sinus pain. No sore throat. No odynophagia. No congestion. RESPIRATORY: No cough, no congestion. No hemoptysis. No shortness of breath. CARDIOVASCULAR: No angina symptoms. No CHF symptoms. No atypical chest pain for CAD. No palpitations. No PND. No orthopnea. GASTROINTESTINAL: No abdominal pain. No nausea or vomiting. No diarrhea or constipation. No hematemesis. No hematochezia. GENITOURINARY: No urgency. No frequency. No dysuria. No hematuria. No obstructive symptoms. No discharge. No pain. No significant abnormal bleeding. MUSCULOSKELETAL: No musculoskeletal pain; no joint swelling. NEUROLOGICAL: No headache. No neck pain. No syncope. No seizures. No dizziness. PSYCHIATRIC: Not anxious. No depression. No suicidal thoughts. No homicidal thoughts. SKIN: No rash. No lesions. No wounds. ENDOCRINE: No unexplained weight loss. No weight gain. HEMATOLOGIC/LYMPHATIC: No anemia. No purpura. No petechiae. No prolonged or excessive bleeding. No palpable lymph nodes. PHYSICAL EXAMINATION: HEENT: Head normocephalic, atraumatic. Eyes: Extraocular muscles are intact. Pupils are equal, round and reactive to light and accommodation. Ears: No lesions. Nose appeared normal. Throat: No exudate or erythema. NECK: Supple. No JVD, no carotid bruit. No lymphadenopathy or thyromegaly. LUNGS: Clear to auscultation. Percussion note normal. Chest symmetrical. HEART: S1, S2, no S3. No murmurs. No cyanosis or clubbing. No ascites. Pulses: Dorsalis pedis and posterior tibial pulses +1 to +2 bilaterally. ABDOMEN: Soft. Nontender. Bowel sounds active. No CVA tenderness. No mass felt. EXTREMITIES: No edema. Full range of motion of all extremities, equal. NEUROLOGIC: No focal deficit. Cranial nerves II through XII are grossly intact. No headache. No double vision. SKIN: Not dry. Intact. Turgor - normal. LYMPHATIC: No palpable lymph nodes/no lymphedema. MUSCULOSKELETAL: Normal joints with no swelling. Muscle tone is normal. ASSESSMENT: 1. Pneumonia, cough and congestion, community acquired 2. PLAN: 1. Put the patient on telemetry 2. Steroids 3. Antibiotics 4. Rocephin and Zithromax combination 5. IV fluids 6. Antitussives 7. The patient is a DNR CONDITION: Stable. TIME SPENT: More than 30 minutes. Plan and coordination of the patient's care discussed in the presence of nurse. LILA
[2021-02-09] MEDS: SODIUM CHLORIDE 1,000 ML IV SCH (14:10)
[2021-02-09] MEDS: XANAX PO SCH (20:39)
[2021-02-09] MEDS: NORVASC PO SCH (20:39)
[2021-02-09] MEDS: REQUIP PO SCH (20:39)
[2021-02-09] MEDS: CRESTOR PO SCH (20:39)
[2021-02-09] MEDS: CELEXA PO SCH (20:39)
[2021-02-09] MEDS: TOPROL XL PO SCH (20:40)
[2021-02-09] MEDS: PLAVIX PO SCH (20:40)
[2021-02-09] MEDS: ZITHROMAX PO SCH (20:40)
[2021-02-09] MEDS: ROCEPHIN 1 GM/50 ML D5W 1 GM/50 ML BAG IV SCH (20:40)
[2021-02-09] MEDS: ASPIRIN CHEWABLE PO SCH (20:40)
[2021-02-10] MEDS: VENTOLIN HFA (PER PUFF-WITH SPACER) IH SCH ×2 (04:55→10:08)
[2021-02-10 05:19] LABS: BASOPHILS % (AUTO) 0.1 % (0.0-3.0); HEMATOCRIT 38.6 % (37.0-47.0); HEMOGLOBIN 12.7 g/dl (12.0-16.0); IMMATURE GRANULOCYTE # (AUTO) 0.1 (0.0-1.0); LYMPHOCYTES # (AUTO) 1.8 K/uL (0.60-3.4); LYMPHOCYTES % (AUTO) 21.1 (10.0-50.0); MEAN CORPUSCULAR HEMOGLOBIN 30.4 pg (27.0-31.0); MEAN CORPUSCULAR HGB CONC 32.9 (31.8-35.4); MEAN CORPUSCULAR VOLUME 92.3 fl (81.0-99.0); MONOCYTES % (AUTO) 11.7 (0-10); NEUTROPHILS # (AUTO) 5.7 K/ul (2.0-6.9); NEUTROPHILS % (AUTO) 66.1 % (42.2-75.2); PLATELET COUNT 149 10^3/uL (140-440); RDW COEFFICIENT OF VARIATION 14.2 % (11.6-14.8); RED BLOOD COUNT 4.18 10^6/ul (4.20-5.40); WHITE BLOOD COUNT 8.61 K/ul (4.6-10.2)
[2021-02-10 05:31] LABS: ALANINE AMINOTRANSFERASE 15.9 U/L (0-35); ALBUMIN 3.21 g/dL (3.5-5.0); ALKALINE PHOSPHATASE 36.6 U/L (53-141); BILIRUBIN,TOTAL 0.28 mg/dL (0.2-1.3); BLOOD UREA NITROGEN 24.3 mg/dL (7-17); CALCIUM 8.76 mg/dL (8.4-10.2); CARBON DIOXIDE 33.3 mmol/L (22-30.0); CHLORIDE 105.1 mmol/L (98-107); CREATININE 0.68 mg/dL (0.60-1.30); GLUCOSE 105.5 mg/dL (74-106); POTASSIUM 4.39 mmol/L (3.5-5.1); SODIUM 138.7 mmol/L (134.5-145); TOTAL PROTEIN 5.94 g/dL (6.3-8.2)
[2021-02-10] MEDS: PERCOCET 10-325 PO SCH ×2 (05:43→13:09)
[2021-02-10] MEDS: PROTONIX PO SCH (05:43)
[2021-02-10] MEDS: SYNTHROID PO SCH (05:44)
[2021-02-10 05:48] VITALS: BP 137/81; TEMP 97.6
[2021-02-10] MEDS: K-DUR PO SCH (08:50)
[2021-02-10] MEDS: OMEGA-3 FISH OIL PO SCH (08:50)
[2021-02-10] MEDS: PREDNISONE PO SCH (08:50)
[2021-02-10] MEDS: NON-FORMULARY MEDICATION (Cyanocobalamin (Vitamin B-12) 500 mcg Tablet) PO SCH (08:50)
[2021-02-10] MEDS: CALCIUM 500 + VIT D 5 MCG (200 IU) TABLET PO SCH (08:50)
[2021-02-10] MEDS: NICODERM 14 MG TD SCH (08:51)
--- NOTE | 2021-02-10 08:57 | PCM.PROG ---
Attending Provider: ATTENDING PROVIDER: Dr. SIA DOMINGUEZ This patient is seen with Deisy Walters, Nurse Practitioner. DATE OF SERVICE: 02/10/21 SUBJECTIVE: This 70 year old /WHITE F was hospitalized 02/06/21. Resting comfortably in bed. Shortness of breath has improved. She is still significantly wheezing and shortness of breath with exertion. She is eating well. No fever. REVIEW OF SYSTEMS: CONSTITUTIONAL: No night sweats. No fatigue, malaise, lethargy. No fever or chills. HEENT: Eyes: No visual changes. No eye pain. No eye discharge. ENT: No runny nose. No epistaxis. No sinus pain. No odynophagia. No congestion. RESPIRATORY: Cough. No hemoptysis. Shortness of breath. CARDIOVASCULAR: No angina symptoms. No CHF symptoms. No atypical chest pain for CAD. No palpitations. No orthopnea.. GASTROINTESTINAL: No abdominal pain. No nausea or vomiting. No diarrhea or constipation. No hematemesis. No hematochezia. GENITOURINARY: No urgency. No frequency. No dysuria. No hematuria. No obstructive symptoms. No discharge. No pain. No significant abnormal bleeding. MUSCULOSKELETAL: No musculoskeletal pain; no joint swelling. NEUROLOGICAL: Awake, alert, oriented to time, place and person. No headache. No neck pain. No syncope. No seizures. No dizziness. PSYCHIATRIC: Not anxious. No depression. No suicidal thoughts. No homicidal thoughts. SKIN: No rash. No lesions. No wounds. ENDOCRINE: No unexplained weight loss. No weight gain. HEMATOLOGIC/LYMPHATIC: No anemia. No purpura. No petechiae. No prolonged or excessive bleeding. No palpable lymph nodes. PHYSICAL EXAMINATION: GENERAL: The patient is awake, alert and oriented, lying/sitting in bed in no distress. VITAL SIGNS: Temperature 97.6 F, Pulse 58, Respiratory Rate 20, BP 137/81, Pulse Ox 96% HEENT: Head normocephalic, atraumatic. Eyes: Extraocular muscles are intact. Pupils are equal, round and reactive to light and accommodation. Ears: No lesions. Nose appeared normal. Throat: No exudate or erythema. NECK: Supple. No JVD, no carotid bruit. No lymphadenopathy or thyromegaly. LUNGS: Diminished breath sounds bilaterally. Inspiratory and expiratory wheezi ng. Percussion note normal. Chest symmetrical. HEART: S1, S2, no S3. No murmurs. No cyanosis or clubbing. No ascites. Pulses: Dorsalis pedis and posterior tibial pulses +1 to +2 both sides. ABDOMEN: Soft. Non-tender. Bowel sounds active. No CVA tenderness. No mass felt. EXTREMITIES: No edema. Full range of motion of all extremities, equal. NEUROLOGIC: No focal deficit. Cranial nerves II through XII are grossly intact. No headache. No double vision. SKIN: Not dry. Intact. Turgor-normal. LYMPHATIC: No palpable lymph nodes/no lymphedema. MUSCULOSKELETAL: Normal joints with no swelling. Muscle tone is normal. LAB REVIEW: 02/10/21 04:55 02/10/21 04:55 02/10/21 04:55: Sodium 138.7, Potassium 4.39, Chloride 105.1, Carbon Dioxide 33.3 H, Anion Gap 4.69, BUN 24.3 H, Creatinine 0.68, Estimated GFR (MDRD) 86.00, BUN/Creatinine Ratio 35.73, Glucose 105.5, Calcium 8.76, Total Bilirubin 0.28, AST 22.0, ALT 15.9, Alkaline Phosphatase 36.6 L, Total Protein 5.94 L, Albumin 3.21 L, Globulin 2.73, Albumin/Globulin Ratio 1.17 02/10/21 04:55: WBC 8.61, RBC 4.18 L, Hgb 12.7, Hct 38.6, MCV 92.3, MCH 30.4, MCHC 32.9, RDW Coeff of Melody 14.2, Plt Count 149, Immature Gran % (Auto) 1.0, Neut % (Auto) 66.1, Lymph % (Auto) 21.1, [place] % (Auto) 11.7 H, Eos % (Auto) 0.0, Baso % (Auto) 0.1, Neut # (Auto) 5.7, Lymph # (Auto) 1.8, [place] # (Auto) 1.0, Eos # (Auto) 0.0, Baso # (Auto) 0.0, Immature Gran # (Auto) 0.1 02/09/21 04:10: Free T4 1.06 02/08/21 04:55: Thyroxine (T4) 6.5 ASSESSMENT: Please see below. 1. Right lower lobe pneumonia. 2. Severe COPD. 3. Smoker. PLAN: 1. Right lower lobe pneumonia. 2. COPD. Plan and coordination of the patient's care discussed in the presence of Forensic Ballistics Expert and nurse. CONDITION: Stable SCRIBED BY: JANAK MORENO Environmental Aid scribed while in presence of service performed by Dr. Dominguez/Deisy Walters APRN on 02/10/21 ([id number])
--- NOTE | 2021-02-10 09:38 | DI ---
EXAM: PA and lateral views of the chest HISTORY: Wheezing and cough COMPARISON: Chest x-ray 02/06/[address] chest 02/06/2021 FINDINGS: The cardiomediastinal silhouette is stable and mildly enlarged. There is a moderate hiata l hernia. There is no pneumothorax or effusion. There is no consolidation or mass. There is scatte red degenerative disease of the spine IMPRESSION: No acute cardiopulmonary process or consolidation with moderate hiatal hernia
--- NOTE | 2021-02-10 10:43 | PN ---
DATE OF SERVICE: 02/08/21 SUBJECTIVE: 70-year-old white female hospitalized with right lower lobe pneumonia. The patient's condition has steadily improved. She is feeling a lot better, coughing much less. REVIEW OF SYSTEMS: CONSTITUTIONAL: No night sweats. No fatigue, malaise, lethargy. No fever or chills. HEENT: Eyes: No visual changes. No eye pain. No eye discharge. ENT: No runny nose. No epistaxis. No sinus pain. No sore throat. No odynophagia. No congestion. RESPIRATORY: Coughing less. No hemoptysis. No shortness of breath. CARDIOVASCULAR: No angina symptoms. No CHF symptoms. No atypical chest pain for CAD. No palpitations. No PND. No orthopnea. GASTROINTESTINAL: No abdominal pain. No nausea or vomiting. No diarrhea or constipation. No hematemesis. No hematochezia. GENITOURINARY: No urgency. No frequency. No dysuria. No hematuria. No obstructive symptoms. No discharge. No pain. No significant abnormal bleeding. MUSCULOSKELETAL: No musculoskeletal pain; no joint swelling. NEUROLOGICAL: No headache. No neck pain. No syncope. No seizures. No dizziness. PSYCHIATRIC: Not anxious. No depression. No suicidal thoughts. No homicidal thoughts. SKIN: No rash. No lesions. No wounds. ENDOCRINE: No unexplained weight loss. No weight gain. HEMATOLOGIC/LYMPHATIC: No anemia. No purpura. No petechiae. No prolonged or excessive bleeding. No palpable lymph nodes. PHYSICAL EXAMINATION: VITAL SIGNS: Temperature 97.8, pulse 96, respiratory rate 18, blood pressure 122/63, pulse ox 96%. HEENT: Head normocephalic, atraumatic. Eyes: Extraocular muscles are intact. Pupils are equal, round and reactive to light and accommodation. Ears: No lesions. Nose appeared normal. Throat: No exudate or erythema. NECK: Supple. No JVD, no carotid bruit. No lymphadenopathy or thyromegaly. LUNGS: Decreased breath sounds but clear to auscultation. Percussion note normal. Chest symmetrical. HEART: S1, S2, no S3. No murmurs. No cyanosis or clubbing. No ascites. Pulses: Dorsalis pedis and posterior tibial pulses +1 to +2 bilaterally. ABDOMEN: Soft. Nontender. Bowel sounds active. No CVA tenderness. No mass felt. EXTREMITIES: No edema. Full range of motion of all extremities, equal. NEUROLOGIC: No focal deficit. Cranial nerves II through XII are grossly intact. No headache. No double vision. SKIN: Not dry. Intact. Turgor - normal. LYMPHATIC: No palpable lymph nodes/no lymphedema. MUSCULOSKELETAL: Normal joints with no swelling. Muscle tone is normal. LABS: Hemoglobin 13.7, hematocrit 42, WBC 12,000, normal differential. Creatinine 0.8, BUN 27, potassium 4.8. ASSESSMENT: 1. Right lower lobe pneumonia seems to be resolving. 2. Chronic lung disease. 3. History of smoking. 4. Diabetes with hyperglycemia on sliding scale. PLAN: 1. Discontinue Solu-Medrol put her on Prednisone 10 mg twice a day. 2. A1C. 3. T4 and TSH to be done. CONDITION: Stable and improving. TIME SPENT: More than 30 minutes. Plan and coordination of the patient's care discussed in the presence of nurse. LILA
--- NOTE | 2021-02-10 12:52 | CM.DICTOOL ---
ADMISSION: 02/06/21 19:38 DISCHARGE: FEBRUARY 10, 2021 DATE OF SERVICE: 02/10/21 FINAL DIAGNOSIS PNEUMONIA, RLL SEVERE COPD HYPERTENSION HYPOTHYROIDISM DYSLIPIDEMIA GENERALIZED OSTEOARTHRITIS RESTLESS LEG SYNDROME HIATAL HERNIA, LARGE SLEEP APNEA DJD SPINE (PAIN MANAGEMENT) CURRENT EVERY DAY SMOKER BLADDER SUSPENSION HYSTERECTOMY CARDIAC STENT ECHOCARDIOGRAM 08/2017 LVEF 47% LVH WITH ENLARGED LEFT ATRIAL CAVITY LAST VITALS Temp Pulse Resp BP Pulse Ox 97.6 F 58 L 20 137/81 89 L 02/10/21 05:45 02/10/21 05:45 02/10/21 05:45 02/10/21 05:45 02/10/21 10:00 TAKE THESE MEDICATIONS AT HOME Albuterol Sulfate (Albuterol Sulfate (Ventolin Hfa) 18 Gm 1 Puff With Spacer) 2 puff IH Q 4-6H PRN Last Admin: 02/10/21 10:08 Dose: 2 puff Documented by: Alprazolam (Alprazolam 0.5 Mg Tablet) 0.5 mg PO BEDTIME [facility] Last Admin: 02/09/21 20:39 Dose: 0.5 mg Documented by: Amlodipine Besylate (Amlodipine Besylate 5 Mg Tablet) 5 mg PO BEDTIME MONE Last Admin: 02/09/21 20:39 Dose: 5 mg Documented by: Aspirin (Aspirin 81 Mg Tab.Chew) 81 mg PO BEDTIME MONE Last Admin: 02/09/21 20:40 Dose: 81 mg Documented by: Calcium/Vitamin D (Calcium Carbonate/Vitamin D3 500 Mg/5 Mcg(200iu) 1 Each Tablet) 1 each PO DAILY MONE Last Admin: 02/10/21 08:50 Dose: 1 each Documented by: Citalopram Hydrobromide (Citalopram Hydrobromide 20 Mg Tablet) 20 mg PO BEDTIME [facility] Last Admin: 02/09/21 20:39 Dose: 20 mg Documented by: Clopidogrel Bisulfate (Clopidogrel Bisulfate 75 Mg Tablet) 75 mg PO BEDTIME [facility] Last Admin: 02/09/21 20:40 Dose: 75 mg Documented by: Fish Oil ([place]-3/Dha/Epa/Fish Oil 1,000 Mg Capsule) 1,000 mg PO DAILY [facility] Last Admin: 02/10/21 08:50 Dose: 1,000 mg Documented by: Levothyroxine Sodium (Levothyroxine Sodium 50 Mcg Tablet) 50 mcg PO DAILY@0630 [facility] Last Admin: 02/10/21 05:44 Dose: 50 mcg Documented by: Metoprolol Succinate (Metoprolol Succinate 25 Mg Tab.Er.24h) 25 mg PO BEDTIME [facility] Last Admin: 02/09/21 20:40 Dose: 25 mg Documented by: Nitroglycerin (Nitroglycerin 0.4 Mg Tab.Subl) 0.4 mg SL PRN PRN PRN Reason: Chest Pain Non-Formulary Medication (Cyanocobalamin (Vitamin B-12)) 500 mcg PO DAILY [facility] Last Admin: 02/10/21 08:50 Dose: Not Given Documented by: Non-Formulary Medication (Fluticasone Furoate-Vilanterol [Breo Ellipta]) 1 each IH DAILY [facility] Last Admin: 02/10/21 08:50 Dose: 1 each Documented by: Oxycodone/Acetaminophen (Oxycodone/Acetaminophen 10/325 Mg Tablet) 1 tab PO Q8HR [facility] Last Admin: 02/10/21 05:43 Dose: 1 tab Documented by: Pantoprazole Sodium (Pantoprazole Sodium 40 Mg Tablet.Dr) 40 mg PO QDAC [facility] Last Admin: 02/10/21 05:43 Dose: 40 mg Documented by: Potassium Chloride (Potassium Chloride 20 Meq Tab) 20 meq PO DAILYWM [facility] Last Admin: 02/10/21 08:50 Dose: 20 meq Documented by: Prednisone (Prednisone 10 Mg Tablet) 10 mg PO BIDWM [facility] TAKE DIRECTED (SEE RX) Last Admin: 02/10/21 08:50 Dose: 10 mg Documented by: Omnicef 300 mg PO BID [facility] for 10 DAYS (RX) Ropinirole HCl (Ropinirole Hcl 0.25 Mg Tablet) 0.5 mg PO BEDTIME [facility] Last Admin: 02/09/21 20:39 Dose: 0.5 mg Documented by: Rosuvastatin Calcium (Rosuvastatin Calcium 10 Mg Tablet) 10 mg PO BEDTIME [facility] Last Admin: 02/09/21 20:39 Dose: 10 mg Documented by: Tizanidine HCl (Tizanidine Hcl 4 Mg Tablet) 4 mg PO TID PRN PRN Reason: Spasms IPRATROPIUM-ALBUTEROL 3 ML VIAL IN NEBULIZER TID ALLERGIES No Known Allergies Allergy (Verified 02/06/21 15:45) DISCONTINUED MEDICATIONS NONE NEW PRESCRIPTIONS: OMNICEF 300 MG BID FOR 10 DAYS PREDNISONE 10 MG BID FOR 5 DAYS, THEN DAILY FOR 2 DAYS SMOKING: ENCOURAGED TO STOP SMOKING DISEASE SPECIFIC EDUCATION: SMOKING CESSATION USE OF ORAL STEROIDS AND RISK OF GI IRRITATION, BONE DEMINERALIZATION USE OF NEBULIZER TREATMENTS AND OXYGEN APPOINTMENT FOR ECHOCARDIOGRAM MD APPOINTMENT LAB REVIEW: 02/10/21 04:55 02/10/21 04:55 02/10/21 04:55: Sodium 138.7, Potassium 4.39, Chloride 105.1, Carbon Dioxide 33.3 H, Anion Gap 4.69, BUN 24.3 H, Creatinine 0.68, Estimated GFR (MDRD) 86.00, BUN/Creatinine Ratio 35.73, Glucose 105.5, Calcium 8.76, Total Bilirubin 0.28, AST 22.0, ALT 15.9, Alkaline Phosphatase 36.6 L, Total Protein 5.94 L, Albumin 3.21 L, Globulin 2.73, Albumin/Globulin Ratio 1.17 02/10/21 04:55: WBC 8.61, RBC 4.18 L, Hgb 12.7, Hct 38.6, MCV 92.3, MCH 30.4, MCHC 32.9, RDW Coeff of Melody 14.2, Plt Count 149, Immature Gran % (Auto) 1.0, Neut % (Auto) 66.1, Lymph % (Auto) 21.1, [place] % (Auto) 11.7 H, Eos % (Auto) 0.0, Baso % (Auto) 0.1, Neut # (Auto) 5.7, Lymph # (Auto) 1.8, [place] # (Auto) 1.0, Eos # (Auto) 0.0, Baso # (Auto) 0.0, Immature Gran # (Auto) 0.1 02/08/21 04:55: Thyroxine (T4) 6.5 PLAN: DISCHARGE HOME DIET: REGULAR ACTIVITY: RESUME ACTIVITY TOLERATED USE OXYGEN AT 3 LITERS AT NIGHT AND DURING THE DAY USE NEBULIZER TREATMENTS AT LEAST THREE TIMES A DAY UNTIL SEEN IN OFFICE AN APPOINTMENT IS SCHEDULED WITH DR. DOMINGUEZ/OSITO BRADEN APRN ON January AT 8:45 AM YOU ARE SCHEDULED FOR AN OUTPATIENT ECHOCARDIOGRAM TO BE DONE BY DR. DOMINGUEZ ON February AT 11 AM PLEASE COME TO OUTPATIENT REGISTRATION AT [facility] ON THE DAY OF THE TESTING CODE STATUS: DO NOT RESUSCITATE MRS. HUANG IS ALERT AND ORIENTED X 4. SHE IS AGREEABLE TO PLANS FOR DISCHARGE HOME TODAY. SHE LIVES WITH HER . SHE IS INDEPENDENT WITH ACTIVITIES OF DAILY LIVING. SHE IS AMBULATORY IN THE ROOM WITH USE OF OXYGEN. MRS. HUANG INTERMITTENTLY REMOVES OXYGEN DURING THE DAY, BUT DOES CONSISTENTLY WEAR AT NIGHT. SHE HAS OXYGEN, A NEBULIZER AND C-PAP FOR HER USE AT HOME. HYDRATION STATUS IS IMPROVED. MEAL INTAKES ARE GOOD AT 25-100%. MRS. HUANG IS CONTINENT OF BOWEL AND BLADDER. SKIN IS INTACT. SCATTERED BRUISING IS NOTED TO THE UPPER EXTREMITIES. MD OSITO LEWIS, [employer]
--- NOTE | 2021-02-10 13:43 | PN ---
DATE OF SERVICE: 02/07/21 SUBJECTIVE: 70-year-old white female hospitalized with right lower lobe pneumonia. The patient says she is feeling better, coughing much less. REVIEW OF SYSTEMS: CONSTITUTIONAL: No night sweats. No fatigue, malaise, lethargy. No fever or chills. HEENT: Eyes: No visual changes. No eye pain. No eye discharge. ENT: No runny nose. No epistaxis. No sinus pain. No sore throat. No odynophagia. No congestion. RESPIRATORY: No cough, no congestion. No hemoptysis. No shortness of breath. CARDIOVASCULAR: No angina symptoms. No CHF symptoms. No atypical chest pain for CAD. No palpitations. No PND. No orthopnea. GASTROINTESTINAL: Appetite has improved. No abdominal pain. No nausea or vomiting. No diarrhea or constipation. No hematemesis. No hematochezia. GENITOURINARY: No urgency. No frequency. No dysuria. No hematuria. No obstructive symptoms. No discharge. No pain. No significant abnormal bleeding. MUSCULOSKELETAL: No musculoskeletal pain; no joint swelling. NEUROLOGICAL: No headache. No neck pain. No syncope. No seizures. No dizziness. PSYCHIATRIC: Not anxious. No depression. No suicidal thoughts. No homicidal thoughts. SKIN: No rash. No lesions. No wounds. ENDOCRINE: No unexplained weight loss. No weight gain. HEMATOLOGIC/LYMPHATIC: No anemia. No purpura. No petechiae. No prolonged or excessive bleeding. No palpable lymph nodes. PHYSICAL EXAMINATION: VITAL SIGNS: Temperature 97.1, pulse 55, respiratory rate 16, BP 109/63, pulse ox 97%. HEENT: Head normocephalic, atraumatic. Eyes: Extraocular muscles are intact. Pupils are equal, round and reactive to light and accommodation. Ears: No lesions. Nose appeared normal. Throat: No exudate or erythema. NECK: Supple. No JVD, no carotid bruit. No lymphadenopathy or thyromegaly. LUNGS: Decreased breath sounds but clear to auscultation. Percussion note normal. Chest symmetrical. HEART: S1, S2, no S3. No murmurs. No cyanosis or clubbing. No ascites. Pulses: Dorsalis pedis and posterior tibial pulses +1 to +2 bilaterally. ABDOMEN: Soft. Nontender. Bowel sounds active. No CVA tenderness. No mass felt. EXTREMITIES: No edema. Full range of motion of all extremities, equal. NEUROLOGIC: No focal deficit. Cranial nerves II through XII are grossly intact. No headache. No double vision. SKIN: Not dry. Intact. Turgor - normal. LYMPHATIC: No palpable lymph nodes/no lymphedema. MUSCULOSKELETAL: Normal joints with no swelling. Muscle tone is normal. LABS: Hemoglobin 14.4, hematocrit 43, WBC 5,800, normal differential. Creatinine 0.8, BUN 25, potassium 5. The patient is Covid negative. ASSESSMENT: 1. LOWER LOBE PNEUMONIA 2. CHRONIC LUNG DISEASE 3. DYSLIPIDEMIA 4. HYPERTENSION 5. HYPOTHYROIDISM 6. DEPRESSION PLAN: 1. Continue all the medication as before. 2. Continue Rocephin and Zithromax. 3. Continue steroids. 4. Continue inhalers. 5. Hyperglycemia is going to be controlled with sliding scale. CONDITION: Improving. TIME SPENT: More than 30 minutes. Plan and coordination of the patient's care discussed in the presence of nurse. LILA
--- NOTE | 2021-02-12 14:18 | PN ---
DATE OF SERVICE: 02/09/21 SUBJECTIVE: The patient was seen and examined with the nurse practitioner. The patient's condition is improved. Her pneumonia clinically has resolved. Will continue steroids, antibiotics, nebs. Condition is stable. TIME SPENT: More than 30 minutes. Plan and coordination of the patient's care discussed in the presence of nurse. LILA
--- NOTE | 2021-02-12 14:34 | PN ---
DATE OF SERVICE: 02/10/21 SUBJECTIVE: The patient was seen and examined with the nurse practitioner. The patient was hospitalized with pneumonia. Condition has improved remarkably. Coughing is much less. She has chronic lung disease. She will undergo echocardiographic examination of her heart as an outpatient. She has shortness of breath and she wonders about her heart. The main problem is chronic lung disease with shortness of breath with sedentary lifestyle. The patient is stable at the time of discharge. TIME SPENT: More than 30 minutes. Plan and coordination of the patient's care discussed in the presence of nurse. LILA
--- NOTE | 2021-02-12 14:37 | PN ---
BILLING 02/06/21 ADMISSION DAY LEVEL 5 02/07/21 INTERMEDIATE 02/08/21 INTERMEDIATE 02/09/21 INTERMEDIATE 02/10/21 D IN DISCHARGE MTDD
--- NOTE | 2021-02-13 13:02 | HP ---
DATE OF SERVICE: 02/06/21 REASON FOR HOSPITALIZATION/HISTORY OF PRESENT ILLNESS: This is a 70-year-old white female with a long history of COPD presents to the emergency room with shortness of breath, cough and congestion. She has been suffering for the past two weeks. She is now having some pleuritic type pain. PAST MEDICAL HISTORY: Severe COPD Smoker Hypertension Hypothyroidism Dyslipidemia Generalized osteoarthritis Restless leg syndrome Hiatal hernia Sleep apnea Obstructive sleep apnea Degenerative disk disease of the L-spine Coronary artery disease PAST SURGICAL HISTORY: Includes stent placement Hysterectomy Bladder surgery REVIEW OF SYSTEMS: CONSTITUTIONAL: No night sweats. No fatigue, malaise, lethargy. No fever or chills. HEENT: Eyes: No visual changes. No eye pain. No eye discharge. ENT: No runny nose. No epistaxis. No sinus pain. No sore throat. No odynophagia. No ear pain. No congestion. RESPIRATORY: Positive for cough, shortness of breath. Right pleuritic pain. No hemoptysis. CARDIOVASCULAR: No angina symptoms. No CHF symptoms. No atypical chest pain for CAD. No palpitations. No PND. No orthopnea. GASTROINTESTINAL: No abdominal pain. No nausea or vomiting. No diarrhea or constipation. No hematemesis. No hematochezia. GENITOURINARY: No urgency. No frequency. No dysuria. No hematuria. No obstructive symptoms. No discharge. No pain. No significant abnormal bleeding. MUSCULOSKELETAL: No musculoskeletal pain. No joint swelling. No arthritis. NEUROLOGICAL: No headache. No neck pain. No syncope. No seizures. No dizziness. PSYCHIATRIC: Not anxious. No depression. No suicidal thoughts. No homicidal thoughts. SKIN: No rash. No lesions. No wounds. ENDOCRINE: No unexplained weight loss. No weight gain. HEMATOLOGIC/LYMPHATIC: No anemia. No purpura. No petechiae. No prolonged or excessive bleeding. No palpable lymph nodes. PERSONAL/FAMILY/SOCIAL HISTORY: She is a current heavy everyday smoker. No alcohol or ilicit drug use. She lives at home with her . MEDICATIONS: Rosuvastatin 10 mg p.o. bedtime Nitroglycerin 0.4 mg p.o. p.r.n. Metoprolol 25 mg p.o. bedtime Clopidogrel 75 mg p.o. bedtime Aspirin 81 mg p.o. bedtime Alprazolam 0.5 mg p.o. bedtime Tizanidine 4 mg p.o. t.i.d. p.r.n. Ropinirole 0.5 mg p.o. bedtime Oxycodone-Acetaminophen 10-325 mg one tab p.o.q.8hr [place] 6-vrh-bwn-fish oil 300-1,000 mg capsule one each p.o. daily Albuterol Sulfate 2.5 mg/3 mL one vial NEB RT q.8h p.r.n. Ipratropium-Albuterol 0.5 mg-3 mg INH q.6hr p.r.n. Citalopram 20 mg p.o. bedtime Albuterol Sulfate two puff INH q.4-6h p.r.n. Cyanocobalamin 500 mcg p.o. daily Pantoprazole 40 mg p.o. q.d a.c. Amlodipine 5 mg p.o. bedtime Calcium carbonate-vitamin D3 200 unit tablet one tablet p.o. daily Levothyroxine 50 mcg p.o. daily Potassium chloride 20 mEq p.o. daily Fluticasone Furoate-vilanterol (Breo-Ellipta) one each INH daily ALLERGIES: NKDA PHYSICAL EXAMINATION: VITAL SIGNS: Temperature 97.4, heart rate 74, respirations 20, blood pressure 115/74, pulse ox 90% on room air. HEENT: Head normocephalic, atraumatic. Eyes: Extraocular muscles are intact. Pupils are equal, round and reactive to light and accommodation. Ears: No lesions. Nose appeared normal. Throat: No exudate or erythema. NECK: Supple. No JVD, no carotid bruit. No lymphadenopathy or thyromegaly. LUNGS: Diminished breath sounds bilaterally with inspiratory and expiratory bilateral wheezing. Percussion note normal. Chest symmetrical. HEART: S1, S2, no S3. No murmur. No cyanosis or clubbing. No ascites. Pulses: Dorsalis pedis and posterior tibial pulses +1 to +2 bilaterally. ABDOMEN: Soft. Nontender. Bowel sounds active. No CVA tenderness. No mass felt. EXTREMITIES: No edema. Full range of motion of all extremities, equal. NEUROLOGIC: No focal deficit. Cranial nerves II through XII are grossly intact. No headache, no double vision or headache. SKIN: Not dry. Intact. Turgor - normal. LYMPHATIC: No palpable lymph nodes/no lymphedema. MUSCULOSKELETAL: Normal joints with no swelling. Muscle tone is normal. Chest x-ray shows opacity in the right mid to lower lung, large hiatal hernia. Chest CT confirms right lower lobe pneumonia with consolidation, scattered emphysema, large hiatal hernia. ABGs on room air: pH 7.48, pc02 37, p02 65, bicarb 27. 02 sat 93.9. White count 12.18. Hemoglobin 14.2, hematocrit 41.3, platelets 171. Sodium 137, potassium 3.4, BUN 15, creatinine 0.96, glucose 105. Troponin less than 0.01. Respiratory panel by PCR is negative. Rapid flu is negative. Urine is negative. ASSESSMENT: 1. RIGHT LOBAR PNEUMONIA 2. SHORTNESS OF BREATH 3. SEVERE COPD PLAN: 1. We will admit. 2. Routine telemetry orders. 3. CBC, CMP daily. 4. Continue home medications. 5. Rocephin 1 gm IV daily. 6. Zithromax 500 mg IV daily for 3 days. 7. Solu-Cortef 125 mg IV q.8. 8. Normal Saline IV at 75 cc/hr. 9. Regular diet. 10. Oxygen at 1 to 2L. 11. Repeat ABGs tomorrow on room air. 12. Albuterol two puffs t.i.d. MONE. 13. Will follow closely. TIME SPENT: More than 70 minutes. MTDD
--- NOTE | 2021-02-13 13:16 | DS ---
DATE OF SERVICE: 02/10/21 FINAL DIAGNOSIS: 1. PNEUMONIA, RLL 2. SEVERE COPD 3. HYPERTENSION 4. HYPOTHYROIDISM 5. DYSLIPIDEMIA 6. GENERALIZED OSTEOARTHRITIS 7. RESTLESS LEG SYNDROME 8. HIATAL HERNIA, LARGE 9. SLEEP APNEA 10. DJD SPINE (PAIN MANAGEMENT) 11. CURRENT EVERY DAY SMOKER 12. BLADDER SUSPENSION 13. HYSTERECTOMY 14. CARDIAC STENT 15. ECHOCARDIOGRAM 08/2017, LVEF 47%, LVH WITH ENLARGED LEFT ATRIAL CAVITY LAST VITALS Temp Pulse Resp BP Pulse Ox 97.6 F 58 L 20 137/81 89 L 02/10/21 05:45 02/10/21 05:45 02/10/21 05:45 02/10/21 05:45 02/10/21 10:00 DISCHARGE INSTRUCTIONS: 1. AN APPOINTMENT IS SCHEDULED WITH DR. DOMINGUEZ/OSITO BRADEN APRN ON January AT 8:45 AM. 2. YOU ARE SCHEDULED FOR AN OUTPATIENT ECHOCARDIOGRAM TO BE DONE BY DR. DOMINGUEZ ON February AT 11 AM. 3. PLEASE COME TO OUTPATIENT REGISTRATION AT [facility] ON THE DAY OF THE TESTING. MEDICATIONS AT DISCHARGE: Albuterol Sulfate (Albuterol Sulfate (Ventolin Hfa) 18 Gm 1 Puff With Spacer) 2 puff IH Q 4-6H PRN Last Admin: 02/10/21 10:08 Dose: 2 puff Documented by: Alprazolam (Alprazolam 0.5 Mg Tablet) 0.5 mg PO BEDTIME [facility] Last Admin: 02/09/21 20:39 Dose: 0.5 mg Documented by: Amlodipine Besylate (Amlodipine Besylate 5 Mg Tablet) 5 mg PO BEDTIME [facility] Last Admin: 02/09/21 20:39 Dose: 5 mg Documented by: Aspirin (Aspirin 81 Mg Tab.Chew) 81 mg PO BEDTIME [facility]ONE Last Admin: 02/09/21 20:40 Dose: 81 mg Documented by: Calcium/Vitamin D (Calcium Carbonate/Vitamin D3 500 Mg/5 Mcg(200iu) 1 Each Tablet) 1 each PO DAILY [facility] Last Admin: 02/10/21 08:50 Dose: 1 each Documented by: Citalopram Hydrobromide (Citalopram Hydrobromide 20 Mg Tablet) 20 mg PO BEDTIME [facility] Last Admin: 02/09/21 20:39 Dose: 20 mg Documented by: Clopidogrel Bisulfate (Clopidogrel Bisulfate 75 Mg Tablet) 75 mg PO BEDTIME [facility] Last Admin: 02/09/21 20:40 Dose: 75 mg Documented by: Fish Oil ([place]-3/Dha/Epa/Fish Oil 1,000 Mg Capsule) 1,000 mg PO DAILY [facility] Last Admin: 02/10/21 08:50 Dose: 1,000 mg Documented by: Levothyroxine Sodium (Levothyroxine Sodium 50 Mcg Tablet) 50 mcg PO DAILY@0630 [facility] Last Admin: 02/10/21 05:44 Dose: 50 mcg Documented by: Metoprolol Succinate (Metoprolol Succinate 25 Mg Tab.Er.24h) 25 mg PO BEDTIME [facility] Last Admin: 02/09/21 20:40 Dose: 25 mg Documented by: Nitroglycerin (Nitroglycerin 0.4 Mg Tab.Subl) 0.4 mg SL PRN PRN PRN Reason: Chest Pain Non-Formulary Medication (Cyanocobalamin (Vitamin B-12)) 500 mcg PO DAILY [facility] Last Admin: 02/10/21 08:50 Dose: Not Given Documented by: Non-Formulary Medication (Fluticasone Furoate-Vilanterol ) 1 each IH DAILY [facility] Last Admin: 02/10/21 08:50 Dose: 1 each Documented by: Oxycodone/Acetaminophen (Oxycodone/Acetaminophen 10/325 Mg Tablet) 1 tab PO Q8HR [facility] Last Admin: 02/10/21 05:43 Dose: 1 tab Documented by: Pantoprazole Sodium (Pantoprazole Sodium 40 Mg Tablet.Dr) 40 mg PO QDAC [facility] Last Admin: 02/10/21 05:43 Dose: 40 mg Documented by: Potassium Chloride (Potassium Chloride 20 Meq Tab) 20 meq PO DAILYWM [facility] Last Admin: 02/10/21 08:50 Dose: 20 meq Documented by: Prednisone (Prednisone 10 Mg Tablet) 10 mg PO BIDWM MONE TAKE DIRECTED (SEE RX) Last Admin: 02/10/21 08:50 Dose: 10 mg Documented by: Omnicef 300 mg PO BID [facility] for 10 DAYS (RX) Ropinirole HCl (Ropinirole Hcl 0.25 Mg Tablet) 0.5 mg PO BEDTIME [facility] Last Admin: 02/09/21 20:39 Dose: 0.5 mg Documented by: Rosuvastatin Calcium (Rosuvastatin Calcium 10 Mg Tablet) 10 mg PO BEDTIME [facility] Last Admin: 02/09/21 20:39 Dose: 10 mg Documented by: Tizanidine HCl (Tizanidine Hcl 4 Mg Tablet) 4 mg PO TID PRN PRN Reason: Spasms IPRATROPIUM-ALBUTEROL 3 ML VIAL IN NEBULIZER TID NEW PRESCRIPTIONS: OMNICEF 300 MG BID FOR 10 DAYS PREDNISONE 10 MG BID FOR 5 DAYS, THEN DAILY FOR 2 DAYS DISCONTINUED MEDICATIONS: NONE DIET INSTRUCTIONS: REGULAR ACTIVITY: RESUME ACTIVITY TOLERATED USE OXYGEN AT 3 LITERS AT NIGHT AND DURING THE DAY USE NEBULIZER TREATMENTS AT LEAST THREE TIMES A DAY UNTIL SEEN IN OFFICE SMOKING: ENCOURAGED TO STOP SMOKING DISEASE SPECIFIC EDUCATION: SMOKING CESSATION USE OF ORAL STEROIDS AND RISK OF GI IRRITATION, BONE DEMINERALIZATION USE OF NEBULIZER TREATMENTS AND OXYGEN APPOINTMENT FOR ECHOCARDIOGRAM MD APPOINTMENT HOSPITAL COURSE: This 70-year-old white female with a long history of severe COPD presented to the emergency room with cough and shortness of breath. She had been coughing for a few weeks. ABGs were abnormal. Chest x-ray showed that she had right lower lobe pneumonia. She was afebrile. White count was elevated. She was admitted, placed on Rocephin and Zithromax IV along with IV Solu-Cortef. Over the course of the next several days, she did steadily improve. She still does have some wheezing however again she does have severe COPD. Repeat chest x-ray today showed resolution of pneumonia. The pneumonia previously was present on both chest x-ray and chest CT. She has 02 at home along with nebulizer treatment. She will go home on Omnicef 300 mg b.i.d. for the next 7 days along with Prednisone 10 mg b.i.d. for the next 5 days and one daily for two days. She is to use a nebulizer treatment, Albuterol at home three times a day. Again, she has oxygen at home. She has been eating well, up and about, again afebrile. Shortness of breath has steadily improved. She initially had some pleuritic pain which has also resolved. Will discharge her today in stable condition and followup with her later in the week at the office. Also to be noted, she did have some cardiomegaly noted on chest x-ray. Her last echo was in 2016. She is scheduled for an echo on 02/13 to be done as an outpatient with Dr. Dominguez. TIME SPENT: More than [address] [facility]
== END 2021-02-10 14:00 | disposition home or self-care (01) | DRG 204 ==
LOC: ED 15:23 → MEDSURG A 19:38
PROVIDERS: ADMIT Internal Medicine; ATTEND Internal Medicine
DX: M19.90 Unspecified osteoarthritis, unspecified site; E78.5 Hyperlipidemia, unspecified; G47.30 Sleep apnea, unspecified; I10 Essential (primary) hypertension; R05 Cough; G25.81 Restless legs syndrome; J44.9 Chronic obstructive pulmonary disease, unspecified; R06.02 Shortness of breath; E03.9 Hypothyroidism, unspecified; R07.9 Chest pain, unspecified

== ENCOUNTER 2023-03-26 15:35 | Inpatient (IN) ==
[2023-03-26] MEDS ORDERED: SOLU-MEDROL 125 MG IVP ONE (15:53)
[2023-03-26] MEDS ORDERED: ZITHROMAX PO ONE (15:53)
[2023-03-26 15:54] LABS: ABG O2 HGB 82.5 % (95-100); ABG PH 7.41 (7.35-7.45); BEecf 2.7 (-2.0-3.0); COHb 3.5 (0.5-1.5); HCO3 27.3 (21-28); MetHb 1.2 (0-1.5); TCO2 28.6 (19-24); sO2 86.7 % (94-98); tHb 14.8 g/dl (11.7-17.4)
[2023-03-26] MEDS ORDERED: MAGNESIUM SULFATE 1 GM/100 ML D5W 2 GM/200 ML BAG IV STA (15:55)
[2023-03-26] MEDS ORDERED: TYLENOL PO ONE (15:56)
--- NOTE | 2023-03-26 15:58 | ED.PDOC ---
General ED Provider: Dr. TEODORO REYES DO Chief Complaint: Shortness of Air Stated Complaint: 72 YOF with PMHx of CHF and COPD who was BIBEMS with chief complaint of worsening SOB and increasing supplemental O2 requirement over the last several days. Patient wears supplemental O2 @ 2 lpm via NC PRN due to her COPD but states she has had to use it continuously and use a higher flow rate than her baseline. Patient also admits to associated cough, fever, and chills. Denies syncope, headache, chest pain, palpitations, N/V/D, dysuria, flank pain, or new focal weakness/numbness. No other associated symptoms or modifying factors at this time. Time Seen by Provider: 03/26/23 15:53 Mode of Arrival: Ambulance Information Source: Patient Primary Care Provider: SIA DOMINGUEZ MD Nursing and Triage Documentation Reviewed and Agree: Yes Does patient meet sepsis criteria?: Yes If yes, has appropriate treatment been initiated?: Yes System Inflammatory Response Syndrome: Temp 101F or Greater and Resp >20/Minute Sepsis Protocol: For patient's 13 years and over: Temp is 96.8 and below OR 101 and greater Pulse >90 BPM Resp >20/minute Acutely Altered Mental Status Are patient's symptoms suggestive of a new infection, such as: -Pneumonia -Skin, Soft Tissue -Endocarditis -UTI -Bone, Joint Infection -Implantable Device -Acute Abdominal Infection -Wound Infection -Meningitis -Blood Stream Catheter Infection -Unknown Review of Systems Review Of Systems Constitutional: Reports Chills and Fever All Other Systems: Reviewed and Negative (except for mentioned in HPI above) [facility] Medical History Family History FATHER Diabetes SISTER Emphysema of lung Cervical cancer BROTHER Emphysema of lung SISTER COPD (chronic obstructive pulmonary disease) BROTHER COPD (chronic obstructive pulmonary disease) Social History Smoking and tobacco status: Current every day smoker Tobacco type: cigarettes Smoking packs per day: 0.75 Smoking cigarettes per day: 15.0 Years smoked: 55 Smoking pack-years: 41.25 Tobacco: How many years used: 55 Quit status: considering quitting Second hand smoke exposure: No Smoking risk assessment performed: No Alcohol intake: never Substance use type: does not use Adopted: No Caregiver/support person: Yes Foster care: No Household members: spouse Housing: house Marital status: M Lives independently: Yes Number of children: 3 Number of grandchildren: 5 Current occupational status: retired History of recent travel: No Current gender identity: female Seatbelt use: always Current diet type/program: regular Water heater temperature set < 120 degrees: Yes Working smoke detector in home: Yes Fire extinguisher in home: No Carbon monoxide detector in home: No What type of physical activity do you participate in?: walking Surgical History Female Reproductive History Menstrual Hx Hysterectomy: Yes Hx Tubal Ligation: No Physical Exam Physical Exam Appearance: Reports Well-appearing, No pain distress and Well-nourished; Denies Ill-appearing Ill-appearing: None Pain Distress: None Eyes: Reports SUNDEEP, EOMI, Conjunctiva clear and Other (no scleral icterus) ENT: Reports Ears normal and Nose normal; Denies Rhinorrhea Neck: Supple Respiratory: Reports Airway patent, Crackles (bilateral bases on auscultation) and Wheezes (scattered) Cardiovascular: Reports RRR, Pulses normal, No rub and No murmur; Denies Murmur GI/: Reports Soft, Nontender and No masses Musculoskeletal: Reports Normal strength, ROM intact and No edema Skin: Reports Warm, Dry and Normal color Neurological: Reports Sensation intact, Motor intact and Other (GCS15, AAOx4, grossly nonfocal) Psychiatric: Reports Affect appropriate and Mood appropriate Interpretation EKG Interpretation Time of EKG #1: 04:15 Rate: Normal Rhythm: Sinus Ectopy: None ST Segment: Normal Interpretation: NSR w/LBBB. No evidence of STEMI on my independent interpretation of EKG Critical Care Note Critical Care Note Total Critical Care Time (mins): 30 Course Course 03/26/23 16:10 03/26/23 16:10 Orders, Labs, Meds: Lab Review 03/26/23 03/26/23 15:50 16:10 WBC 13.48 H RBC 4.61 Hgb 14.1 Hct 43.6 MCV 94.6 MCH 30.6 MCHC 32.3 RDW Coeff of Melody 13.4 Plt Count 158 Immature Gran % (Auto) 0.3 Neut % (Auto) 81.4 H Lymph % (Auto) 5.8 L [place] % (Auto) 12.1 H Eos % (Auto) 0.1 Baso % (Auto) 0.3 Neut # (Auto) 11.0 H Lymph # (Auto) 0.8 [place] # (Auto) 1.6 Eos # (Auto) 0.0 Baso # (Auto) 0.0 Immature Gran # (Auto) 0.0 Puncture Site Rrad Base Excess 2.7 O2 Saturation 86.7 L ABG pH 7.41 ABG pCO2 43.0 ABG pO2 52.0 L* ABG HCO3 27.3 ABG Total CO2 28.6 H Hugo Test Pos Hemoglobin 1.2 Oxyhemoglobin 82.5 L Carboxyhemoglobin 3.5 H Total Hemoglobin 14.8 FiO2 % 21.0 Sodium 133.8 L Potassium 3.99 Chloride 101.9 Carbon Dioxide 25.2 Anion Gap 10.69 BUN 20.0 H Creatinine 0.83 Estimated GFR (MDRD) 68.00 BUN/Creatinine Ratio 24.09 Glucose 93.1 Lactic Acid 0.71 Calcium 8.59 Total Bilirubin 0.92 AST 21.6 ALT 11.6 Alkaline Phosphatase 56.2 NT-Pro-B Natriuret Pep 506 H Total Protein 7.27 Albumin 4.09 Globulin 3.18 Albumin/Globulin Ratio 1.28 Procalcitonin 0.05 SARS CoV-2 RNA Rapid LESLEE Negative Orders Category Date Time Status ADMIT PATIENT INPATIENT .TO [facility] (MONITORED BED) ADMISSION 03/26/23 17:04 Active ABG DRAW REQUEST Stat CARDIO 03/26/23 15:49 Completed EKG-(ED ONLY) Stat CARDIO 03/26/23 16:08 Completed TELEMETRY MONITORING TELE CARE 03/26/23 17:04 Active ABG COOX Stat LAB 03/26/23 15:50 Completed BLOOD CULTURE Stat LAB 03/26/23 16:24 Received CBC W/ AUTO DIFF Stat LAB 03/26/23 16:10 Completed CMP [COMPREHENSIVE METABOLIC PANEL] Stat LAB 03/26/23 16:10 Completed ED PROBNP [NT-PROBNP(ED)] Stat LAB 03/26/23 16:10 Completed LACTIC ACID Stat LAB 03/26/23 16:10 Completed PROCALCITONIN Stat LAB 03/26/23 16:10 Completed Acetaminophen [Tylenol] MEDS 03/26/23 15:56 Discontinued 650 mg PO ONCE ONE Azithromycin [Zithromax] MEDS 03/26/23 15:53 Discontinued 500 mg PO ONCE ONE Ceftriaxone/D5w 1 gm Premix [Rocephin 1 gm/50 ml D5w] MEDS 03/26/23 16:57 Discontinued 1 gm in 50 ml IV ONCE Ipratropium/Albuterol Neb [Duoneb] MEDS 03/26/23 16:05 Discontinued 3 ml NEB .STK-MED ONE Ipratropium/Albuterol Neb [Duoneb] MEDS 03/26/23 16:03 Discontinued 3 ml NEB ONCE ONE Magnesium Sulfate Bag [Magnesium Sulfate 1 gm/100 ml MEDS 03/26/23 15:55 Discontinued D5w] 2 gm in 200 ml IV ONCE Methylprednisolone Sod Succ/Pf [Solu-Medrol 125 mg] MEDS 03/26/23 15:53 Discontinued 125 mg IVP ONCE ONE Sodium Chloride 0.9% [Sodium Chloride] 1,000 ml MEDS 03/26/23 15:55 Discontinued IV BOLUS CXR [CHEST, 1V AP ONLY] Stat RADS 03/26/23 15:53 Completed Medications Generic Name Dose Route Start Last Admin Trade Name Freq PRN Reason Stop Dose Admin Acetaminophen 650 mg 03/26/23 18:04 Acetaminophen 325 Mg Tablet PO Q4-6H PRN Mild/Moderate Pain Albuterol Sulfate 2.5 mg 03/27/23 00:00 Albuterol Sulfate 0.083% Vial.Neb NEB RTQ6H MONE CEFTRIAXONE/D5W 1 GM PREMIX 1 gm in 50 mls @ 75 mls/hr 03/27/23 09:00 Rocephin 1 Gm/50 Ml D5w IV 03/30/23 08:59 DAILY MONE Azithromycin 500 mg/ Sodium 250 mls @ 125 mls/hr 03/27/23 09:00 Chloride IV 03/29/23 10:59 DAILY MONE Sodium Chloride 1,000 mls @ 1,000 mls/hr 03/26/23 18:30 Sodium Chloride IV Q0H MONE Sodium Chloride 250 mls @ 250 mls/hr 03/26/23 18:17 Sodium Chloride IV 03/26/23 19:16 BOLUS ONE Ipratropium Brock 2.5 ml 03/27/23 00:00 Ipratropium Brock 0.02% Vial.Neb NEB RTQ6H MONE Methylprednisolone Sodium Succinate 40 mg 03/26/23 21:00 Methylprednisolone Sod Succ/Pf 40 Mg/Ml Vial IVP Q8HR MONE Ondansetron HCl 4 mg 03/26/23 18:21 Ondansetron Hcl/Pf 4 Mg/2 Ml Sdv IVP Q6H PRN Nausea / Vomiting Discontinued Medications Generic Name Dose Route Start Last Admin Trade Name Freq PRN Reason Stop Dose Admin Acetaminophen 650 mg 03/26/23 15:56 03/26/23 16:09 Acetaminophen 325 Mg Tablet PO 03/26/23 15:57 650 mg ONCE ONE Administration Albuterol/Ipratropium 3 ml 03/26/23 16:03 03/26/23 16:09 Ipratropium/Albuterol Vial.Lexx [facility] 03/26/23 16:04 3 ml ONCE ONE Administration Azithromycin 500 mg 03/26/23 15:53 03/26/23 16:10 Azithromycin 250 Mg Tablet PO 03/26/23 15:54 500 mg ONCE ONE Administration Fentanyl Citrate 50 mcg 03/26/23 18:15 Fentanyl 50 Mcg/Ml Sdv IVP 03/26/23 18:16 ONCE ONE Magnesium Sulfate/Dextrose 2 gm in 200 mls @ 100 mls/hr 03/26/23 15:55 03/26/23 16:11 Magnesium Sulfate 1 Gm/100 Ml D5w IV 03/26/23 17:54 100 mls/hr ONCE STA Administration Sodium Chloride 1,000 mls @ 1,000 mls/hr 03/26/23 15:55 03/26/23 17:25 Sodium Chloride IV 03/26/23 16:54 Not Given BOLUS STA CEFTRIAXONE/D5W 1 GM PREMIX 1 gm in 50 mls @ 75 mls/hr 03/26/23 16:57 03/26/23 17:10 Rocephin 1 Gm/50 Ml D5w IV 03/26/23 17:36 75 mls/hr ONCE ONE Administration Methylprednisolone Sodium Succinate 125 mg 03/26/23 15:53 03/26/23 16:11 Methylprednisolone Sod Succ/Pf 125 Mg/2 Ml Vial IVP 03/26/23 15:54 125 mg ONCE ONE Administration Vital Signs: Temp Pulse Resp BP Pulse Ox 03/26/23 15:39 101.3 F H 78 22 H 143/67 H 85 L Discharge Plan Discharge Patient Disposition: ADMITTED INPATIENT Discharge Problem: Acute hypoxemic respiratory failure, Acute exacerbation of chronic obstructive pulmonary disease, Pneumonia Did you review [place] CELL [place] for ALL controlled substances?: No ED Provider: TEODORO REYES Physician Progress Note: []
[2023-03-26] MEDS ORDERED: DUONEB NEB ONE ×2 (16:03→16:05)
[2023-03-26] MEDS: SODIUM CHLORIDE 1,000 ML IV STA ×2 (16:11→17:25)
[2023-03-26 16:14] LABS: BASOPHILS % (AUTO) 0.3 % (0.0-3.0); EOSINOPHILS % (AUTO) 0.1 % (0.0-7.0); HEMATOCRIT 43.6 % (37.0-47.0); HEMOGLOBIN 14.1 g/dl (12.0-16.0); IMMATURE GRANULOCYTE % (AUTO) 0.3 % (0.0-5.0); LYMPHOCYTES # (AUTO) 0.8 K/uL (0.60-3.4); LYMPHOCYTES % (AUTO) 5.8 (10.0-50.0); MEAN CORPUSCULAR HEMOGLOBIN 30.6 pg (27.0-31.0); MEAN CORPUSCULAR HGB CONC 32.3 (31.8-35.4); MEAN CORPUSCULAR VOLUME 94.6 fl (81.0-99.0); MONOCYTES # (AUTO) 1.6 K/uL (0.4-2.0); MONOCYTES % (AUTO) 12.1 (0-10); NEUTROPHILS % (AUTO) 81.4 % (42.2-75.2); PLATELET COUNT 158 10^3/uL (140-440); RDW COEFFICIENT OF VARIATION 13.4 % (11.6-14.8); RED BLOOD COUNT 4.61 10^6/ul (4.20-5.40); WHITE BLOOD COUNT 13.48 K/ul (4.6-10.2)
[2023-03-26 16:30] LABS: ALANINE AMINOTRANSFERASE 11.6 U/L (0-35); ALBUMIN 4.09 g/dL (3.5-5.0); ALKALINE PHOSPHATASE 56.2 U/L (53-141); ASPARTATE AMINO TRANSFERASE 21.6 U/L (14-36); BILIRUBIN,TOTAL 0.92 mg/dL (0.2-1.3); CALCIUM 8.59 mg/dL (8.4-10.2); CARBON DIOXIDE 25.2 mmol/L (22-30.0); CHLORIDE 101.9 mmol/L (98-107); CREATININE 0.83 mg/dL (0.60-1.30); GLUCOSE 93.1 mg/dL (74-106); POTASSIUM 3.99 mmol/L (3.5-5.1); SODIUM 133.8 mmol/L (134.5-145); TOTAL PROTEIN 7.27 g/dL (6.3-8.2)
--- NOTE | 2023-03-26 16:40 | DI ---
EXAM: CHEST X-RAY ONE VIEW. HISTORY: Short of breath. COMPARISON: 10/16/2021 chest x-ray. FINDINGS: There are increased patchy opacities present within both lung bases with blunting of the c ostophrenic angles. Chronic bilateral interstitial lung markings and calcified granulomas are presen t. The cardiac silhouette is enlarged. There is no pulmonary edema or pneumothorax. No change in the o sseous structures. IMPRESSION: Nonspecific density in the lung bases which could represent atelectasis and/or pneumonia . There is a small bilateral pleural effusion. Cardiomegaly.
[2023-03-26] MEDS ORDERED: ROCEPHIN 1 GM/50 ML D5W 1 GM/50 ML BAG IV ONE (16:57)
[2023-03-26] MEDS ORDERED: TYLENOL PO PRN (18:04)
[2023-03-26 18:10] LABS: SARS COV-2 RNA RAPID NAAT NEGATIVE (NEGATIVE)
[2023-03-26] MEDS ORDERED: SUBLIMAZE IVP ONE (18:15)
[2023-03-26] MEDS ORDERED: SODIUM CHLORIDE 250 ML IV ONE (18:17)
[2023-03-26] MEDS ORDERED: ZOFRAN 4 MG/2 ML IVP PRN (18:21)
[2023-03-26 18:39] VITALS: BMI 31.6
[2023-03-26] MEDS: SODIUM CHLORIDE 1,000 ML IV SCH ×2 (19:00→20:40)
--- NOTE | 2023-03-26 20:35 | CT ---
EXAM: CTA CHEST HISTORY: Hypoxia COMPARISON: CT scan chest 02/07/2020 FINDINGS: Postcontrast helical imaging was obtained through the thorax utilizing 2.5-mm collimation. Sagittal and coronal reconstructions were imaged and reviewed.. Source images utilized create rota ting 3-D MIP images.. The thoracic inlet is unremarkable. The, prevascular pretracheal lymph nodes m easure upwards of 12 mm. By 913 mm right hilar lymph node 10 mm left hilar lymph node. The right-si ded subcarinal lymph nodes measure upwards of 13 mm. The heart is prominent with coronary artery zeinab cification. There is a pericardial effusion. There is no pulmonary embolus. There is moderately la rge hiatal hernia. Patchy consolidation is seen within the right middle lobe and right lower lobe. Emphysematous changes with scattered subpleural fibrosis.. Bone windows reveals no lytic or blastic lesions.. Simple cyst interpolar region left kidney IMPRESSION: No evidence of pulmonary embolus. Mild cardiomegaly with coronary artery calcification Emphysematous changes with scattered subpleural fibrosis. Patchy consolidation right middle lobe and lower lobe. Correlate for pneumonia. . Moderately large hernia. All CT scans are performed using dose optimization techniques as appropriate to the performed exam an d include at least one of the following: Automated exposure control, adjustment of the mA and/or kV according t o size, and the use of iterative reconstruction technique.
[2023-03-26] MEDS ORDERED: XANAX PO PRN (21:12)
[2023-03-26] MEDS ORDERED: ZANAFLEX PO PRN (21:35)
[2023-03-26] MEDS: SPIRIVA IH SCH (21:53)
[2023-03-26] MEDS: PLAVIX PO SCH (21:53)
[2023-03-26] MEDS: REQUIP PO SCH (21:53)
[2023-03-26] MEDS: TOPROL XL PO SCH (21:53)
[2023-03-26] MEDS: PERCOCET 10-325 PO SCH (21:53)
[2023-03-26] MEDS: CELEXA PO SCH (21:53)
[2023-03-26] MEDS: CRESTOR PO SCH (21:54)
[2023-03-26] MEDS: DUONEB NEB SCH (23:00)
[2023-03-27] MEDS ORDERED: ALBUTEROL 0.083% NEB NEB SCH
[2023-03-27] MEDS ORDERED: ATROVENT 0.02% NEB NEB SCH
[2023-03-27] MEDS: SOLU-MEDROL 40 MG IVP SCH ×4 (00:59→23:35)
[2023-03-27] MEDS: DUONEB NEB SCH ×4 (05:04→23:00)
[2023-03-27] MEDS: PERCOCET 10-325 PO SCH ×3 (05:14→20:20)
[2023-03-27 05:16] LABS: BASOPHILS % (AUTO) 0.2 % (0.0-3.0); HEMOGLOBIN 13.8 g/dl (12.0-16.0); IMMATURE GRANULOCYTE % (AUTO) 0.2 % (0.0-5.0); LYMPHOCYTES # (AUTO) 0.6 K/uL (0.60-3.4); LYMPHOCYTES % (AUTO) 6.8 (10.0-50.0); MEAN CORPUSCULAR HEMOGLOBIN 30.4 pg (27.0-31.0); MEAN CORPUSCULAR HGB CONC 32.1 (31.8-35.4); MEAN CORPUSCULAR VOLUME 94.7 fl (81.0-99.0); MONOCYTES # (AUTO) 0.2 K/uL (0.4-2.0); MONOCYTES % (AUTO) 1.9 (0-10); NEUTROPHILS # (AUTO) 7.3 K/ul (2.0-6.9); NEUTROPHILS % (AUTO) 90.9 % (42.2-75.2); PLATELET COUNT 155 10^3/uL (140-440); RDW COEFFICIENT OF VARIATION 13.3 % (11.6-14.8); RED BLOOD COUNT 4.54 10^6/ul (4.20-5.40); WHITE BLOOD COUNT 8.07 K/ul (4.6-10.2)
[2023-03-27 05:28] LABS: ALANINE AMINOTRANSFERASE 14.5 U/L (0-35); ALBUMIN 3.78 g/dL (3.5-5.0); ASPARTATE AMINO TRANSFERASE 22.8 U/L (14-36); BILIRUBIN,TOTAL 0.34 mg/dL (0.2-1.3); BLOOD UREA NITROGEN 19.3 mg/dL (7-17); CALCIUM 8.39 mg/dL (8.4-10.2); CHLORIDE 103.8 mmol/L (98-107); CREATININE 0.81 mg/dL (0.60-1.30); GLUCOSE 266.9 mg/dL (74-106); POTASSIUM 4.02 mmol/L (3.5-5.1); SODIUM 136.9 mmol/L (134.5-145); TOTAL PROTEIN 7.06 g/dL (6.3-8.2)
[2023-03-27] MEDS: SYNTHROID PO SCH (05:43)
[2023-03-27] MEDS: PROTONIX PO SCH (05:44)
[2023-03-27] MEDS: ROCEPHIN 1 GM/50 ML D5W 1 GM/50 ML BAG IV SCH (08:12)
[2023-03-27] MEDS: SPIRIVA IH SCH (08:59)
[2023-03-27] MEDS: SYMBICORT 160-4.5 MCG INHALER IH SCH ×2 (09:00→20:19)
[2023-03-27] MEDS: PLAVIX PO SCH (09:02)
[2023-03-27] MEDS: LOVENOX SUBCUT SCH (09:02)
[2023-03-27] MEDS: TOPROL XL PO SCH (09:02)
[2023-03-27] MEDS: ZITHROMAX 500 MG in SODIUM CHLORIDE 250 ML IV SCH (09:05)
--- NOTE | 2023-03-27 10:02 | PCM ---
Date of Service Date Seen by Provider: 03/27/23 Time Seen by Provider: 09:15 Admit Day/Time Admission Date: 03/26/23 Admission Time: 17:04 Reason for Admission Chief Complaint: ACUTE RESP. FAILURE & HYPOXIA, PNEUMONIA, Hospital Provider Hospital Provider: LIA CASON [facility]-C, [facility] Physician Primary Care Physician: SIA MURRY MD History of Present Illness History of Present Illness: Patient is a 72 year old female from home with pmhx of COPD with chronic respiratory failure requiring 2L at night, ANGELINA, hyperlipidemia, hypertension, b12 deficiency, CAD s/p 1 stent, restless leg syndrome who presents to ER for sob since . She has been wearing her O2 all day instead of only at night. Has a productive cough. Has been wheezing significantly. Has been using her inhalers at home without relief. Last hospitalization for COPD was two years ago. She has ANGELINA but has not worn her cpap in over a year. In ER she was noted to have a fever, low O2, and increased RR. She was given a a liter of fluid, tylenol, duoneb, steroids, and antibiotics. CXR showed possible virgie pneumonia. ABG showed low O2. She was admitted to med surg for further treatment. Per nursing staff patient desaturated into 80s with ambulation to rest room this morning. Case Discussed With Case Discussed With: Patient's case was discussed with the ER Physicians, Dr. Sanchez. [facility] Medical History B12 deficiency anemia D51.9 - Vitamin B12 deficiency anemia, unspecified (ICD-10) Bronchitis, acute J20.9 - Acute bronchitis, unspecified (ICD-10) CAD (coronary artery disease) I25.10 - Atherosclerotic heart disease of [place] coronary artery without angina pectoris (ICD-10) Chronic bronchitis J42 - Unspecified chronic bronchitis (ICD-10) Chronic respiratory failure J96.10 - Chronic respiratory failure, unspecified whether with hypoxia or hypercapnia (ICD-10) Colitis K52.9 - NONINFECTIVE GASTROENTERITIS AND COLITIS, UNSPECIFIED (ICD-10) COPD (chronic obstructive pulmonary disease) J44.9 - Chronic obstructive pulmonary disease, unspecified (ICD-10) Dyslipidemia E78.5 - Hyperlipidemia, unspecified (ICD-10) Former smoker Z87.891 - Personal history of nicotine dependence (ICD-10) HTN, goal below 130/80 I10 - Essential (primary) hypertension (ICD-10) Hypothyroidism E03.9 - Hypothyroidism, unspecified (ICD-10) Obesity E66.9 - Obesity, unspecified (ICD-10) Obstructive sleep apnea G47.33 - Obstructive sleep apnea (adult) (pediatric) (ICD-10) Pneumonia J18.9 - Pneumonia, unspecified organism (ICD-10) Primary osteoarthritis of hips, bilateral M16.0 - Bilateral primary osteoarthritis of hip (ICD-10) Renal cyst N28.1 - Cyst of kidney, acquired (ICD-10) Restless leg syndrome, controlled G25.81 - Restless legs syndrome (ICD-10) Upper respiratory infection J06.9 - ACUTE UPPER RESPIRATORY INFECTION, UNSPECIFIED (ICD-10) Surgical History H/O heart artery stent Z95.5 - Presence of coronary angioplasty implant and graft (ICD-10) History of heart artery stent Z95.5 - Presence of coronary angioplasty implant and graft (ICD-10) History of hysterectomy Z90.710 - Acquired absence of both cervix and uterus (ICD-10) Family History FATHER Diabetes SISTER Emphysema of lung Cervical cancer BROTHER Emphysema of lung SISTER COPD (chronic obstructive pulmonary disease) BROTHER COPD (chronic obstructive pulmonary disease) Social History Smoking and tobacco status: Current every day smoker Tobacco type: cigarettes Smoking packs per day: 0.75 Smoking cigarettes per day: 15.0 Years smoked: 55 Smoking pack-years: 41.25 Tobacco: How many years used: 55 Quit status: considering quitting Second hand smoke exposure: No Smoking risk assessment performed: No Alcohol intake: never Substance use type: does not use Adopted: No Caregiver/support person: Yes Foster care: No Household members: spouse Housing: house Marital status: M Lives independently: Yes Number of children: 3 Number of grandchildren: 5 Current occupational status: retired History of recent travel: No Current gender identity: female Seatbelt use: always Current diet type/program: regular Water heater temperature set < 120 degrees: Yes Working smoke detector in home: Yes Fire extinguisher in home: No Carbon monoxide detector in home: No What type of physical activity do you participate in?: walking Allergies Allergies Allergy/AdvReac Type Severity Reaction Status Date / Time No Known Allergies Allergy Verified 03/26/23 15:44 Current Medications Home Medications omega 5-ayl-ksu-fish oil 300 mg-1,000 mg capsule 1 ea PO DAILY 12/02/17 [History Confirmed 03/26/23 Last Taken 01/16/20] calcium carbonate 600 mg-vitamin D3 5 mcg (200 unit) tablet (Calcium 600 + D(3)) 1 tab PO DAILY 02/06/21 [History Confirmed 03/26/23 Last Taken Unknown] citalopram 20 mg tablet (Celexa) 20 mg PO BEDTIME 02/06/21 [History Confirmed 03/26/23 Last Taken Unknown] cyanocobalamin (vitamin B-12) 500 mcg tablet 500 mcg PO DAILY 02/06/21 [History Confirmed 03/26/23 Last Taken Unknown] ipratropium 0.5 mg-albuterol 3 mg (2.5 mg base)/3 mL nebulization soln 3 ml inhalation Q6H PRN SOA, Wheezing 02/06/21 [History Confirmed 03/26/23 Last Taken Unknown] facial mask #1 ea 03/10/23 [Rx Confirmed 03/26/23 Last Taken Unknown] albuterol sulfate 90 mcg/actuation aerosol inhaler 2 puff inhalation Q6H PRN shortness of breath or wheezing 03/15/23 [History Confirmed 03/26/23 Last Taken Unknown] alprazolam 0.5 mg tablet 0.5 mg PO QDAY PRN anxiety #30 tabs 03/15/23 [Rx Confirmed 03/26/23 Last Taken Unknown] amlodipine 5 mg tablet 5 mg PO BEDTIME #90 tabs 03/15/23 [Rx Confirmed 03/26/23 Last Taken Unknown] clopidogrel 75 mg tablet See Rx Instructions .Route .COMPLEX #90 tabs 03/15/23 [Rx Confirmed 03/26/23 Last Taken Unknown] fluticasone fur. 100 mcg-umeclid 62.5 mcg-vilant 25 mcg inhalat.powder (Trelegy Ellipta) 1 inh inhalation QDAY 03/15/23 [History Confirmed 03/26/23 Last Taken Unknown] fluticasone propionate 50 mcg/actuation nasal spray,suspension (Flonase Allergy Relief) 1 spray intranasal QDAY PRN allergy symptoms #16 grams 03/15/23 [Rx Confirmed 03/26/23 Last Taken Unknown] levothyroxine 50 mcg tablet 50 mcg PO DAILY #90 tabs 03/15/23 [Rx Confirmed Last Taken Unknown] metoprolol succinate 25 mg tablet,extended release 24 hr See Rx Instructions .Route .COMPLEX #90 tabs 03/15/23 [Rx Confirmed 03/26/23 Last Taken Unknown] oxycodone-acetaminophen 10 mg-325 mg tablet 1 tab PO Q8H 03/15/23 [History Confirmed 03/26/23 Last Taken Unknown] pantoprazole 40 mg tablet,delayed release (Protonix) 40 mg PO QDAC #90 tabs 03/15/23 [Rx Confirmed 03/26/23 Last Taken Unknown] potassium chloride 20 mEq tablet,extended release(part/cryst) (Klor-Con M) 20 meq PO DAILY #90 tabs 03/15/23 [Rx Confirmed 03/26/23 Last Taken Unknown] ropinirole 0.5 mg tablet See Rx Instructions .Route .COMPLEX #90 tabs 03/15/23 [Rx Confirmed 03/26/23 Last Taken Unknown] rosuvastatin 10 mg tablet See Rx Instructions .Route .COMPLEX #90 tabs 03/15/23 [Rx Confirmed 03/26/23 Last Taken Unknown] tizanidine 4 mg capsule (Zanaflex) 4 mg PO BID PRN Muscle spasms 03/15/23 [History Confirmed 03/26/23 Last Taken Unknown] nitroglycerin 0.4 mg sublingual tablet (Nitrostat) 0.4 mg PO PRN PRN Chest Pain #30 tabs 03/17/23 [Rx Confirmed 03/26/23 Last Taken Unknown] Home Acetaminophen (Acetaminophen 325 Mg Tablet) 650 mg PO Q4-6H PRN PRN Reason: Mild/Moderate Pain Albuterol/Ipratropium (Ipratropium/Albuterol Vial.Neb) 3 ml NEB RTQ6H MONE Last Admin: 03/27/23 11:20 Dose: 3 ml Alprazolam (Alprazolam 0.5 Mg Tablet) 0.5 mg PO DAILY PRN PRN Reason: Anxiety Amlodipine Besylate (Amlodipine Besylate 5 Mg Tablet) 5 mg PO BEDTIME [facility] Budesonide/Formoterol Fumarate (Budesonide/Formoterol Fumarate 160/4.5 Mcg Inhaler) 2 puff IH BID [facility] Last Admin: 03/27/23 09:00 Dose: 2 puff Citalopram Hydrobromide (Citalopram Hydrobromide 20 Mg Tablet) 20 mg PO BEDTIME [facility] Last Admin: 03/26/23 21:53 Dose: 20 mg Clopidogrel Bisulfate (Clopidogrel Bisulfate 75 Mg Tablet) 75 mg PO DAILY [facility] Last Admin: 03/27/23 09:02 Dose: 75 mg Enoxaparin Sodium (Enoxaparin Sodium 40 Mg/0.4 Ml Syr) 40 mg SUBCUT DAILY [facility] Last Admin: 03/27/23 09:02 Dose: 40 mg CEFTRIAXONE/D5W 1 GM PREMIX (Rocephin 1 Gm/50 Ml D5w) 1 gm in 50 mls @ 75 mls/hr IV DAILY [facility] Stop: 03/30/23 08:59 Last Admin: 03/27/23 08:12 Dose: 75 mls/hr Azithromycin 500 mg/ Sodium (Chloride) 250 mls @ 125 mls/hr IV DAILY [facility] Stop: 03/29/23 10:59 Last Admin: 03/27/23 09:05 Dose: 125 mls/hr Insulin Human Lispro (Insulin Lispro 100 Unit/Ml (3 Ml) Vial) 0 unit SUBCUT PRN PRN; Protocol PRN Reason: Hyperglycemia Last Admin: 03/27/23 11:28 Dose: 6 unit Levothyroxine Sodium (Levothyroxine Sodium 50 Mcg Tablet) 50 mcg PO DAILY@0630 [facility] Last Admin: 03/27/23 05:43 Dose: 50 mcg Methylprednisolone Sodium Succinate (Methylprednisolone Sod Succ/Pf 40 Mg/Ml Vial) 40 mg IVP 0000,0800,1600 [facility] Last Admin: 03/27/23 09:35 Dose: 40 mg Metoprolol Succinate (Metoprolol Succinate 25 Mg Tab.Er.24h) 25 mg PO DAILY [facility] Last Admin: 03/27/23 09:02 Dose: 25 mg Ondansetron HCl (Ondansetron Hcl/Pf 4 Mg/2 Ml Sdv) 4 mg IVP Q6H PRN PRN Reason: Nausea / Vomiting Oxycodone/Acetaminophen (Oxycodone/Acetaminophen 10/325 Mg Tablet) 1 tab PO Q8HR [facility] Last Admin: 03/27/23 05:14 Dose: 1 tab Pantoprazole Sodium (Pantoprazole Sodium 40 Mg Tablet.Dr) 40 mg PO QDAC [facility] Last Admin: 03/27/23 05:44 Dose: 40 mg Ropinirole HCl (Ropinirole Hcl 0.25 Mg Tablet) 0.25 mg PO BEDTIME [facility] Last Admin: 03/26/23 21:53 Dose: 0.25 mg Rosuvastatin Calcium (Rosuvastatin Calcium 10 Mg Tablet) 10 mg PO QPM [facility] Last Admin: 03/26/23 21:54 Dose: 10 mg Tiotropium Bronson (Tiotropium Bronson 18 Mcg Cap.W.Dev) 1 cap IH DAILY [facility] Last Admin: 03/27/23 08:59 Dose: 1 cap Tizanidine HCl (Tizanidine Hcl 4 Mg Tablet) 4 mg PO BID PRN PRN Reason: Pain Discontinued Medications Acetaminophen (Acetaminophen 325 Mg Tablet) 650 mg PO ONCE ONE Stop: 03/26/23 15:57 Last Admin: 03/26/23 16:09 Dose: 650 mg Albuterol/Ipratropium (Ipratropium/Albuterol Vial.Neb) 3 ml NEB ONCE ONE Stop: 03/26/23 16:04 Last Admin: 03/26/23 16:09 Dose: 3 ml Azithromycin (Azithromycin 250 Mg Tablet) 500 mg PO ONCE ONE Stop: 03/26/23 15:54 Last Admin: 03/26/23 16:10 Dose: 500 mg Fentanyl Citrate (Fentanyl 50 Mcg/Ml Sdv) 50 mcg IVP ONCE ONE Stop: 03/26/23 18:16 Last Admin: 03/26/23 20:12 Dose: 50 mcg Magnesium Sulfate/Dextrose (Magnesium Sulfate 1 Gm/100 Ml D5w) 2 gm in 200 mls @ 100 mls/hr IV ONCE STA Stop: 03/26/23 17:54 Last Admin: 03/26/23 16:11 Dose: 100 mls/hr Sodium Chloride (Sodium Chloride) 1,000 mls @ 1,000 mls/hr IV BOLUS STA Stop: 03/26/23 16:54 Last Admin: 03/26/23 17:25 Dose: Not Given CEFTRIAXONE/D5W 1 GM PREMIX (Rocephin 1 Gm/50 Ml D5w) 1 gm in 50 mls @ 75 mls/hr IV ONCE ONE Stop: 03/26/23 17:36 Last Admin: 03/26/23 17:10 Dose: 75 mls/hr Sodium Chloride (Sodium Chloride) 1,000 mls @ 1,000 mls/hr IV Q0H MONE Last Admin: 03/27/23 10:22 Dose: Not Given Sodium Chloride (Sodium Chloride) 250 mls @ 250 mls/hr IV BOLUS ONE Stop: 03/26/23 19:16 Last Admin: 03/26/23 19:59 Dose: 250 mls/hr Ipratropium Bronson (Ipratropium Bronson 0.02% Vial.Neb) 2.5 ml NEB RTQ6H [facility] Methylprednisolone Sodium Succinate (Methylprednisolone Sod Succ/Pf 125 Mg/2 Ml Vial) 125 mg IVP ONCE ONE Stop: 03/26/23 15:54 Last Admin: 03/26/23 16:11 Dose: 125 mg Review of Systems Constitutional: Reports Fever and Fatigue Head: Reports Normocephalic and Atraumatic Eyes: Denies Blurred vision or Vision Changes Ears: Denies Pain or Drainage Nose: Reports Congestion; Denies Post Nasal Drip Mouth: Denies Sores Throat: Denies Sore Throat or Difficulty Swallowing Cardiovascular: Denies Chest pain, Chest Pressure or Edema Respiratory: Reports Cough, Shortness of air and Wheeze Gastrointestinal: Denies Nausea, Vomiting or Diarrhea Genitourinary: Denies Dysuria or Frequency Dermatologic: Denies Rashes Neurological: Denies Headache, Syncope or Speech difficulty Psychiatric: Reports Anxiety; Denies Depression or Suicidal Physical examination Most Recent Vital Signs: Most Recent Vital Signs Temperature 97.2 F L 03/27/23 05:26 Temperature Source Temporal Artery Scan 03/27/23 05:26 Temperature Source Infrared 03/26/23 15:39 Pulse Rate 53 L 03/27/23 05:26 Respiratory Rate 18 03/27/23 05:26 Blood Pressure 108/59 L 03/27/23 05:26 Blood Pressure Mean 75 03/27/23 05:26 Blood Pressure Right Arm 116/65 03/26/23 18:17 Blood Pressure Location Left Arm 03/27/23 05:26 Blood Pressure Position Supine 03/27/23 05:26 O2 Sat by Pulse Oximetry 94 L 03/27/23 05:26 Oxygen Delivery Method Nasal Cannula 03/27/23 05:26 Oxygen Flow Rate 3 03/27/23 05:26 Height 5 ft 1 in 03/26/23 18:17 Weight 167 lb 7 oz 03/26/23 18:17 Telemetry Type Remote Telemetry 03/27/23 07:00 Telemetry Monitoring Continues 03/27/23 07:00 Telemetry Heart Rate 51 L 03/27/23 07:00 Telemetry SPO2 92 L 03/27/23 07:00 EKG NJ Interval 0.15 03/27/23 07:00 EKG QRS Interval 0.12 H 03/27/23 07:00 Telemetry Strip Reading SB 03/27/23 07:00 Appearance: Positive Well-appearing, Well-nourished, Alert and Oriented x3 and Other Skin: Negative Rashes HEENT: Positive Normocephalic, Atraumatic and Oral Mucous Moist Neck: Positive Supple and Midline Trachea; Negative JVD Chest/Lungs: Positive Symmetrical With Equal Breath Sounds, Rhonci and Wheezes (significant wheezing in all dorantes bilaterally. No drooling or tripoding. Able to speak full sentences. Mild conversational dyspnea. ); Negative Clear to Auscultation Bilaterally Heart: Positive RRR GI/: Positive Soft, Nontender and Bowel Sounds Normal Extremities: Positive Intact Peripheral Pulses; Negative Edema Neurological: Positive Sensation Intact, Cranial Nerves Intact, Alert and Muscle Strength 5/5 in Upper and Lower Extremities Bilaterally Psychiatric: Positive Oriented x4, Appropriate Mood, Appropriate Affect, Normal Judgement and Normal Insight Labs This Visit Labs This Visit: Labs This Visit 03/26/23 03/26/23 03/27/23 15:50 16:10 04:56 WBC 13.48 H 8.07 D RBC 4.61 4.54 Hgb 14.1 13.8 Hct 43.6 43.0 MCV 94.6 94.7 MCH 30.6 30.4 MCHC 32.3 32.1 RDW Coeff of Melody 13.4 13.3 Plt Count 158 155 Immature Gran % (Auto) 0.3 0.2 Neut % (Auto) 81.4 H 90.9 H Lymph % (Auto) 5.8 L 6.8 L Loup % (Auto) 12.1 H 1.9 Eos % (Auto) 0.1 0.0 Baso % (Auto) 0.3 0.2 Neut # (Auto) 11.0 H 7.3 H Lymph # (Auto) 0.8 0.6 Loup # (Auto) 1.6 0.2 L Eos # (Auto) 0.0 0.0 Baso # (Auto) 0.0 0.0 Immature Gran # (Auto) 0.0 0.0 Puncture Site Rrad Base Excess 2.7 O2 Saturation 86.7 L ABG pH 7.41 ABG pCO2 43.0 ABG pO2 52.0 L* ABG HCO3 27.3 ABG Total CO2 28.6 H Hugo Test Pos Hemoglobin 1.2 Oxyhemoglobin 82.5 L Carboxyhemoglobin 3.5 H Total Hemoglobin 14.8 FiO2 % 21.0 Sodium 133.8 L 136.9 Potassium 3.99 4.02 Chloride 101.9 103.8 Carbon Dioxide 25.2 31.0 H Anion Gap 10.69 6.12 BUN 20.0 H 19.3 H Creatinine 0.83 0.81 Estimated GFR (MDRD) 68.00 70.00 BUN/Creatinine Ratio 24.09 23.82 Glucose 93.1 266.9 H D Lactic Acid 0.71 Calcium 8.59 8.39 L Total Bilirubin 0.92 0.34 AST 21.6 22.8 ALT 11.6 14.5 Alkaline Phosphatase 56.2 55.0 NT-Pro-B Natriuret Pep 506 H Total Protein 7.27 7.06 Albumin 4.09 3.78 Globulin 3.18 3.28 Albumin/Globulin Ratio 1.28 1.15 Procalcitonin 0.05 SARS CoV-2 RNA Rapid LESLEE Negative Imaging Imagining: EXAM: CHEST X-RAY ONE VIEW. HISTORY: Short of breath. COMPARISON: 10/16/2021 chest x-ray. FINDINGS: There are increased patchy opacities present within both lung bases with blunting of the costophrenic angles. Chronic bilateral interstitial lung markings and calcified granulomas are present. The cardiac silhouette is enlarged. There is no pulmonary edema or pneumothorax. No change in the osseous structures. IMPRESSION: Nonspecific density in the lung bases which could represent atelectasis and/or pneumonia. There is a small bilateral pleural effusion. Cardiomegaly. EXAM: CTA CHEST HISTORY: Hypoxia COMPARISON: CT scan chest 02/07/2020 FINDINGS: Postcontrast helical imaging was obtained through the thorax u tilizing 2.5-mm collimation. Sagittal and coronal reconstructions were imaged and reviewed.. Source images utilized create rotating 3-D MIP images.. The thoracic inlet is unremarkable. The, prevascular pretracheal lymph nodes measure upwards of 12 mm. By 913 mm right hilar lymph node 10 mm left hilar lymph node. The right-sided subcarinal lymph nodes measure upwards of 13 mm. The heart is prominent with coronary artery calcification. There is a pericardial effusion. There is no pulmonary embolus. There is moderately large hiatal hernia. Patchy consolidation is seen within the right middle lobe and right lower lobe. Emphysematous changes with scattered subpleural fibrosis.. Bone windows reveals no lytic or blastic lesions.. Simple cyst interpolar region left kidney IMPRESSION: No evidence of pulmonary embolus. Mild cardiomegaly with coronary artery calcification Emphysematous changes with scattered subpleural fibrosis. Patchy consolidation right middle lobe and lower lobe. Correlate for pneumonia. Moderately large hernia. Review Statement Review Statement: I have independently reviewed and interpreted the labs/EKGs/imaging that were ordered by the ER provider. I have reviewed all outside records that are available currently in our EMR including imaging/notes/labs from previous visits . Plan Plan: A&P: 1. Acute hypoxic respiratory failure in setting of acute COPD exacerbation and pneumonia - Dubnebs, rocephin/azith, solumedrol 40 q8hrs IV. CTA negative for PE. Wean O2 to baseline when able (wears 2L at night usually.) 2. Acute COPD exacerbation - Plan as above. 3. Community acquired pneumonia, right, likely bacterial - Plan as above. 4. Sepsis in setting of CAP - Patient received 30 ml/kg of fluid (2250 total). She appears euvolemic at this time. LA was normal. BC pending. Continue antibiotics. 5. Hyperglycemia in setting of steroid use - Will cover with sliding scale insulin. Accuchecks achs. Check a1c in AM. 6. Hypertension - Chronic, stable. Continue home amlodipine and metoprolol. 7. Hyperlipidemia - Chronic, stable. Continue home statin. 8. CAD requiring 1 stent in 2005 - Chronic, stable. Continue home plavix. 9. B 12 deficiency - Chronic stable. Hold home b12 10. Anxiety - Chronic, stable. Continue home celexa. 11. Hypothyroidism - Chronic, stable. Continue home levothyroxine. 12. Osteoarthritis - Chronic, stable. Continue home hydrocodone. 13. Restless legs syndrome - Chronic, stable. Continue home ropinirole. DVT Prophylaxis: Lovenox Time Spent: Greater than 80 minutes spent with patient, 50% of the time spent with this patient was devoted to counseling and coordination of care. [facility] minutes spent discussing advance care planning. Patient wishes to be a DNR. Paperwork filled outa nd signed. Smoking Cessation: 3 minutes spent discussing smoking cessation. Admit to: Inpatient Discussed Plan of Care with Dr. Murry. Medications Medication Orders: Medications Ordered Category Date Time Status Acetaminophen [Tylenol] MEDS 03/26/23 18:04 Active 650 mg PO Q4-6H PRN Alprazolam [Xanax] MEDS 03/26/23 21:12 Active 0.5 mg PO DAILY PRN Amlodipine Besylate [Norvasc] MEDS 03/27/23 21:00 Active 5 mg PO BEDTIME Azithromycin Inj [Zithromax] 500 mg MEDS 03/27/23 09:00 Active 0.9 % Sodium Chloride [Sodium Chloride] 250 ml IV DAILY Budesonide/Formoterol Fumarate [Symbicort 160-4.5 Mcg MEDS 03/27/23 09:00 Active Inhaler] 2 puff IH BID Ceftriaxone/D5w 1 gm Premix [Rocephin 1 gm/50 ml D5w] MEDS 03/27/23 09:00 Active 1 gm in 50 ml IV DAILY Citalopram Hydrobromide [Celexa] MEDS 03/26/23 21:30 Active 20 mg PO BEDTIME Clopidogrel Bisulfate [Plavix] MEDS 03/26/23 21:30 Active 75 mg PO DAILY Enoxaparin Sodium [Lovenox] MEDS 03/27/23 09:00 Active 40 mg SUBCUT DAILY Insulin Lispro [Humalog] MEDS 03/27/23 09:15 Active See Protocol SUBCUT PRN PRN Ipratropium/Albuterol Neb [Duoneb] MEDS 03/27/23 00:00 Active 3 ml NEB RTQ6H Levothyroxine Sodium [Synthroid] MEDS 03/27/23 06:30 Active 50 mcg PO DAILY@0630 Methylprednisolone Sod Succ/Pf [Solu-Medrol 40 mg] MEDS 03/27/23 00:00 Active 40 mg IVP 0000,0800,1600 Metoprolol Succinate [Toprol Xl] MEDS 03/26/23 21:30 Active 25 mg PO DAILY Ondansetron HCl/Pf [Zofran 4 mg/2 ml] MEDS 03/26/23 18:21 Active 4 mg IVP Q6H PRN Oxycodone-Acetaminophen 10-325 [Percocet 10-325] MEDS 03/26/23 21:30 Active 1 tab PO Q8HR Pantoprazole Sodium [Protonix] MEDS 03/27/23 06:30 Active 40 mg PO QDAC Ropinirole HCl [Requip] MEDS 03/26/23 21:30 Active 0.25 mg PO BEDTIME Rosuvastatin Calcium [Crestor] MEDS 03/26/23 21:30 Active 10 mg PO QPM Sodium Chloride 0.9% [Sodium Chloride] 1,000 ml MEDS 03/26/23 18:30 Active IV Q0H Tiotropium Bronson [Spiriva] MEDS 03/26/23 21:41 Active 1 cap IH DAILY Tizanidine HCl [Zanaflex] MEDS 03/26/23 21:35 Active 4 mg PO BID PRN
[2023-03-27] MEDS: SODIUM CHLORIDE 1,000 ML IV SCH ×3 (10:21→21:28)
[2023-03-27] MEDS: HUMALOG SUBCUT PRN ×3 (11:28→21:04)
[2023-03-27] MEDS: CRESTOR PO SCH (16:31)
[2023-03-27] MEDS: REQUIP PO SCH (20:20)
[2023-03-27] MEDS: NORVASC PO SCH (20:20)
[2023-03-27] MEDS: CELEXA PO SCH (20:20)
[2023-03-28] MEDS: DUONEB NEB SCH ×4 (04:45→23:05)
[2023-03-28] MEDS: PERCOCET 10-325 PO SCH ×3 (05:08→20:48)
[2023-03-28] MEDS: SYNTHROID PO SCH (05:45)
[2023-03-28] MEDS: PROTONIX PO SCH (05:45)
[2023-03-28] MEDS: TOPROL XL PO SCH (08:12)
[2023-03-28] MEDS: PLAVIX PO SCH (08:12)
[2023-03-28] MEDS: SOLU-MEDROL 40 MG IVP SCH ×3 (08:13→23:11)
[2023-03-28] MEDS: SYMBICORT 160-4.5 MCG INHALER IH SCH ×2 (08:14→20:48)
[2023-03-28] MEDS: SPIRIVA IH SCH (08:15)
[2023-03-28] MEDS: ROCEPHIN 1 GM/50 ML D5W 1 GM/50 ML BAG IV SCH (08:20)
[2023-03-28] MEDS: LOVENOX SUBCUT SCH (08:24)
[2023-03-28 08:26] LABS: BASOPHILS % (AUTO) 0.2 % (0.0-3.0); EOSINOPHILS % (AUTO) 0.2 % (0.0-7.0); HEMATOCRIT 40.1 % (37.0-47.0); HEMOGLOBIN 12.8 g/dl (12.0-16.0); IMMATURE GRANULOCYTE % (AUTO) 0.3 % (0.0-5.0); LYMPHOCYTES # (AUTO) 0.6 K/uL (0.60-3.4); LYMPHOCYTES % (AUTO) 4.7 (10.0-50.0); MEAN CORPUSCULAR HEMOGLOBIN 30.7 pg (27.0-31.0); MEAN CORPUSCULAR HGB CONC 31.9 (31.8-35.4); MEAN CORPUSCULAR VOLUME 96.2 fl (81.0-99.0); MONOCYTES # (AUTO) 0.6 K/uL (0.4-2.0); MONOCYTES % (AUTO) 4.2 (0-10); NEUTROPHILS # (AUTO) 11.8 K/ul (2.0-6.9); NEUTROPHILS % (AUTO) 90.4 % (42.2-75.2); PLATELET COUNT 167 10^3/uL (140-440); RDW COEFFICIENT OF VARIATION 13.2 % (11.6-14.8); RED BLOOD COUNT 4.17 10^6/ul (4.20-5.40); WHITE BLOOD COUNT 13.06 K/ul (4.6-10.2)
[2023-03-28 08:32] LABS: ALANINE AMINOTRANSFERASE 19.4 U/L (0-35); ALBUMIN 3.18 g/dL (3.5-5.0); ASPARTATE AMINO TRANSFERASE 26.5 U/L (14-36); BILIRUBIN,TOTAL 0.12 mg/dL (0.2-1.3); BLOOD UREA NITROGEN 27.4 mg/dL (7-17); CALCIUM 8.65 mg/dL (8.4-10.2); CARBON DIOXIDE 32.3 mmol/L (22-30.0); CHLORIDE 105.8 mmol/L (98-107); CREATININE 0.9 mg/dL (0.60-1.30); GLUCOSE 209.3 mg/dL (74-106); POTASSIUM 4.58 mmol/L (3.5-5.1); SODIUM 137.9 mmol/L (134.5-145); TOTAL PROTEIN 6.4 g/dL (6.3-8.2)
--- NOTE | 2023-03-28 11:12 | PCM.PROG ---
Date/Time Seen Date Seen by Provider: 03/28/23 Time Seen by Provider: 09:00 Provider Provider: MARZENA MORE, [facility] Chief Complaint Chief Complaint: ACUTE RESP. FAILURE & HYPOXIA, PNEUMONIA, Subjective Subjective: No fever or event overnight. States she feels better today, but still not her baseline. Feels very winded when ambulating. Requiring 3L of O2 at this time. Objective Appearance: Positive Well-appearing, Well-nourished, No Apparent Distress and Alert and Oriented x3 Chest/Lungs: Positive Symmetrical With Equal Breath Sounds, Wheezes (Inspiratory and expiratory, scattered) and Good Air Movement all 4 Lung [place] Heart: Positive RRR, Pulses Normal, No S3 Auscultated and No S4 Auscultated GI/: Positive Soft, Nontender, Bowel Sounds Normal, No Distention and No Organomegaly Musculoskeletal: Positive Not Examined Neurological: Positive Sensation Intact, Motor intact, Alert, Oriented and Muscle Strength 5/5 in Upper and Lower Extremities Bilaterally (generalized weakness) Vital Signs Vital Signs: Vital Signs: Last 24 Hours 03/27/23 14:00 03/27/23 13:00 03/27/23 14:00 Temperature 97.2 F L Temperature Source Temporal Artery Scan Pulse Rate 59 L Respiratory Rate 19 Blood Pressure 88/51 L Blood Pressure Mean 63 Blood Pressure Location Right Arm Blood Pressure Position Supine O2 Sat by Pulse Oximetry 93 L 93 L Oxygen Delivery Method Nasal Cannula Nasal Cannula Oxygen Flow Rate 3 3 Telemetry Type Remote Telemetry Telemetry Monitoring Continues Telemetry Heart Rate 62 Telemetry SPO2 91 L EKG PA Interval 0.19 EKG QRS Interval 0.11 H Telemetry Strip Reading SR 03/27/23 19:00 03/27/23 20:00 03/27/23 20:00 Temperature Temperature Source Pulse Rate Respiratory Rate Blood Pressure Blood Pressure Mean Blood Pressure Location Blood Pressure Position O2 Sat by Pulse Oximetry 94 L Oxygen Delivery Method Nasal Cannula Nasal Cannula Oxygen Flow Rate 3 3 Telemetry Type Remote Telemetry Telemetry Monitoring Continues Telemetry Heart Rate 61 Telemetry SPO2 94 EKG PA Interval 0.20 EKG QRS Interval 0.14 H Telemetry Strip Reading NSR BBB 03/27/23 22:00 03/28/23 01:00 03/28/23 05:51 Temperature 97.5 F L 97 F L Temperature Source Temporal Artery Scan Oral Pulse Rate 58 L 62 Respiratory Rate 18 18 Blood Pressure 95/52 L 99/50 L Blood Pressure Mean 66 66 Blood Pressure Location Left Arm Left Arm Blood Pressure Position Supine O2 Sat by Pulse Oximetry 95 94 L Oxygen Delivery Method Nasal Cannula Nasal Cannula Oxygen Flow Rate 3 3 Telemetry Type Remote Telemetry Telemetry Monitoring Continues Telemetry Heart Rate 61 Telemetry SPO2 EKG PA Interval 0.16 EKG QRS Interval 0.14 H Telemetry Strip Reading NSR/BBB 03/28/23 07:00 03/28/23 06:00 03/28/23 09:35 Temperature Temperature Source Pulse Rate Respiratory Rate Blood Pressure Blood Pressure Mean Blood Pressure Location Blood Pressure Position O2 Sat by Pulse Oximetry 96 94 L Oxygen Delivery Method Nasal Cannula Nasal Cannula Oxygen Flow Rate 3 3 Telemetry Type Remote Telemetry Telemetry Monitoring Continues Telemetry Heart Rate 58 L Telemetry SPO2 EKG PA Interval 0.14 EKG QRS Interval 0.12 H Telemetry Strip Reading SINUS LUCY WITH BBB Lab Results Lab Results: Lab Results: Last 24 Hours 03/28/23 04:44 WBC 13.06 H RBC 4.17 L Hgb 12.8 Hct 40.1 MCV 96.2 MCH 30.7 MCHC 31.9 RDW Coeff of Melody 13.2 Plt Count 167 Immature Gran % (Auto) 0.3 Neut % (Auto) 90.4 H Lymph % (Auto) 4.7 L [place] % (Auto) 4.2 Eos % (Auto) 0.2 Baso % (Auto) 0.2 Neut # (Auto) 11.8 H Lymph # (Auto) 0.6 [place] # (Auto) 0.6 Eos # (Auto) 0.0 Baso # (Auto) 0.0 Immature Gran # (Auto) 0.0 Sodium 137.9 Potassium 4.58 Chloride 105.8 Carbon Dioxide 32.3 H Anion Gap 4.38 BUN 27.4 H Creatinine 0.90 Estimated GFR (MDRD) 62.00 BUN/Creatinine Ratio 30.44 Glucose 209.3 H D Hemoglobin A1c 5.9 Calcium 8.65 Total Bilirubin 0.12 L AST 26.5 ALT 19.4 Alkaline Phosphatase 56.0 Total Protein 6.40 Albumin 3.18 L Globulin 3.22 Albumin/Globulin Ratio 0.98 Additional Comments Additional Comments: I have independently reviewed and interpreted the labs/EKGs/imaging ordered during this hospital stay. I have reviewed outside records that are available in our EMR that pertain to medical stay including imaging/notes/labs from previous visits. Active Medications Active Medications: Medications Generic Name Dose Route Start Last Admin Trade Name Freq PRN Reason Stop Dose Admin Acetaminophen 650 mg 03/26/23 18:04 Acetaminophen 325 Mg Tablet PO Q4-6H PRN Mild/Moderate Pain Albuterol/Ipratropium 3 ml 03/27/23 00:00 03/28/23 04:45 Ipratropium/Albuterol Vial.Neb NEB 3 ml RTQ6H MONE Administration Alprazolam 0.5 mg 03/26/23 21:12 Alprazolam 0.5 Mg Tablet PO DAILY PRN Anxiety Amlodipine Besylate 5 mg 03/27/23 21:00 03/27/23 20:20 Amlodipine Besylate 5 Mg Tablet PO 5 mg BEDTIME MONE Administration Budesonide/Formoterol Fumarate 2 puff 03/27/23 09:00 03/28/23 08:14 Budesonide/Formoterol Fumarate 160/4.5 Mcg Inhaler IH 2 puff BID MONE Administration Citalopram Hydrobromide 20 mg 03/26/23 21:30 03/27/23 20:20 Citalopram Hydrobromide 20 Mg Tablet PO 20 mg BEDTIME MONE Administration Clopidogrel Bisulfate 75 mg 03/26/23 21:30 03/28/23 08:12 Clopidogrel Bisulfate 75 Mg Tablet PO 75 mg DAILY MONE Administration Enoxaparin Sodium 40 mg 03/27/23 09:00 03/28/23 08:24 Enoxaparin Sodium 40 Mg/0.4 Ml Syr SUBCUT 40 mg DAILY MONE Administration CEFTRIAXONE/D5W 1 GM PREMIX 1 gm in 50 mls @ 75 mls/hr 03/27/23 09:00 03/28/23 08:20 Rocephin 1 Gm/50 Ml D5w IV 03/30/23 08:59 75 mls/hr DAILY MONE Administration Azithromycin 500 mg/ Sodium 250 mls @ 125 mls/hr 03/27/23 09:00 03/27/23 09:05 Chloride IV 03/29/23 10:59 125 mls/hr DAILY MONE Administration Insulin Human Lispro 0 unit 03/27/23 09:15 03/27/23 21:04 Insulin Lispro 100 Unit/Ml (3 Ml) Vial SUBCUT 4 unit PRN PRN Administration Hyperglycemia Protocol Levothyroxine Sodium 50 mcg 03/27/23 06:30 03/28/23 05:45 Levothyroxine Sodium 50 Mcg Tablet PO 50 mcg DAILY@0630 MONE Administration Methylprednisolone Sodium Succinate 40 mg 03/27/23 00:00 03/28/23 08:13 Methylprednisolone Sod Succ/Pf 40 Mg/Ml Vial IVP 40 mg 0000,0800,1600 MONE Administration Metoprolol Succinate 25 mg 03/26/23 21:30 03/28/23 08:12 Metoprolol Succinate 25 Mg Tab.Er.24h PO 25 mg DAILY MONE Administration Ondansetron HCl 4 mg 03/26/23 18:21 Ondansetron Hcl/Pf 4 Mg/2 Ml Sdv IVP Q6H PRN Nausea / Vomiting Oxycodone/Acetaminophen 1 tab 03/26/23 21:30 03/28/23 05:08 Oxycodone/Acetaminophen 10/325 Mg Tablet PO 1 tab Q8HR MONE Administration Pantoprazole Sodium 40 mg 03/27/23 06:30 03/28/23 05:45 Pantoprazole Sodium 40 Mg Tablet.Dr PO 40 mg QDAC MONE Administration Ropinirole HCl 0.25 mg 03/26/23 21:30 03/27/23 20:20 Ropinirole Hcl 0.25 Mg Tablet PO 0.25 mg BEDTIME MONE Administration Rosuvastatin Calcium 10 mg 03/26/23 21:30 03/27/23 16:31 Rosuvastatin Calcium 10 Mg Tablet PO 10 mg QPM MONE Administration Sodium Chloride 1 syr 03/27/23 23:45 03/28/23 05:08 0.9% Sodium Chloride 10 Ml Disp.Syrin IVF 1 syr Q8HR MONE Administration Sodium Chloride 1 syr 03/27/23 23:38 0.9% Sodium Chloride 10 Ml Disp.Syrin IVF PRN PRN as needed Tiotropium Curlew 1 cap 03/26/23 21:41 03/28/23 08:15 Tiotropium Curlew 18 Mcg Cap.W.Dev IH 1 cap DAILY MONE Administration Tizanidine HCl 4 mg 03/26/23 21:35 Tizanidine Hcl 4 Mg Tablet PO BID PRN Pain Plan Plan: 1. Acute hypoxic respiratory failure in setting of acute COPD exacerbation and pneumonia - Duonebs, rocephin/azith, solumedrol 40 q8hrs IV. CTA negative for PE. Wean O2 to baseline when able (wears 2L at night usually.) 2. Acute COPD exacerbation - Plan as above. 3. Community acquired pneumonia, right, likely bacterial - Plan as above. 4. Sepsis in setting of CAP - Patient received 30 ml/kg of fluid (2250 total). She appears euvolemic at this time. LA was normal. BC preliminary negative. Continue antibiotics. 5. Hyperglycemia in setting of steroid use - Will cover with sliding scale insulin. Accuchecks achs. Check a1c in AM. 6. Hypertension - Chronic, stable. Continue home amlodipine and metoprolol. 7. Hyperlipidemia - Chronic, stable. Continue home statin. 8. CAD requiring 1 stent in 2005 - Chronic, stable. Continue home plavix. 9. B 12 deficiency - Chronic stable. Hold home b12 10. Anxiety - Chronic, stable. Continue home celexa. 11. Hypothyroidism - Chronic, stable. Continue home levothyroxine. 12. Osteoarthritis - Chronic, stable. Continue home hydrocodone. 13. Restless legs syndrome - Chronic, stable. Continue home ropinirole. DVT: Lovenox Review Statement Review Statement: I have personally discussed and reviewed the patient's visit/currently labs/imaging/decision making with Dr. Murry, my supervising attending. Greater that 50 minutes spent with patient, 50% of the time spent with this patient was devoted to counseling and coordination of care.
--- NOTE | 2023-03-28 11:43 | RS.OTINEVL ---
Subjective Patient information Date of Evaluation: 03/28/23 Date of Arrival on Unit: 03/26/23 Admitted From:: Emergency Dept Diagnosis: Acute Respiratory failure, hypoxia, pneumonia PRECAUTIONS: Fall precautions, O2 Usual Living Arrangement: With Others Living Arrangement Comments: With spouse, daughter, and grandchild Home Environment: Apartment, Stairs (few) and No rail Medical History: Hypertension, COPD and Arthritis Medical History Comments:: B12 def., sinus kylie with BBB, Stent in heart, Subjective Information/ Patient Comments:: Pt reports she has a stool in the kitchen she uses to peel vegetables. Pt reported she was taking care of her daughter who was in rehab for 6 weeks and her who had brain surgery. Level of function Prior to this admission, the patient could do the following:: Independent Selfcare, Independent ADL's, Independent Ambulation, Perform Automotive Sales Representative/Cooking and Participated in Social Activities Outside home Abilities prior to this admission: Pt became sick last and had to increase her O2 to 2 Liters in the daytime. Current Level of Function: Partially Dependent Comments: Pt is walking SBA to the door and back to the bed and her O2 was 90 % after she sat for 20 seconds. Current Equipment Used at Home: OXYGEN, NEBULIZER, HAS WALKER AND CANE Pain Assessment Pain Side: right Pain Location Body Site: Shoulder Pain Alleviating Factors: Medication and Position Change Interventions Objective Patient Orientation: Person, Place, Time and Situation Current Interventions: IV's, Oxygen and Telemetry Observation: Pt has full AROM. Pt has weakness in BUE shoulders. Pt is CGA for transfers to chair. Pt is CGA for ambulation to door. Pt is independent with bed mobility. Interventions ROM Right Upper Extremity AROM: WFL's Left Upper Extremity AROM: WFL's Strength Right Upper Extremity: Mild Weakness Left Upper Extremity: Mild Weakness Sensation Right Upper Extremity: Intact/Normal Left Upper Extremity: Intact/Normal Balance Sitting Balance Static Sitting Balance: Normal Standing Balance Static Standing Balance: Good Dynamic Standing Balance: Good ADL Skills Self Feeding Self Feeding: Independent Grooming Grooming: CGA Grooming Set-up: Sitting Bathing Bathing UE: Independent Bathing LE: Min Assist Bathing Set-up: Shower Dressing Dressing UE: CGA Dressing LE: CGA Toilet Management Toilet Hygiene: Independent Toilet Clothing Management: Independent Comments Comments:: Pt requires extra time with activities due to the oxygen fluctuation. Functional Mobility Bed Mobility Rolling R/L: Independent Scooting: Independent Supine to Sit: Independent Sit to Supine: Independent Transfers Sit to Stand: CGA Stand to Sit: CGA Stand Pivot Transfers: CGA Comments:: Pt is able to walk and becomes short of air. Pt is requiring the O2 all of the time at this time. Ambulation Weight Bearing Status: FWB Assistance needed with Ambulation: CGA Safety Awareness Safety Awareness: Good DANNY INDEX SCORE: . Additional Treatment Performed Additional units charged OT 1 to 1 Activity: 15 Time with patient Length of Evaluation: 20 Total treatment time: 35 Activities Do you enjoy playing games?: Yes Would you be interested in leaving your room for activities?: Yes Would you enjoy group activities?: Yes Do you have difficulty with your vision?: Yes Patient Interests:: Watching Television and Visiting/Socializing Assessment Problem List:: Decreased level of function, Requires training/education and Weakness Rehab Potential: Good Further Therapy Indicated?: Yes Candidate for Swing Bed for Therapy Services?: no Evaluation Complexity: HISTORY: Medium, EXAM OF BODY SYSTEMS: Medium and CLINICAL DECISION MAKING: Medium Patient's Goal(s): To be stronger and able to take care of herself and her and daughter. Short Term Goals Goals GOAL 1: Pt to be (I) with sink level ADLS. Goal to be met by: 03/30/23 Progress towards goal: Progressing GOAL 2: Pt to be SUP for toileting. Goal to be met by: 03/31/23 Progress towards goal: Progressing GOAL 3: Pt to increase BUE strength to 4+/5. Goal to be met by: 03/31/23 Progress towards goal: Progressing GOAL 4: Pt to tolerate 8 minutes of activity with rests PRN and O2 to 90%. Goal to be met by: 03/31/23 [place] Goals GOAL 1: Pt to be (I) with all ADLS. Goal to be met by: 04/01/23 Progress towards goal: Progressing GOAL 2: Pt to increase activity to 15 minutes with O2 at 90%. Goal to be met by: 04/01/23 Progress towards goal: Progressing GOAL 3: Pt to increase BUE strength to 5/5. Goal to be met by: 04/01/23 Progress towards goal: Progressing Plan Plan of Care: Therapeutic EX and Self-Care/Home Management Frequency of Treatment: 1-2 X day, as tolerated Duration of Treatment: 1 Week Anticipated Discharge Destination: Home Treatment Diagnosis (ICD 10 Codes): Weakness, R53.1 Has the Physician been added for Co-signature?: Yes
[2023-03-28] MEDS: ZITHROMAX 500 MG in SODIUM CHLORIDE 250 ML IV SCH (12:52)
--- NOTE | 2023-03-28 13:37 | RS.BEDDYS ---
Subjective Date of Evaluation: 03/28/23 Diagnosis: pneumonia; acute respiratory failure Current Level of Function: This is a 72 year old female admitted for SOB. She has hx of COPD, recurring bronchitis, and episodes of pneumonia. The OPERATIONS DIRECTOR will assess her at the bedside to determine if pt has risks for penetration/aspiration. Current Diet: Regular diet; thin liquids Current Subjective/complaints:: The patient was slightly reclined in her bed upon OPERATIONS DIRECTOR entry. Meal tray was present and pt was consuming regular diet with thin liquids. The patient reported that she does not have difficulty with swallowing food or liquids. The patient did report a recent episode that she felt was 'maybe aspiration." The patient reported that her chest felt tight and she could not 'catch her breath' or swallow the food. The OPERATIONS DIRECTOR discussed her large hiatal hernia that was identified on the recent CXR. The patient reported she was aware of the hernia at this time, but hadn't had the above mentioned symptoms before. The OPERATIONS DIRECTOR continued to ask the patient questions regarding her eating habits and patterns. The patient was deemed necessary for evaluation only to educate pt on safe swallow aspiration precautions, GERD precautions, COPD strategies, and determine safer and least restrictive diet. The patient was agreeable. Medical History Comments:: COPD, pneumonia, chronic bronchitis, obstructive sleep apnea, dyslipidemia, hypothyroidism. Hx Home Medications: Refer to medications for complete list. Patient's Goals: To safely consume PO with reduce SOB episodes. General Information General Denture Type: Full- Upper (Fits ) Patient Orientation: Person, Place, Time and Situation Ability to Follow Directions: Excellent Is Patient able to Repeat Directions?: Yes Oral Expression Ability: No Impairment Voice Voice Quality: Breathy and Harsh Voice Pitch: Mildly Low Voice Loudness: Normal Oral-Facial Assessment Face Facial Symmetry: Symmetrical Facial Movement: Controlled Dental/Labial Teeth Characteristics: Intact/Normal (Only bottom) Lip Protrusion: Normal Lip Retraction: Normal Puff Cheeks: Normal Lingual Protrusion: Normal Retraction: Normal Tip Lateralization: Normal Repeated Tip Lateralization: Normal Tip Elevation: Normal Repeated Tip Elevation: Normal Comments: Lingual surface easily dries, but pt manages with sips of liquids. Food Presentation Solids Food Presented: Regular (Self-fed) Behaviors/Comments: The patient took medium to large bite size of regular diet texture. The pt demonstrated prolonged mastication process with functional rotary chew pattern and bolus formation. The patient demonstrated 1-2x swallow with each bites. She utilized sips of liquids approximately 2-3 bites. She had timely swallow initiation, functional LE for airway protection, and minimal to no residuals post swallow. The patient had clear voice quality with all trials. One time she had delayed cough. Pt has minimal risks for aspiration at this time. Liquids Liquid Presented: Thin (Via straw.) Behaviors/Comments: The patient took sips of thin liquids via straw. Timing of swallow initiation and LE was functional. No overt s/s of aspiration observed. The patient utilized thin liquids with diet trials. One time she had delayed cough. Pt has minimal to no risks for aspiration. Recommendations: Dysphagia Evaluation Dietary Recommendations: Regular and Thin Comments:: medications whole with thin liquids Dysphagia Swallow Precautions/Strategies: Sitting Upright (90 deg), Small Bites and Sips and Alternate Liquids/Solids Comments:: Posture sitting upright in a high back chair, reduce leaning forward or placing elbows on table for support; Pacing including rate between each bite, allowing for sips of liquids and monitor breath support prior to next bite of food; rotating between harder to chew and easier to chew textures to reduce prolonged periods of mastication with inducing risks for deep breaths and inhalation of food particles from BOT. Summary Dysphagia Evaluation Summary: The patient does not present with signs or symptoms of dysphagia at the bedside. The patient does have a hiatal hernia and COPD that interfere with her rate and proficiency of eating pattern. At this time, the OPERATIONS DIRECTOR recommends the patient utilize specific posture, pacing, and rotational bites to reduce risks of SOB with PO intake. The OPERATIONS DIRECTOR assessed the patient at the bedside with regular diet textures and thin liquid consistency via straw. The patient had timely swallow initiation and functional LE for airway protection. However, pt did not demonstrate use of safe swal low/aspiration precautions or strategies to reduce SOB with PO intake. The OPERATIONS DIRECTOR provided the patient with verbal recommendations, trialed them with her meal tray, and then left printed documents at the bedside to utilize for carry-over. The patient presented with minimal to no risks for aspiration/penetration at this time. However, if her SOB increases during PO intake, when she takes a large inspiratory breath, she has risks for food particles from BOT to be inhaled. OPERATIONS DIRECTOR recommends she keep oral cavity clean during her PO intake to reduce this aspiration/penetration risk. The OPERATIONS DIRECTOR recommends the patient begin to utilize the strategies independently. She demonstrated use of posture and pacing during the evaluation given verbal cues and 1x training. At this time, evaluation only will be completed. Please refer to OPERATIONS DIRECTOR if future training needed with safe swallowing precautions, GERD precautions, and breath support to reduce pt's risks for potential penetration/aspiration. Pt is recommended to continue a regular diet texture with thin liquids and medications whole with liquids. Further Therapy Indicated?: No Comments: EVAL only this date. Functional Reporting G Codes: n/a Severity Impairment Rationale: n/a Plan Duration of Treatment: One Time Treatment Anticipated Discharge Destination: Home Comments: Evaluation only to assess pt's risks for aspiration due to multiple episodes with pneumonia. Pt has minimal to no risks for aspiration/penetration. OPERATIONS DIRECTOR recommends utilizing safe swallow/aspiration precautions and strategies to reduce SOB episodes with PO intake. Pt ok for regular diet and thin liquids. Treatment Code (1) Pneumonia: Code(s): J18.9 - Pneumonia, unspecified organism (2) COPD (chronic obstructive pulmonary disease): Code(s): J44.9 - Chronic obstructive pulmonary disease, unspecified
[2023-03-28] MEDS ORDERED: SODIUM CHLORIDE 1,000 ML IV SCH (17:00)
[2023-03-28] MEDS: CRESTOR PO SCH (17:07)
[2023-03-28] MEDS: NORVASC PO SCH (20:47)
[2023-03-28] MEDS: REQUIP PO SCH (20:47)
[2023-03-28] MEDS: CELEXA PO SCH (20:47)
[2023-03-28] MEDS: HUMALOG SUBCUT PRN (20:56)
[2023-03-29] MEDS: DUONEB NEB SCH ×2 (04:35→13:02)
[2023-03-29] MEDS: PERCOCET 10-325 PO SCH ×2 (05:26→13:51)
[2023-03-29 05:33] LABS: BASOPHILS % (AUTO) 0.1 % (0.0-3.0); HEMATOCRIT 40.2 % (37.0-47.0); HEMOGLOBIN 12.8 g/dl (12.0-16.0); IMMATURE GRANULOCYTE # (AUTO) 0.1 (0.0-1.0); IMMATURE GRANULOCYTE % (AUTO) 0.7 % (0.0-5.0); LYMPHOCYTES # (AUTO) 0.6 K/uL (0.60-3.4); LYMPHOCYTES % (AUTO) 6.3 (10.0-50.0); MEAN CORPUSCULAR HEMOGLOBIN 30.4 pg (27.0-31.0); MEAN CORPUSCULAR HGB CONC 31.8 (31.8-35.4); MEAN CORPUSCULAR VOLUME 95.5 fl (81.0-99.0); MONOCYTES # (AUTO) 0.3 K/uL (0.4-2.0); MONOCYTES % (AUTO) 2.6 (0-10); NEUTROPHILS # (AUTO) 9.2 K/ul (2.0-6.9); NEUTROPHILS % (AUTO) 90.3 % (42.2-75.2); PLATELET COUNT 170 10^3/uL (140-440); RDW COEFFICIENT OF VARIATION 13.2 % (11.6-14.8); RED BLOOD COUNT 4.21 10^6/ul (4.20-5.40); WHITE BLOOD COUNT 10.18 K/ul (4.6-10.2)
[2023-03-29 05:49] LABS: ALANINE AMINOTRANSFERASE 22.3 U/L (0-35); ALBUMIN 3.45 g/dL (3.5-5.0); ALKALINE PHOSPHATASE 52.5 U/L (53-141); ASPARTATE AMINO TRANSFERASE 21.8 U/L (14-36); BILIRUBIN,TOTAL 0.17 mg/dL (0.2-1.3); BLOOD UREA NITROGEN 24.6 mg/dL (7-17); CALCIUM 8.47 mg/dL (8.4-10.2); CARBON DIOXIDE 32.8 mmol/L (22-30.0); CHLORIDE 106.1 mmol/L (98-107); CREATININE 0.79 mg/dL (0.60-1.30); GLUCOSE 233.5 mg/dL (74-106); POTASSIUM 4.33 mmol/L (3.5-5.1); SODIUM 139.9 mmol/L (134.5-145); TOTAL PROTEIN 6.39 g/dL (6.3-8.2)
[2023-03-29] MEDS: PROTONIX PO SCH (06:18)
[2023-03-29] MEDS: SYNTHROID PO SCH (06:18)
[2023-03-29] MEDS: HUMALOG SUBCUT PRN (06:18)
[2023-03-29] MEDS: SPIRIVA IH SCH (09:01)
[2023-03-29] MEDS: SYMBICORT 160-4.5 MCG INHALER IH SCH (09:01)
[2023-03-29] MEDS: TOPROL XL PO SCH (09:03)
[2023-03-29] MEDS: PLAVIX PO SCH (09:03)
[2023-03-29] MEDS: SOLU-MEDROL 40 MG IVP SCH (09:03)
[2023-03-29] MEDS: LOVENOX SUBCUT SCH (09:04)
[2023-03-29] MEDS: ROCEPHIN 1 GM/50 ML D5W 1 GM/50 ML BAG IV SCH (09:05)
[2023-03-29] MEDS: ZITHROMAX 500 MG in SODIUM CHLORIDE 250 ML IV SCH (10:27)
--- NOTE | 2023-03-29 11:17 | DCSUM ---
Hospital Provider Hospital Provider: MARZENA MORE, [facility] Primary Care Physician Primary Care Physician: SIA DOMINGUEZ MD Summary of History and Physical Summary of History and Physical: Patient is a 72 year old female from home with pmhx of COPD with chronic respiratory failure requiring 2L at night, ANGELINA, hyperlipidemia, hypertension, b12 deficiency, CAD s/p 1 stent, restless leg syndrome who presents to ER for sob since . She has been wearing her O2 all day instead of only at night. Has a productive cough. Has been wheezing significantly. Has been using her inhalers at home without relief. Last hospitalization for COPD was two years ago. She has ANGELINA but has not worn her cpap in over a year. In ER she was noted to have a fever, low O2, and increased RR. She was given a a liter of fluid, tylenol, duoneb, steroids, and antibiotics. CXR showed possible virgie pneumonia. ABG showed low O2. She was admitted to med surg for further treatment. Per nursing staff patient desaturated into 80s with ambulation to rest room this morning. 1. Acute hypoxic respiratory failure in setting of acute COPD exacerbation and pneumonia - Dubnebs, rocephin/azith, solumedrol 40 q8hrs IV. CTA negative for PE. Wean O2 to baseline when able (wears 2L at night usually.) 2. Acute COPD exacerbation - Plan as above. 3. Community acquired pneumonia, right, likely bacterial - Plan as above. 4. Sepsis in setting of CAP - Patient received 30 ml/kg of fluid (2250 total). She appears euvolemic at this time. LA was normal. BC pending. Continue antibiotics. 5. Hyperglycemia in setting of steroid use - Will cover with sliding scale insulin. Accuchecks achs. Check a1c in AM. 6. Hypertension - Chronic, stable. Continue home amlodipine and metoprolol. 7. Hyperlipidemia - Chronic, stable. Continue home statin. 8. CAD requiring 1 stent in 2005 - Chronic, stable. Continue home plavix. 9. B 12 deficiency - Chronic stable. Hold home b12 10. Anxiety - Chronic, stable. Continue home celexa. 11. Hypothyroidism - Chronic, stable. Continue home levothyroxine. 12. Osteoarthritis - Chronic, stable. Continue home hydrocodone. 13. Restless legs syndrome - Chronic, stable. Continue home ropinirole. Hospital Course Subjective: Received rocephin, azithromycin, and solumedrol throughout course of stay. Weaned to home O2. Patient feeling much better today. Wheezing very minimal at this time. Requesting to go home. Blood cultures negative x2. Appearance: Pleasant, No Apparent Distress, Alert, Well-appearing and Well- nourished HEENT: MMM, Supple and No JVD CVS: No Murmur, No Rubs, No Gallop and No JVD Abdomen: Soft and Non-Tender Respiratory: No Wheezing Extremities: No Edema Vital Signs: Most Recent Vital Signs Temperature 97.2 F L 03/29/23 05:20 Temperature Source Temporal Artery Scan 03/29/23 05:20 Temperature Source Infrared 03/26/23 15:39 Pulse Rate 61 03/29/23 05:20 Respiratory Rate 16 03/29/23 05:20 Blood Pressure 110/60 03/29/23 05:20 Blood Pressure Mean 76 03/29/23 05:20 Blood Pressure Right Arm 116/65 03/26/23 18:17 Blood Pressure Location Left Arm 03/29/23 05:20 Blood Pressure Position Supine 03/29/23 05:20 O2 Sat by Pulse Oximetry 99 03/29/23 09:35 Oxygen Delivery Method Nasal Cannula 03/29/23 09:35 Oxygen Flow Rate 3 03/29/23 09:35 Height 5 ft 1 in 03/26/23 18:17 Weight 167 lb 7 oz 03/26/23 18:17 Telemetry Type Remote Telemetry 03/29/23 07:00 Telemetry Monitoring Continues 03/29/23 07:00 Irregular Telemetry Rate (Approximate) 50-60 BPM 03/29/23 01:00 Telemetry Heart Rate 54 L 03/29/23 07:00 Telemetry SPO2 97 03/29/23 07:00 EKG WY Interval 0.14 03/29/23 07:00 EKG QRS Interval 0.12 H 03/29/23 07:00 EKG QT Interval 0.48 H 03/29/23 01:00 Telemetry Strip Reading SB WITH BBB 03/29/23 07:00 Lab Results Last 24 Hours: 03/29/23 05:00 WBC 10.18 RBC 4.21 Hgb 12.8 Hct 40.2 MCV 95.5 MCH 30.4 MCHC 31.8 RDW Coeff of Melody 13.2 Plt Count 170 Immature Gran % (Auto) 0.7 Neut % (Auto) 90.3 H Lymph % (Auto) 6.3 L Garrett % (Auto) 2.6 Eos % (Auto) 0.0 Baso % (Auto) 0.1 Neut # (Auto) 9.2 H Lymph # (Auto) 0.6 Garrett # (Auto) 0.3 L Eos # (Auto) 0.0 Baso # (Auto) 0.0 Immature Gran # (Auto) 0.1 Sodium 139.9 Potassium 4.33 Chloride 106.1 Carbon Dioxide 32.8 H Anion Gap 5.33 BUN 24.6 H Creatinine 0.79 Estimated GFR (MDRD) 72.00 BUN/Creatinine Ratio 31.13 Glucose 233.5 H Calcium 8.47 Total Bilirubin 0.17 L AST 21.8 ALT 22.3 Alkaline Phosphatase 52.5 L Total Protein 6.39 Albumin 3.45 L Globulin 2.94 Albumin/Globulin Ratio 1.17 Discharge Instructions Discharge Planning: Discharge Planning > 40 minutes Cardiac diet Activity as tolerated. Prednisone 20 mg PO x 4 days and Azithromycin PO x 4 days Follow-up with pulmonary as discussed with discharge planning. Follow-up with PCP within 1 week Medications Given This Visit: Medications Generic Name Dose Route Start Last Admin Trade Name Freq PRN Reason Stop Dose Admin Acetaminophen 650 mg 03/26/23 18:04 Acetaminophen 325 Mg Tablet PO Q4-6H PRN Mild/Moderate Pain Albuterol/Ipratropium 3 ml 03/27/23 00:00 03/29/23 04:35 Ipratropium/Albuterol Vial.Neb NEB 3 ml RTQ6H MONE Administration Alprazolam 0.5 mg 03/26/23 21:12 Alprazolam 0.5 Mg Tablet PO DAILY PRN Anxiety Amlodipine Besylate 5 mg 03/27/23 21:00 03/28/23 20:47 Amlodipine Besylate 5 Mg Tablet PO 5 mg BEDTIME MONE Administration Budesonide/Formoterol Fumarate 2 puff 03/27/23 09:00 03/29/23 09:01 Budesonide/Formoterol Fumarate 160/4.5 Mcg Inhaler IH 2 puff BID MONE Administration Citalopram Hydrobromide 20 mg 03/26/23 21:30 03/28/23 20:47 Citalopram Hydrobromide 20 Mg Tablet PO 20 mg BEDTIME MONE Administration Clopidogrel Bisulfate 75 mg 03/26/23 21:30 03/29/23 09:03 Clopidogrel Bisulfate 75 Mg Tablet PO 75 mg DAILY MONE Administration Enoxaparin Sodium 40 mg 03/27/23 09:00 03/29/23 09:04 Enoxaparin Sodium 40 Mg/0.4 Ml Syr SUBCUT 40 mg DAILY MONE Administration CEFTRIAXONE/D5W 1 GM PREMIX 1 gm in 50 mls @ 75 mls/hr 03/27/23 09:00 03/29/23 09:05 Rocephin 1 Gm/50 Ml D5w IV 03/30/23 08:59 75 mls/hr DAILY MONE Administration Sodium Chloride 1,000 mls @ 30 mls/hr 03/28/23 17:00 03/28/23 17:03 Sodium Chloride IV 30 mls/hr .[id number] MONE Administration Insulin Human Lispro 0 unit 03/27/23 09:15 03/29/23 06:18 Insulin Lispro 100 Unit/Ml (3 Ml) Vial SUBCUT 4 unit PRN PRN Administration Hyperglycemia Protocol Levothyroxine Sodium 50 mcg 03/27/23 06:30 03/29/23 06:18 Levothyroxine Sodium 50 Mcg Tablet PO 50 mcg DAILY@0630 MONE Administration Methylprednisolone Sodium Succinate 40 mg 03/27/23 00:00 03/29/23 09:03 Methylprednisolone Sod Succ/Pf 40 Mg/Ml Vial IVP 40 mg 0000,0800,1600 MONE Administration Metoprolol Succinate 25 mg 03/26/23 21:30 03/29/23 09:03 Metoprolol Succinate 25 Mg Tab.Er.24h PO 25 mg DAILY MONE Administration Ondansetron HCl 4 mg 03/26/23 18:21 Ondansetron Hcl/Pf 4 Mg/2 Ml Sdv IVP Q6H PRN Nausea / Vomiting Oxycodone/Acetaminophen 1 tab 03/26/23 21:30 03/29/23 05:26 Oxycodone/Acetaminophen 10/325 Mg Tablet PO 1 tab Q8HR MONE Administration Pantoprazole Sodium 40 mg 03/27/23 06:30 03/29/23 06:18 Pantoprazole Sodium 40 Mg Tablet.Dr PO 40 mg QDAC MONE Administration Ropinirole HCl 0.25 mg 03/26/23 21:30 03/28/23 20:47 Ropinirole Hcl 0.25 Mg Tablet PO 0.25 mg BEDTIME MONE Administration Rosuvastatin Calcium 10 mg 03/26/23 21:30 03/28/23 17:07 Rosuvastatin Calcium 10 Mg Tablet PO 10 mg QPM MONE Administration Sodium Chloride 1 syr 03/27/23 23:38 0.9% Sodium Chloride 10 Ml Disp.Syrin IVF PRN PRN as needed Tiotropium [place] 1 cap 03/26/23 21:41 03/29/23 09:01 Tiotropium [place] 18 Mcg Cap.W.Dev IH 1 cap DAILY MONE Administration Tizanidine HCl 4 mg 03/26/23 21:35 Tizanidine Hcl 4 Mg Tablet PO BID PRN Pain Medications Given This Visit: Medications at Discharge (Home Meds & RX) omega 0-ira-dff-fish oil 300 mg-1,000 mg capsule 1 ea PO DAILY 12/02/17 calcium carbonate 600 mg-vitamin D3 5 mcg (200 unit) tablet (Calcium 600 + D(3)) 1 tab PO DAILY 02/06/21 citalopram 20 mg tablet (Celexa) 20 mg PO BEDTIME 02/06/21 cyanocobalamin (vitamin B-12) 500 mcg tablet 500 mcg PO DAILY 02/06/21 ipratropium 0.5 mg-albuterol 3 mg (2.5 mg base)/3 mL nebulization soln 3 ml inhalation Q6H PRN SOA, Wheezing 02/06/21 facial mask #1 ea 03/10/23 albuterol sulfate 90 mcg/actuation aerosol inhaler 2 puff inhalation Q6H PRN shortness of breath or wheezing 03/15/23 alprazolam 0.5 mg tablet 0.5 mg PO QDAY PRN anxiety #30 tabs 03/15/23 amlodipine 5 mg tablet 5 mg PO BEDTIME #90 tabs 03/15/23 clopidogrel 75 mg tablet See Rx Instructions .Route .COMPLEX #90 tabs 03/15/23 fluticasone fur. 100 mcg-umeclid 62.5 mcg-vilant 25 mcg inhalat.powder (Trelegy Ellipta) 1 inh inhalation QDAY 03/15/23 fluticasone propionate 50 mcg/actuation nasal spray,suspension (Flonase Allergy Relief) 1 spray intranasal QDAY PRN allergy symptoms #16 grams 04/25/23 levothyroxine 50 mcg tablet 50 mcg PO DAILY #90 tabs 03/15/23 metoprolol succinate 25 mg tablet,extended release 24 hr See Rx Instructions .Route .COMPLEX #90 tabs 03/15/23 oxycodone-acetaminophen 10 mg-325 mg tablet 1 tab PO Q8H 03/15/23 pantoprazole 40 mg tablet,delayed release (Protonix) 40 mg PO QDAC #90 tabs 03/15/23 potassium chloride 20 mEq tablet,extended release(part/cryst) (Klor-Con M) 20 meq PO DAILY #90 tabs 03/15/23 ropinirole 0.5 mg tablet See Rx Instructions .Route .COMPLEX #90 tabs 03/15/23 rosuvastatin 10 mg tablet See Rx Instructions .Route .COMPLEX #90 tabs 03/15/23 tizanidine 4 mg capsule (Zanaflex) 4 mg PO BID PRN Muscle spasms 03/15/23 nitroglycerin 0.4 mg sublingual tablet (Nitrostat) 0.4 mg PO PRN PRN Chest Pain #30 tabs 03/17/23 Discharge Plan Discharge Discharge Orders: Discharge Patient (ONCE); Ordered 03/29/23 Ordered By: ISIDRA TOBAR Activity Restrictions/Additional Instructions: YOU HAVE A FOLLOW UP APPOINTMENT WITH DR. DOMINGUEZ'S OFFICE ON March AT 34:40. SHOULD YOU HAVE ANY QUESTIONS OR NEED TO RESCHEDULE YOU CAN CONTACT THEIR OFFICE AT [phone] Cardiac diet Activity as tolerated. Prednisone 20 mg PO x 4 days and Azithromycin PO x 4 days Follow-up with pulmonary as discussed with discharge planning. Follow-up with PCP within 1 week Instructions: COPD (Chronic Obstructive Pulmonary Disease) (IP), Bacterial Pneumonia (IP) Patient Disposition: HOME SELF-CARE Prescriptions: New Spiriva with HandiHaler 18 mcg Capsule, W/Inhalation Device 1 cap inhalation DAILY 30 Days Qty: 30 0RF prednisone 20 mg tablet 20 mg PO BID Qty: 8 0RF azithromycin 500 mg tablet 500 mg PO DAILY Qty: 4 0RF Continued (DME) facial mask Misc See Rx Instructions .ROUTE Qty: 1 0RF Rx Instructions: As directed nitroglycerin [Nitrostat] 0.4 mg tablet, sublingual 0.4 mg PO PRN PRN (Reason: Chest Pain) Qty: 30 5RF oxycodone-acetaminophen 10-325 mg tablet 1 tab PO Q8H tizanidine [Zanaflex] 4 mg capsule 4 mg PO BID PRN (Reason: Muscle spasms) omega 9-dwz-rgv-fish oil 1 EACH capsule 1 ea PO DAILY ipratropium-albuterol 0.5 mg-3 mg(2.5 mg base)/3 mL Solution For Nebulization 3 ml INHALATION Q6H PRN (Reason: SOA, Wheezing) calcium carbonate-vitamin D3 [Calcium 600 + D(3)] 600 mg(1,500mg) -200 unit Tablet 1 tab PO DAILY citalopram [Celexa] 20 mg Tablet 20 mg PO BEDTIME cyanocobalamin (vitamin B-12) 500 mcg Tablet 500 mcg PO DAILY Trelegy Ellipta 100-62.5-25 mcg blister with device 1 inh inhalation QDAY albuterol sulfate 90 mcg/actuation HFA aerosol inhaler 2 puff inhalation Q6H PRN (Reason: shortness of breath or wheezing) amlodipine 5 mg tablet 5 mg PO BEDTIME Qty: 90 1RF levothyroxine 50 mcg tablet 50 mcg PO DAILY Qty: 90 1RF metoprolol succinate 25 mg tablet extended release 24 hr See Rx Instructions .ROUTE .COMPLEX Qty: 90 1RF Dose Instruction: TAKE ONE TABLET DAILY Rx Instructions: TAKE ONE TABLET DAILY clopidogrel 75 mg tablet See Rx Instructions .ROUTE .COMPLEX Qty: 90 1RF Dose Instruction: TAKE ONE TABLET ONCE DAILY Rx Instructions: TAKE ONE TABLET ONCE DAILY ropinirole 0.5 mg tablet See Rx Instructions .ROUTE .COMPLEX Qty: 90 1RF Dose Instruction: TAKE ONE TABLET DAILY ONE TO THREE HOURS BEFORE BEDTIME Rx Instructions: TAKE ONE TABLET DAILY ONE TO THREE HOURS BEFORE BEDTIME fluticasone propionate [Flonase Allergy Relief] 50 mcg/actuation spray,suspension 1 spray intranasal QDAY PRN (Reason: allergy symptoms) Qty: 16 0RF Rx Instructions: administer into each nostril rosuvastatin 10 mg tablet See Rx Instructions .ROUTE .COMPLEX Qty: 90 1RF Dose Instruction: TAKE ONE TABLET DAILY Rx Instructions: TAKE ONE TABLET DAILY potassium chloride [Klor-Con M20] 20 mEq tablet,ER particles/crystals 20 meq PO DAILY Qty: 90 1RF alprazolam 0.5 mg tablet 0.5 mg PO QDAY PRN (Reason: anxiety) Qty: 30 0RF pantoprazole [Protonix] 40 mg tablet,delayed release (DR/EC) 40 mg PO QDAC Qty: 90 1RF Did you review [place] [employer] for ALL controlled substances?: No Discussed opioids are addictive and Narcan is available by prescription or from pharmacy.: No Condition: Fair
[2023-03-29 13:55] VITALS: BP 141/76; TEMP 97.6
== END 2023-03-29 14:15 | disposition home or self-care (01) | DRG 189 ==
LOC: ED 15:35 → MEDSURG A 17:11
PROVIDERS: ADMIT Physician Assistant; ATTEND Nurse Practitioner Family
DX: Z79.899 Other long term (current) drug therapy; J44.1 Chronic obstructive pulmonary disease with (acute) exacerbation; M16.0 Bilateral primary osteoarthritis of hip; E78.5 Hyperlipidemia, unspecified; E66.9 Obesity, unspecified; Z99.81 Dependence on supplemental oxygen; K52.9 Noninfective gastroenteritis and colitis, unspecified; Z68.31 Body mass index [BMI] 31.0-31.9, adult; J96.01 Acute respiratory failure with hypoxia; J18.9 Pneumonia, unspecified organism; Z79.01 Long term (current) use of anticoagulants; I25.10 Atherosclerotic heart disease of native coronary artery without angina pectoris; E03.9 Hypothyroidism, unspecified; F41.9 Anxiety disorder, unspecified; I10 Essential (primary) hypertension; Z20.822 Contact with and (suspected) exposure to COVID-19; G47.33 Obstructive sleep apnea (adult) (pediatric); R06.02 Shortness of breath; R73.9 Hyperglycemia, unspecified; D51.9 Vitamin B12 deficiency anemia, unspecified; J44.9 Chronic obstructive pulmonary disease, unspecified; G25.81 Restless legs syndrome; Z51.81 Encounter for therapeutic drug level monitoring; N28.1 Cyst of kidney, acquired; Z95.5 Presence of coronary angioplasty implant and graft; Z90.710 Acquired absence of both cervix and uterus; A41.9 Sepsis, unspecified organism; F17.210 Nicotine dependence, cigarettes, uncomplicated

== ENCOUNTER 2025-10-19 15:26 | Inpatient (IN) ==
--- NOTE | 2025-10-19 15:45 | ED.PDOC ---
General HPI ED Provider: Dr. DANIELA MACEDO MD Chief Complaint: Shortness of Air Stated Complaint: Cough and wheezing Time Seen by Provider: 10/19/25 15:43 Mode of Arrival: Walk-In Information Source: Patient, Family and Other (Old records) Exam Limitations: No limitations Primary Care Provider: COLLEEN GLOVER MD Nursing and Triage Documentation Reviewed and Agree: Yes Opioid Naive vs. Tolerant Does Patient Take Opioids?: Yes Is Patient Opioid Naive?: No What is Opioid Naive?: *Opioid Naive implies the patient is not already taking opioids or not chronically receiving opioids on a daily basis. *PRN dosing is not "usually" associated with tolerance. *Patients are at higher risk of over-sedation and aspiration. Is Patient Opioid Tolerant?: Yes What is Opioid Tolerant?: *Opioid Tolerance implies less than the expected response to an opioid. *Acquired tolerance is defined by the patient taking 60mg of oral morphine daily (or equianalgesic dose of another opioid) for 1 week or more. *Often associated with chronic pain. *May take more than usual dose to achieve desired pain control. Respiratory Complaint Exam Shortness of Air Complaint/Exam Onset/Duration: 3 weeks Symptoms Are: Worse Timing: Constant Initial Severity: Moderate Current Severity: Severe Character: Reports Dyspnea at rest and Dyspnea on exertion Aggravating: Reports URI, Smoke exposure and Weather Alleviating: Reports None Associated Signs and Symptoms: Reports Cough, Wheezing, Nasal congestion, Dizziness, Rapid breathing and Labored breathing; Denies Edema Related History: Reports Similar episode History of Healthcare-Acquired Pneumonia: No Pulmonary Embolism Risk Factors: Reports None Cardiac Risk Factors: Reports None Pseudomonas Risk Factors: Reports None Tuberculosis Risk Factors: Reports None Home Oxygen Use: Yes (1 to 2 L) Recent Stress Test: No Respiratory Distress: Moderate Stridor Present: No Tracheal Deviation: No Subcutaneous Emphysema: No Accessory Muscle Use: Yes Retractions: Not Present Diminished Breath Sounds: Yes Prolonged Expiratory Phase: Yes Unable to Speak Full Sentences: No Fatigue: No Leg Swelling: No Isha's Sign Present: No Grunting Respirations: No Kussmaul Respirations: No Differential Diagnoses: Asthma, CHF, Pulmonary Edema, COPD Exacerbation, Pneumonia, Bronchitis, Bronchospasm and URI Quality Indicators for AMI: Advised to stop smoking Review of Systems Review Of Systems Constitutional: Reports Weakness and Loss of appetite; Denies Chills, Fever or Malaise Eyes: Reports No symptoms Ears, Nose, Mouth, Throat: Reports Nose discharge; Denies Mouth pain or Throat pain Cardiac: Reports Lightheadedness and Syncope (1 mo ago) GI: Reports No symptoms : Reports No symptoms Musculoskeletal: Reports Back pain, Joint pain and Muscle stiffness Skin: Reports Bruising Neurological: Reports No symptoms Endocrine: Reports No symptoms Hematologic/Lymphatic: Reports No symptoms PFSH PFSH Medical History Former smoker Z87.891 - Personal history of nicotine dependence (ICD-10) Pneumonia J18.9 - Pneumonia, unspecified organism (ICD-10) COPD (chronic obstructive pulmonary disease) J44.9 - Chronic obstructive pulmonary disease, unspecified (ICD-10) Upper respiratory infection J06.9 - ACUTE UPPER RESPIRATORY INFECTION, UNSPECIFIED (ICD-10) Colitis K52.9 - NONINFECTIVE GASTROENTERITIS AND COLITIS, UNSPECIFIED (ICD-10) Family History FATHER Diabetes SISTER Emphysema of lung Cervical cancer BROTHER Emphysema of lung SISTER COPD (chronic obstructive pulmonary disease) BROTHER COPD (chronic obstructive pulmonary disease) Social History Smoking and tobacco status: Former smoker Quit date: 09/03/24 Tobacco: How many years used: 55 Quit status: considering quitting Second hand smoke exposure: No Smoking risk assessment performed: No Alcohol intake: never Substance use type: does not use Special tho needs: No Agree to transfusion: Yes Adopted: No Caregiver/support person: Yes Foster care: No Household members: spouse Housing: house Marital status: M Lives independently: Yes Number of children: 3 Number of grandchildren: 5 service: No senior living: No Current occupational status: retired History of recent travel: No Do you think of yourself as: straight/heterosexual Current gender identity: female Seatbelt use: always Drives intoxicated or rides with intoxicated driver's license examiner: No Current diet type/program: regular Water heater temperature set < 120 degrees: Yes Working smoke detector in home: Yes Fire extinguisher in home: No Carbon monoxide detector in home: No What type of physical activity do you participate in?: walking Surgical History History of hysterectomy Z90.710 - Acquired absence of both cervix and uterus (ICD-10) History of heart artery stent Z95.5 - Presence of coronary angioplasty implant and graft (ICD-10) Additional Medical History: Traumatic [employer] bleed 02/12 Female Reproductive History Menstrual Hx Hysterectomy: Yes Hx Tubal Ligation: No Physical Exam Physical Exam Appearance: Reports Ill-appearing and Well-nourished Ill-appearing: Moderate Pain Distress: None Eyes: Reports SUNDEEP, EOMI and Conjunctiva clear ENT: Reports Ears normal, Nose normal and Oropharynx normal Neck: Supple Respiratory: Reports Breath sounds diminished, Crackles and Wheezes Cardiovascular: Reports RRR, Pulses normal and No murmur GI/: Reports Soft, Nontender, No masses, Bowel sounds normal and No Organomegaly Musculoskeletal: Reports Normal strength, ROM intact, No edema and No calf tenderness Skin: Reports Warm and Dry; Denies Cyanotic Neurological: Reports Alert and Oriented Psychiatric: Reports Affect appropriate Interpretation Radiology Interpretation Radiology Interpretation By: ED Physician (By my independent interpretation) Radiology Results: Positive (Infiltrates and fibrosis compared to previous study done in 2020. Large hiatal hernia) Exam Interpreted: CXR (2 views) Physician Progress Note Physician Progress Note: Patient seen after arrival in triage. Here with her . Cough and congestion for almost 3 weeks. Seen by her primary 2 weeks ago. Given a shot of Rocephin and a steroid shot. Did not seem to help. Has been trying Mucinex without benefit. States today got worse and she felt like she needed to be seen. This is since the weather change. Continues to smoke. Has in the last several days but was down to half a pack a day. States she has blacked out from being short of breath. Last time was a month ago. Earlier this year she blacked out hit her head and had a [employer] bleed. Hospitalized for about 8 days at that time. No obvious retractions. Mild to moderate labored respirations. Wheezes diffusely. Decreased air exchange. Heart is regular murmurs gallops abdomen soft bowel sounds extremities no edema Orders placed for labs and chest x-ray. Orders placed for Solu-Medrol and IV Levaquin. 164-chest x-ray with fibrotic changes and possible infiltrate on right side. Somewhat better after the nebulizer treatment. Still wheezing excessively. Not as labored respirations. Repeat DuoNeb given. Will discuss with hospitalist about admission status Course Course 10/19/25 16:11 10/19/25 16:11 Orders, Labs, Meds: Lab Review 10/19/25 16:11 WBC 9.62 RBC 4.37 Hgb 13.0 Hct 42.4 MCV 97.0 MCH 29.7 MCHC 30.7 L RDW Coeff of Melody 12.8 Plt Count 163 Immature Gran % (Auto) 0.5 Neut % (Auto) 64.9 Lymph % (Auto) 20.5 [place] % (Auto) 11.3 H Eos % (Auto) 2.3 Baso % (Auto) 0.5 Neut # (Auto) 6.2 Lymph # (Auto) 2.0 [place] # (Auto) 1.1 Eos # (Auto) 0.2 Baso # (Auto) 0.1 Immature Gran # (Auto) 0.1 Sodium 136.8 Potassium 4.88 Chloride 101.9 Carbon Dioxide 31.9 H Anion Gap 7.88 BUN 22.4 H Creatinine 0.83 Estimated GFR (MDRD) 67.00 BUN/Creatinine Ratio 26.98 Glucose 101.8 Lactic Acid 0.68 L Calcium 9.26 Total Bilirubin 0.28 AST 34.4 ALT 20.9 Alkaline Phosphatase 57.9 NT-Pro-B Natriuret Pep 988 H Total Protein 7.26 Albumin 3.81 Globulin 3.45 Albumin/Globulin Ratio 1.10 Orders Category Date Time Status ADMIT PATIENT INPATIENT .TO [facility] [place] (MONITORED BED) ADMISSION 10/19/25 16:55 Active OXYGEN Routine CARDIO 10/19/25 16:57 Ordered ACTIVITY .BR with BRP CARE 10/19/25 16:55 Active INTAKE & OUTPUT Q8HR CARE 10/19/25 16:55 Active IP: INSERT SALINE LOCK ONCE CARE 10/19/25 16:55 Active TELEMETRY MONITORING TELE CARE 10/19/25 16:55 Active VITAL SIGNS Q4HR CARE 10/19/25 16:56 Active CARDIAC DIET DIETARY 10/19/25 Dinner Ordered CBC W/ AUTO DIFF Stat LAB 10/19/25 16:11 Completed CMP [COMPREHENSIVE METABOLIC PANEL] Stat LAB 10/19/25 16:11 Completed LACTIC ACID Stat LAB 10/19/25 16:11 Completed NT-PROBNP Stat LAB 10/19/25 16:11 Completed Ipratropium/Albuterol Neb [Duoneb] Meds 10/19/25 15:48 Discontinued 3 ml NEB ONCE ONE Ipratropium/Albuterol Neb [Duoneb] Meds 10/19/25 16:50 Discontinued 3 ml NEB ONCE ONE Levofloxacin/D5w [Levaquin 500 mg/100 ml D5w] Meds 10/19/25 15:48 Discontinued 500 mg in 100 ml IV ONCE Methylprednisolone Sod Succ/Pf [Solu-Medrol 125 mg] Meds 10/19/25 16:02 Discontinued 125 mg .ROUTE .STK-MED ONE Methylprednisolone Sod Succ/Pf [Solu-Medrol 125 mg] 125 Meds 10/19/25 15:48 Discontinued mg 0.9 % Sodium Chloride [Sodium Chloride] 50 ml IV ONCE RESUSCITATION STATUS Routine OTHERS 10/19/25 16:55 Ordered CXR [CHEST, 2 VIEWS PA & LAT] Stat RADS 10/19/25 15:48 Completed Medications Discontinued Medications Generic Name Dose Route Start Last Admin Trade Name Freq PRN Reason Stop Dose Admin Albuterol/Ipratropium 3 ml 10/19/25 15:48 10/19/25 16:08 Ipratropium/Albuterol Vial.Neb NEB 10/19/25 15:49 3 ml ONCE ONE Administration Albuterol/Ipratropium 3 ml 10/19/25 16:50 Ipratropium/Albuterol Vial.Neb NEB 10/19/25 16:51 ONCE ONE Methylprednisolone Sodium 52 mls @ 100 mls/hr 10/19/25 15:48 10/19/25 16:05 Succinate 125 mg/ Sodium IV 10/19/25 16:20 100 mls/hr Chloride ONCE ONE Administration Levofloxacin/Dextrose 500 mg in 100 mls @ 100 mls/hr 10/19/25 15:48 10/19/25 16:05 Levaquin 500 Mg/100 Ml D5w IV 10/19/25 16:47 100 mls/hr ONCE ONE Administration EXAM: CHEST RADIOGRAPH TECHNIQUE: Frontal and lateral views of the chest. HISTORY: Dyspnea COMPARISON: 09/02/24 FINDINGS: Emphysema with diffuse coarsening of the interstitial markings and suspected superimposed bibasilar fibrosis. Non consolidative hazy bibasilar opacities are unchanged and likely a component of the chronic interstitial disease. No new airspace opacities or focal consolidation. No pleural effusion or pneumothorax. Stable cardiomediastinal and hilar contours. Large hiatal hernia. Advanced right glenohumeral osteoarthritis. IMPRESSION: 1. Likely combination of emphysema and interstitial fibrosis with chronic bibasilar hazy opacities favored a component of the interstitial lung disease. 2. No new or acute cardiopulmonary process identified. 3. Large hiatal hernia. Electronically Signed By: Frederic Patel M.D. Signing Date: 2025-10-19 16:09 Vital Signs: Temp Pulse Resp BP Pulse Ox 10/19/25 15:36 98.6 F 68 26 H 120/63 91 L Discharge Plan Discharge Patient Disposition: ADMITTED INPATIENT Discharge Problem: Acute exacerbation of chronic obstructive pulmonary disease Community acquired pneumonia Qualifiers: Laterality: right Lung location: lower lobe of lung Qualified Code(s): J18.9 - Pneumonia, unspecified organism Chronic respiratory failure Qualifiers: Respiratory failure complication: hypoxia Qualified Code(s): J96.11 - Chronic respiratory failure with hypoxia Did you review [place] [employer]IVE for ALL controlled substances?: Not Applicable ED Provider: DANIELA MACEDO Condition: Fair
[2025-10-19] MEDS: SOLU-MEDROL 125 MG 125 MG in SODIUM CHLORIDE 50 ML IV ONE (16:05)
[2025-10-19] MEDS: LEVAQUIN 500 MG/100 ML D5W 500 MG/100 ML BAG IV ONE (16:05)
[2025-10-19] MEDS: DUONEB NEB ONE ×2 (16:08→17:23)
[2025-10-19] MEDS: SOLU-MEDROL 125 MG ONE (16:14)
--- NOTE | 2025-10-19 16:14 | DI ---
EXAM: CHEST RADIOGRAPH TECHNIQUE: Frontal and lateral views of the chest. HISTORY: Dyspnea COMPARISON: 09/02/24 FINDINGS: Emphysema with diffuse coarsening of the interstitial markings and suspected superimposed bibasilar fibrosis. Non consolidative hazy bibasilar opacities are unchanged and likely a component of the chronic interstitial disease. No new airspace opacities or focal consolidation. No pleural effusion or pneumothorax. Stable cardiomediastinal and hilar contours. Large hiatal hernia. Advanced right glenohumeral osteoarthritis. IMPRESSION: 1. Likely combination of emphysema and interstitial fibrosis with chronic bibasilar hazy opacities favored a component of the interstitial lung disease. 2. No new or acute cardiopulmonary process identified. 3. Large hiatal hernia.
[2025-10-19 16:20] LABS: IMMATURE GRANULOCYTE # (AUTO) 0.1 (0.0-1.0); IMMATURE GRANULOCYTE % (AUTO) 0.5 % (0.0-5.0); RDW COEFFICIENT OF VARIATION 12.8 % (11.6-14.8)
[2025-10-19 16:29] LABS: CREATININE 0.83 mg/dL (0.60-1.30)
[2025-10-19 17:37] LABS: BORDETELLA PARAPERTUSSIS (PCR) NOT DETECTED (NOT DETECT); BORDETELLA PERTUSSIS (PCR) NOT DETECTED (NOT DETECT); CHLAMYDIA PNEUMONIAE (PCR) NOT DETECTED (NOT DETECT); CORONAVIRUS 229E (PCR) NOT DETECTED (NOT DETECT); CORONAVIRUS HKU1 (PCR) NOT DETECTED (NOT DETECT); CORONAVIRUS NL63 (PCR) NOT DETECTED (NOT DETECT); CORONAVIRUS OC43 (PCR) NOT DETECTED (NOT DETECT); HUMAN METAPNEUMOVIRUS (PCR) NOT DETECTED (NOT DETECT); INFLUENZA A H1 (PCR) NOT DETECTED (NOT DETECT); INFLUENZA A H1-2009 (PCR) NOT DETECTED (NOT DETECT); INFLUENZA A H3 (PCR) NOT DETECTED (NOT DETECT); INFLUENZA B (PCR) NOT DETECTED (NOT DETECT); MYCOPLASMA PNEUMONIAE (PCR) NOT DETECTED (NOT DETECT); PARAINFLUENZA VIRUS 1 (PCR) NOT DETECTED (NOT DETECT); PARAINFLUENZA VIRUS 2 (PCR) NOT DETECTED (NOT DETECT); PARAINFLUENZA VIRUS 3 (PCR) NOT DETECTED (NOT DETECT); PARAINFLUENZA VIRUS 4 (PCR) NOT DETECTED (NOT DETECT); RESPIRATORY SYNCYTIAL V (PCR) NOT DETECTED (NOT DETECT); SARS_COV_2 (PCR) NOT DETECTED (NOT DETECT)
[2025-10-19 18:02] VITALS: BMI 26.4
[2025-10-19 18:26] LABS: ADENOVIRUS (PCR) NOT DETECTED (NOT DETECT); HUMAN RHINOVIRUS/ENTEROV (PCR) DETECTED (NOT DETECT)
[2025-10-19] MEDS: ROCEPHIN 1 GM/50 ML D5W 1 GM/50 ML BAG IV SCH (18:52)
[2025-10-19] MEDS: SOLU-MEDROL 40 MG IVP SCH (20:06)
[2025-10-19] MEDS: DOXYCYCLINE PO SCH (20:06)
[2025-10-19] MEDS ORDERED: XANAX PO PRN (20:22)
[2025-10-19] MEDS ORDERED: ZANAFLEX PO PRN (20:22)
[2025-10-19] MEDS: SYMBICORT 160-4.5 MCG INHALER IH SCH (22:12)
[2025-10-19] MEDS: REQUIP PO SCH (22:12)
[2025-10-20] MEDS: DUONEB NEB PRN (02:06)
[2025-10-20] MEDS: ROBITUSSIN DM SYRUP PO PRN (02:13)
[2025-10-20] MEDS: SYNTHROID PO SCH (05:31)
[2025-10-20 06:49] LABS: IMMATURE GRANULOCYTE # (AUTO) 0.1 (0.0-1.0); IMMATURE GRANULOCYTE % (AUTO) 0.8 % (0.0-5.0); RDW COEFFICIENT OF VARIATION 12.7 % (11.6-14.8)
[2025-10-20 07:02] LABS: CREATININE 0.72 mg/dL (0.60-1.30)
[2025-10-20] MEDS ORDERED: NON-FORMULARY MEDICATION (Fluticasone-Umeclidin-Vilanter [Trelegy Ellipta] 100-62.5-25 mcg IH SCH (09:00)
[2025-10-20] MEDS: SPIRIVA IH SCH (09:01)
[2025-10-20] MEDS: CELEXA PO SCH (09:01)
[2025-10-20] MEDS: K-DUR PO SCH (09:01)
[2025-10-20] MEDS: PLAVIX PO SCH (09:01)
[2025-10-20] MEDS: PROTONIX PO SCH (09:01)
[2025-10-20] MEDS: CRESTOR PO SCH (09:02)
--- NOTE | 2025-10-20 10:49 | PCM ---
Date of Service Date Seen by Provider: 10/20/25 Time Seen by Provider: 10:00 Admit Day/Time Admission Date: 10/19/25 Admission Time: 16:55 Reason for Admission Chief Complaint: CAP, ACUTE ON CHRONIC RESP FAILURE Hospital Provider Hospital Provider: LIA CASON PA-C, [facility] Primary Care Physician Primary Care Physician: COLLEEN GLOVER MD History of Present Illness History of Present Illness: Patient is a 75 year old female with a PMH of COPD, obstructive sleep apnea, dyslipidemia, CAD, HTN, and hypothyroidism. She arrived to the ED yesterday due to worsening dyspnea and cough over the past few days. She had went to her PCP a few days ago and was prescribed steroids and antibiotics without improvement. She states her O2 sat dropped into the 60s before coming to the ER; it was 91% when she arrived. Chest xray showed emphysema and pulmonary opacities with no acute processes identified. Viral panel came back Rhinovirus positive. Labs are within normal limits. Today she is not short of breath at rest. She is on 4L of oxygen, baseline is 2 L. She has a productive cough, weakness, and fatigue. She has a history of 3 falls this year due to not wearing her oxygen when up and moving around her house and leaving her house. She has since started wearing her oxygen at all times. States her O2 usually runs around 92-94% at rest but will drop into the 80s with ambulation. Admitted to inpatient. Case Discussed With Case Discussed With: Patient's case was discussed with the ER Physicians, Dr. Poole [facility] Medical History Former smoker Z87.891 - Personal history of nicotine dependence (ICD-10) Pneumonia J18.9 - Pneumonia, unspecified organism (ICD-10) COPD (chronic obstructive pulmonary disease) J44.9 - Chronic obstructive pulmonary disease, unspecified (ICD-10) Upper respiratory infection J06.9 - ACUTE UPPER RESPIRATORY INFECTION, UNSPECIFIED (ICD-10) Colitis K52.9 - NONINFECTIVE GASTROENTERITIS AND COLITIS, UNSPECIFIED (ICD-10) Surgical History History of hysterectomy Z90.710 - Acquired absence of both cervix and uterus (ICD-10) History of heart artery stent Z95.5 - Presence of coronary angioplasty implant and graft (ICD-10) Family History FATHER Diabetes SISTER Emphysema of lung Cervical cancer BROTHER Emphysema of lung SISTER COPD (chronic obstructive pulmonary disease) BROTHER COPD (chronic obstructive pulmonary disease) Social History Smoking and tobacco status: Former smoker Quit date: 09/03/24 Tobacco: How many years used: 55 Quit status: considering quitting Second hand smoke exposure: No Smoking risk assessment performed: No Alcohol intake: never Substance use type: does not use Special tho needs: No Agree to transfusion: Yes Adopted: No Caregiver/support person: Yes Foster care: No Household members: spouse Housing: house Marital status: M Lives independently: Yes Number of children: 3 Number of grandchildren: 5 service: No senior care: No Current occupational status: retired History of recent travel: No Do you think of yourself as: straight/heterosexual Current gender identity: female Seatbelt use: always Drives intoxicated or rides with intoxicated trolley coach driver: No Current diet type/program: regular Water heater temperature set < 120 degrees: Yes Working smoke detector in home: Yes Fire extinguisher in home: No Carbon monoxide detector in home: No What type of physical activity do you participate in?: walking Allergies Allergies Allergy/AdvReac Type Severity Reaction Status Date / Time No Known Allergies Allergy Verified 10/19/25 15:40 Current Medications Home Medications Albuterol/Ipratropium (Ipratropium/Albuterol Vial.Neb) 3 ml NEB RTQ4H PRN PRN Reason: Wheezing Last Admin: 10/20/25 02:06 Dose: 3 ml Alprazolam (Alprazolam 0.5 Mg Tablet) 0.5 mg PO DAILY PRN PRN Reason: ANXIETY Benzonatate (Benzonatate 100 Mg Capsule) 100 mg PO TID PRN PRN Reason: Cough Budesonide/Formoterol Fumarate (Budesonide/Formoterol Fumarate 160/4.5 Mcg Inhaler) 2 puff IH BID MONE Last Admin: 10/20/25 09:01 Dose: 2 puff Citalopram Hydrobromide (Citalopram Hydrobromide 20 Mg Tablet) 40 mg PO DAILY [facility] Last Admin: 10/20/25 09:01 Dose: 40 mg Clopidogrel Bisulfate (Clopidogrel Bisulfate 75 Mg Tablet) 75 mg PO DAILY [facility] Last Admin: 10/20/25 09:01 Dose: 75 mg Doxycycline Hyclate (Doxycycline Hyclate 100 Mg Capsule) 100 mg PO Q12HR [facility] Stop: 10/24/25 09:01 Last Admin: 10/20/25 09:01 Dose: 100 mg Guaifenesin/Dextromethorphan (Guaifenesin/Dextromethorphan 200/20 Mg/10 Ml Cup) 10 ml PO Q4H PRN PRN Reason: Cough Last Admin: 10/20/25 02:13 Dose: 10 ml CEFTRIAXONE/D5W 1 GM PREMIX (Rocephin 1 Gm/50 Ml D5w) 1 gm in 50 mls @ 100 mls/ hr IV DAILY [facility] Stop: 10/22/25 17:04 Last Admin: 10/20/25 09:01 Dose: 100 mls/hr Levothyroxine Sodium (Levothyroxine Sodium 50 Mcg Tablet) 50 mcg PO DAILY@0630 [facility] Last Admin: 10/20/25 05:31 Dose: 50 mcg Methylprednisolone Sodium Succinate (Methylprednisolone Sod Succ/Pf 40 Mg/Ml Vial) 40 mg IVP Q8HR [facility] Last Admin: 10/20/25 05:13 Dose: 40 mg Non-Formulary Medication (Fluticasone Propionate) 1 inh IH BID [facility] Last Admin: 10/20/25 11:27 Dose: Not Given Oxycodone/Acetaminophen (Oxycodone/Acetaminophen 10/325 Mg Tablet) 1 tab PO Q8H PRN PRN Reason: moderate pain Pantoprazole Sodium (Pantoprazole Sodium 40 Mg Tablet.Dr) 40 mg PO QDAC2 [facility] Last Admin: 10/20/25 09:01 Dose: 40 mg Potassium Chloride (Potassium Chloride 20 Meq Tab) 20 meq PO DAILY [facility] Last Admin: 10/20/25 09:01 Dose: 20 meq Ropinirole HCl (Ropinirole Hcl 0.25 Mg Tablet) 0.5 mg PO DAILY [facility] Last Admin: 10/20/25 09:01 Dose: 0.5 mg Rosuvastatin Calcium (Rosuvastatin Calcium 10 Mg Tablet) 10 mg PO DAILY [facility] Last Admin: 10/20/25 09:02 Dose: 10 mg Tiotropium [place] (Tiotropium [place] 18 Mcg Cap.W.Dev) 1 cap IH DAILY MONE Last Admin: 10/20/25 09:01 Dose: 1 cap Tizanidine HCl (Tizanidine Hcl 4 Mg Tablet) 4 mg PO 2XD PRN PRN Reason: muscle spasm omega 4-[id number]-uym-fish oil 300 mg-1,000 mg capsule 1 ea PO DAILY 12/02/17 [History Confirmed 10/19/25] calcium 600 mg (as carbonate)-vitamin D3 5 mcg (200 unit) tablet (Calcium 600 + D(3)) 1 tab PO DAILY 02/06/21 [History Confirmed 10/19/25] cyanocobalamin (vitamin B-12) 500 mcg tablet 500 mcg PO DAILY 02/06/21 [History Confirmed 10/19/25] ipratropium 0.5 mg-albuterol 3 mg (2.5 mg base)/3 mL nebulization soln 3 ml inhalation Q6H PRN SOA, Wheezing 02/06/21 [History Confirmed 10/19/25] facial mask #1 ea 03/10/23 [Rx Confirmed 10/19/25] fluticasone propionate 50 mcg/actuation nasal spray,suspension (Flonase Allergy Relief) 1 spray intranasal QDAY PRN allergy symptoms #16 grams 03/15/23 [Rx Confirmed 10/19/25] nitroglycerin 0.4 mg sublingual tablet (Nitrostat) 0.4 mg PO PRN PRN Chest Pain #90 tabs 04/28/23 [Rx Confirmed 10/19/25] albuterol sulfate 90 mcg/actuation aerosol inhaler 2 puff inhalation Q6H PRN shortness of breath or wheezing #6.7 grams 06/06/23 [Rx Confirmed 10/19/25] cyclobenzaprine 10 mg tablet 10 mg PO TID PRN muscle spasm #30 tabs 07/09/24 [Rx Confirmed 10/19/25] tizanidine 4 mg tablet 4 mg PO 2XD PRN for muscle spasm #180 tabs 07/09/24 [Rx Confirmed 10/19/25] fluticasone fur. 100 mcg-umeclid 62.5 mcg-vilant 25 mcg inhalat.powder (Trelegy Ellipta) 1 ea inhalation DAILY #180 ea 08/06/24 [Rx Confirmed 10/19/25] lidocaine 5 % topical patch (DermacinRx Lidocan) 1 patch topical DAILY #15 ea 09/02/24 [Rx Confirmed 10/19/25] cetirizine 10 mg tablet (Zyrtec) 10 mg PO QDAY PRN allergies 10/17/24 [History Confirmed 10/19/25] fluticasone propionate 50 mcg/actuation blister powder for inhalation 1 inh inhalation BID 10/17/24 [History Confirmed 10/19/25] alprazolam 0.5 mg tablet 0.5 mg PO QDAY PRN anxiety #90 tabs 05/30/25 [Rx Confirmed 10/19/25] clopidogrel 75 mg tablet 75 mg PO DAILY #90 ea 06/06/25 [Rx Confirmed 10/19/25] citalopram 40 mg tablet 40 mg PO DAILY #90 tabs 07/01/25 [Rx Confirmed 10/19/25] levothyroxine 50 mcg tablet 50 mcg PO DAILY #90 tabs 07/01/25 [Rx Confirmed 10/19/25] pantoprazole 40 mg tablet,delayed release 40 mg PO DAILY #90 tabs 07/01/25 [Rx Confirmed 10/19/25] potassium chloride 20 mEq tablet,extended release(part/cryst) 20 meq PO DAILY # 90 ea 07/01/25 [Rx Confirmed 10/19/25] ropinirole 0.5 mg tablet 0.5 mg PO DAILY #90 tabs 07/01/25 [Rx Confirmed 10/19/25] rosuvastatin 10 mg tablet 10 mg PO DAILY #90 tabs 07/01/25 [Rx Confirmed 10/19] oxycodone-acetaminophen 10 mg-325 mg tablet 1 tab PO Q8H #90 tabs 10/02/25 [Rx Confirmed 10/19/25] Opioid Naive vs. Tolerant Does Patient Take Opioids?: Yes Is Patient Opioid Naive?: No What is Opioid Naive?: *Opioid Naive implies the patient is not already taking opioids or not chr onically receiving opioids on a daily basis. *PRN dosing is not "usually" associated with tolerance. *Patients are at higher risk of over-sedation and aspiration. Is Patient Opioid Tolerant?: No What is Opioid Tolerant?: *Opioid Tolerance implies less than the expected response to an opioid. *Acquired tolerance is defined by the patient taking 60mg of oral morphine daily (or equianalgesic dose of another opioid) for 1 week or more. *Often associated with chronic pain. *May take more than usual dose to achieve desired pain control. Review of Systems Constitutional: Reports Fatigue and Weakness; Denies Fever or Chills Head: Reports Normocephalic and Atraumatic Nose: Reports No symptoms Throat: Reports No symptoms Cardiovascular: Denies Chest pain, Chest Pressure or Edema Respiratory: Reports Cough; Denies Shortness of air Gastrointestinal: Denies Nausea, Vomiting, Diarrhea or Constipation Genitourinary: Denies Dysuria or Frequency Neurological: Denies Headache or Dizziness Physical examination Most Recent Vital Signs: Most Recent Vital Signs Temperature 97.8 F 10/20/25 09:53 Temperature Source Oral 10/20/25 09:53 Temperature Source Oral 10/19/25 15:36 Pulse Rate 63 10/20/25 09:53 Respiratory Rate 15 10/20/25 09:53 Blood Pressure 132/65 10/20/25 09:53 Blood Pressure Mean 87 10/20/25 09:53 Blood Pressure Left Arm 122/61 10/19/25 17:47 Blood Pressure Location Right Arm 10/20/25 09:53 Blood Pressure Position Supine 10/20/25 09:53 O2 Sat by Pulse Oximetry 97 10/20/25 09:53 Oxygen Delivery Method Nasal Cannula 10/20/25 09:53 Oxygen Flow Rate 4 10/20/25 09:53 Height 5 ft 2 in 10/19/25 17:47 Weight 65.5 kg 10/19/25 17:47 Telemetry Type Bedside Monitor 10/20/25 01:00 Telemetry Monitoring Continues 10/20/25 01:00 Telemetry Heart Rate 56 L 10/20/25 01:00 Telemetry SPO2 95 10/20/25 01:00 EKG UT Interval 0.14 10/20/25 07:00 EKG QRS Interval 0.12 H 10/20/25 07:00 Telemetry Strip Reading SB with BBB 10/20/25 07:00 Appearance: Positive Well-nourished, No Apparent Distress and Alert and Oriented x3 Skin: Positive [place], Warm and Good Color HEENT: Positive Normocephalic and Atraumatic Neck: Positive Supple Chest/Lungs: Positive Symmetrical With Equal Breath Sounds, Rales and Wheezes; Negative Rhonci or Good Air Movement all 4 Lung [place] Heart: Positive RRR GI/: Positive Soft, Nontender, Bowel Sounds Normal and No Distention Musculoskeletal: Positive Not Examined Extremities: Negative Edema Neurological: Positive Sensation Intact, Motor intact, Cranial Nerves Intact, Alert and Oriented Psychiatric: Positive Oriented x4, Appropriate Mood, Appropriate Affect and Intact Memory Labs This Visit Labs This Visit: Labs This Visit 10/19/25 10/19/25 10/20/25 16:11 17:25 06:36 WBC 9.62 6.09 RBC 4.37 4.30 Hgb 13.0 12.7 Hct 42.4 41.4 MCV 97.0 96.3 MCH 29.7 29.5 MCHC 30.7 L 30.7 L RDW Coeff of Melody 12.8 12.7 Plt Count 163 177 Immature Gran % (Auto) 0.5 0.8 Neut % (Auto) 64.9 85.2 H Lymph % (Auto) 20.5 11.2 Haines % (Auto) 11.3 H 2.6 Eos % (Auto) 2.3 0.0 Baso % (Auto) 0.5 0.2 Neut # (Auto) 6.2 5.2 Lymph # (Auto) 2.0 0.7 [place]aines # (Auto) 1.1 0.2 L Eos # (Auto) 0.2 0.0 Baso # (Auto) 0.1 0.0 Immature Gran # (Auto) 0.1 0.1 Sodium 136.8 137.9 Potassium 4.88 5.05 Chloride 101.9 102.3 Carbon Dioxide 31.9 H 32.6 H Anion Gap 7.88 8.05 BUN 22.4 H 19.9 H Creatinine 0.83 0.72 Estimated GFR (MDRD) 67.00 79.00 BUN/Creatinine Ratio 26.98 27.63 Glucose 101.8 154.0 H D Lactic Acid 0.68 L Calcium 9.26 9.40 Total Bilirubin 0.28 0.27 AST 34.4 30.0 ALT 20.9 23.2 Alkaline Phosphatase 57.9 54.7 NT-Pro-B Natriuret Pep 988 H Total Protein 7.26 7.16 Albumin 3.81 3.74 Globulin 3.45 3.42 Albumin/Globulin Ratio 1.10 1.09 Adenovirus (PCR) Not detected B. pertussis DNA (PCR) Not detected B.parapertussis DNA PCR Not detected C. pneumoniae DNA (PCR) Not detected Coronavirus OC43 (PCR) Not detected Coronavirus HKU1 (PCR) Not detected Coronavirus 229E (PCR) Not detected Coronavirus NL63 (PCR) Not detected Human Metapneumovir PCR Not detected Influenza A (H1) PCR Not detected Influ A (H1N1/09) PCR Not detected Influenza A (H3) PCR Not detected Influenza Type A (PCR) Not detected Influenza B (RT-PCR) Not detected M. pneumoniae (PCR) Not detected Parainfluenza 1 (PCR) Not detected Parainfluenza 2 (PCR) Not detected Parainfluenza 3 (PCR) Not detected Parainfluenza 4 (PCR) Not detected RSV (PCR) Not detected Entero/Rhino (PCR) Detected H SARS-CoV-2 (PCR) Not detected Imaging Imaging: EXAM: CHEST RADIOGRAPH TECHNIQUE: Frontal and lateral views of the chest. HISTORY: Dyspnea COMPARISON: 09/02/24 FINDINGS: Emphysema with diffuse coarsening of the interstitial markings and suspected superimposed bibasilar fibrosis. Non consolidative hazy bibasilar opacities are unchanged and likely a component of the chronic interstitial disease. No new airspace opacities or focal consolidation. No pleural effusion or pneumothorax. Stable cardiomediastinal and hilar contours. Large hiatal hernia. Advanced right glenohumeral osteoarthritis. IMPRESSION: 1. Likely combination of emphysema and interstitial fibrosis with chronic bibasilar hazy opacities favored a component of the interstitial lung disease. 2. No new or acute cardiopulmonary process identified. 3. Large hiatal hernia. Review Statement Review Statement: I have independently reviewed and interpreted the labs/EKGs/imaging that were ordered by the ER provider. I have reviewed all outside records that are available currently in our EMR including imaging/notes/labs from previous visits. Plan Plan: 1. Acute COPD exacerbation due to rhinovirus - Steroids, ABX, duoneb. On 4L oxygen. Try to ween O2. 2. Acute hypoxic respiratory failure due to COPD exacerbation and Rhinovirus - Continue plan as above 3. hypothyroidism - Cont home meds 4. CAD - Cont home meds 5. Chronic pain, unspecified - Cont home meds 6. Hyperlipidemia - Cont home meds 7. GERD - Cont home meds DVT Prophylaxis: Ambulation Time Spent: Greater than 80 minutes spent with patient, 50% of the time spent with this patient was devoted to counseling and coordination of care. [facility]annin minutes spent discussing advance care planning. Admit to: Inpatient Discussed Plan of Care with Dr. Ron Murry Medications Medication Orders: Medications Ordered Category Date Time Status Alprazolam [Xanax] Meds 10/19/25 20:22 Active 0.5 mg PO DAILY PRN ANX Anxiety Benzonatate [Tessalon Perles] Meds 10/19/25 17:00 Active 100 mg PO TID PRN Budesonide/Formoterol Fumarate [Symbicort 160-4.5 Mcg Meds 10/19/25 21:00 Active Inhaler] 2 puff IH BID Ceftriaxone/D5w 1 gm Premix [Rocephin 1 gm/50 ml D5w] Meds 10/19/25 17:05 Active 1 gm in 50 ml IV DAILY Citalopram Hydrobromide [Celexa] Meds 10/20/25 09:00 Active 40 mg PO DAILY Clopidogrel Bisulfate [Plavix] Meds 10/20/25 09:00 Active 75 mg PO DAILY Doxycycline Hyclate [Doxycycline] Meds 10/19/25 21:00 Active 100 mg PO Q12HR Guaifenesin/Dextromethorphan [Robitussin Dm Syrup] Meds 10/19/25 17:00 Active 10 ml PO Q4H PRN Ipratropium/Albuterol Neb [Duoneb] Meds 10/19/25 17:02 Active 3 ml NEB RTQ4H PRN Levothyroxine Sodium [Synthroid] Meds 10/20/25 06:30 Active 50 mcg PO DAILY@0630 Methylprednisolone Sod Succ/Pf [Solu-Medrol 40 mg] Meds 10/19/25 21:00 Active 40 mg IVP Q8HR Oxycodone-Acetaminophen [Percocet 10-325] Meds 10/19/25 20:22 Active 1 tab PO Q8H PRN moderate pain Pantoprazole Sodium [Protonix] Meds 10/20/25 09:00 Active 40 mg PO QDAC2 Potassium Chloride [K-Dur] Meds 10/20/25 09:00 Active 20 meq PO DAILY Ropinirole HCl [Requip] Meds 10/19/25 21:00 Active 0.5 mg PO DAILY Rosuvastatin Calcium [Crestor] Meds 10/20/25 09:00 Active 10 mg PO DAILY Tiotropium [place] [Spiriva] Meds 10/20/25 09:00 Active 1 cap IH DAILY Tizanidine HCl [Zanaflex] Meds 10/19/25 20:22 Active 4 mg PO 2XD PRN muscle spasm muscle spasm fluticasone propionate Meds 10/19/25 21:00 Active 1 inh IH BID
[2025-10-20] MEDS: PERCOCET 10-325 PO PRN (20:10)
[2025-10-21 05:31] LABS: IMMATURE GRANULOCYTE # (AUTO) 0.1 (0.0-1.0); IMMATURE GRANULOCYTE % (AUTO) 0.6 % (0.0-5.0); RDW COEFFICIENT OF VARIATION 12.4 % (11.6-14.8)
[2025-10-21 05:49] LABS: CREATININE 0.77 mg/dL (0.60-1.30)
--- NOTE | 2025-10-21 09:24 | PCM.PROG ---
Date/Time Seen Date Seen by Provider: 10/21/25 Time Seen by Provider: 09:15 Provider Provider: MARZENA MORE, [facility] Chief Complaint Chief Complaint: CAP, ACUTE ON CHRONIC RESP FAILURE Subjective Subjective: Continues to require above baseline O2. Noted work of breathing at rest. Not feeling much better this am. Objective Appearance: Positive No Apparent Distress and Alert and Oriented x3 Chest/Lungs: Positive Symmetrical With Equal Breath Sounds, Wheezes and Good Air Movement all 4 Lung Vega; Negative Rales or Rhonci Heart: Positive RRR and Pulses Normal GI/: Positive Soft, Nontender, Bowel Sounds Normal and No Distention Musculoskeletal: Positive Not Examined Neurological: Positive Sensation Intact, Motor intact, Reflexes Intact, Alert an d Oriented Vital Signs Vital Signs: Vital Signs: Last 24 Hours 10/20/25 09:53 10/20/25 10:00 10/20/25 13:00 Temperature 97.8 F Temperature Source Oral Pulse Rate 63 Respiratory Rate 15 Blood Pressure 132/65 Blood Pressure Mean 87 Blood Pressure Location Right Arm Blood Pressure Position Supine O2 Sat by Pulse Oximetry 97 Oxygen Delivery Method Nasal Cannula Nasal Cannula Oxygen Flow Rate 4 4 Telemetry Type Bedside Monitor Telemetry Monitoring Continues Telemetry Heart Rate 62 Telemetry SPO2 96 EKG MS Interval 0.12 EKG QRS Interval 0.14 H Telemetry Strip Reading SR with BBB 10/20/25 14:00 10/20/25 14:00 10/20/25 18:00 Temperature 98.2 F 97.3 F L Temperature Source Temporal Artery Scan Temporal Artery Scan Pulse Rate 57 L 71 Respiratory Rate 20 Blood Pressure 127/71 140/83 Blood Pressure Mean 89 102 Blood Pressure Location Right Arm Blood Pressure Position Supine O2 Sat by Pulse Oximetry 95 94 L Oxygen Delivery Method Nasal Cannula Nasal Cannula Nasal Cannula Oxygen Flow Rate 4 4 4 Telemetry Type Telemetry Monitoring Telemetry Heart Rate Telemetry SPO2 EKG MS Interval EKG QRS Interval Telemetry Strip Reading 10/20/25 19:00 10/20/25 19:39 10/20/25 20:00 Temperature Temperature Source Pulse Rate Respiratory Rate Blood Pressure Blood Pressure Mean Blood Pressure Location Blood Pressure Position O2 Sat by Pulse Oximetry 95 Oxygen Delivery Method Nasal Cannula Nasal Cannula Oxygen Flow Rate 4 4 Telemetry Type Bedside Monitor Telemetry Monitoring Continues Telemetry Heart Rate 59 L Telemetry SPO2 95 EKG MS Interval 0.17 EKG QRS Interval 0.16 H Telemetry Strip Reading SB W/ BBB 10/20/25 22:00 10/21/25 01:00 10/21/25 01:31 Temperature 97.8 F 96.4 F L Temperature Source Oral Tympanic Pulse Rate 55 L 56 L Respiratory Rate 26 H 19 Blood Pressure 138/70 136/81 Blood Pressure Mean 92 99 Blood Pressure Location Right Arm Right Arm Blood Pressure Position Supine Supine O2 Sat by Pulse Oximetry 95 97 Oxygen Delivery Method Nasal Cannula Nasal Cannula Oxygen Flow Rate 4 4 Telemetry Type Bedside Monitor Telemetry Monitoring Continues Telemetry Heart Rate 61 Telemetry SPO2 97 EKG MS Interval 0.12 EKG QRS Interval 0.16 H Telemetry Strip Reading SR W/BBB 10/21/25 05:11 10/21/25 05:43 10/21/25 08:00 Temperature 97.4 F L Temperature Source Oral Pulse Rate 46 L Respiratory Rate 17 Blood Pressure 144/67 H Blood Pressure Mean 92 Blood Pressure Location Right Arm Blood Pressure Position Supine O2 Sat by Pulse Oximetry 97 97 Oxygen Delivery Method Nasal Cannula Nasal Cannula Nasal Cannula Oxygen Flow Rate 4 4 3 Telemetry Type Telemetry Monitoring Telemetry Heart Rate Telemetry SPO2 EKG MS Interval EKG QRS Interval Telemetry Strip Reading Lab Results Lab Results: Lab Results: Last 24 Hours 10/21/25 05:20 WBC 13.14 H D RBC 4.20 Hgb 12.6 Hct 40.4 MCV 96.2 MCH 30.0 MCHC 31.2 L RDW Coeff of Melody 12.4 Plt Count 190 Immature Gran % (Auto) 0.6 Neut % (Auto) 84.6 H Lymph % (Auto) 9.7 L [place] % (Auto) 4.9 Eos % (Auto) 0.0 Baso % (Auto) 0.2 Neut # (Auto) 11.1 H Lymph # (Auto) 1.3 [place] # (Auto) 0.6 Eos # (Auto) 0.0 Baso # (Auto) 0.0 Immature Gran # (Auto) 0.1 Sodium 137.3 Potassium 5.14 H Chloride 102.9 Carbon Dioxide 33.5 H Anion Gap 6.04 BUN 22.3 H Creatinine 0.77 Estimated GFR (MDRD) 73.00 BUN/Creatinine Ratio 28.96 Glucose 146.1 H Calcium 9.05 Total Bilirubin 0.18 L AST 31.3 ALT 33.5 Alkaline Phosphatase 49.8 L Total Protein 6.52 Albumin 3.45 L Globulin 3.07 Albumin/Globulin Ratio 1.12 Additional Comments Additional Comments: I have independently reviewed and interpreted the labs/EKGs/imaging ordered during this hospital stay. I have reviewed outside records that are available in our EMR that pertain to medical stay including imaging/notes/labs from previous visits. Active Medications Active Medications: Medications Generic Name Dose Route Start Last Admin Trade Name Freq PRN Reason Stop Dose Admin Albuterol/Ipratropium 3 ml 10/19/25 17:02 10/20/25 02:06 Ipratropium/Albuterol Vial.Neb NEB 3 ml RTQ4H PRN Administration Wheezing Alprazolam 0.5 mg 10/19/25 20:22 Alprazolam 0.5 Mg Tablet PO DAILY PRN ANXIETY Benzonatate 100 mg 10/19/25 17:00 Benzonatate 100 Mg Capsule PO TID PRN Cough Budesonide/Formoterol Fumarate 2 puff 10/19/25 21:00 10/20/25 20:11 Budesonide/Formoterol Fumarate 160/4.5 Mcg Inhaler IH 2 puff BID MONE Administration Citalopram Hydrobromide 40 mg 10/20/25 09:00 10/20/25 09:01 Citalopram Hydrobromide 20 Mg Tablet PO 40 mg DAILY MONE Administration Clopidogrel Bisulfate 75 mg 10/20/25 09:00 10/20/25 09:01 Clopidogrel Bisulfate 75 Mg Tablet PO 75 mg DAILY MONE Administration Doxycycline Hyclate 100 mg 10/19/25 21:00 10/20/25 20:10 Doxycycline Hyclate 100 Mg Capsule PO 10/24/25 09:01 100 mg Q12HR MONE Administration Guaifenesin/Dextromethorphan 10 ml 10/19/25 17:00 10/21/25 07:21 Guaifenesin/Dextromethorphan 200/20 Mg/10 Ml Cup PO 10 ml Q4H PRN Administration Cough CEFTRIAXONE/D5W 1 GM PREMIX 1 gm in 50 mls @ 100 mls/hr 10/19/25 17:05 10/20/25 09:01 Rocephin 1 Gm/50 Ml D5w IV 10/22/25 17:04 100 mls/hr DAILY MONE Administration Levothyroxine Sodium 50 mcg 10/20/25 06:30 10/21/25 05:36 Levothyroxine Sodium 50 Mcg Tablet PO 50 mcg DAILY@0630 MONE Administration Methylprednisolone Sodium Succinate 40 mg 10/19/25 21:00 10/21/25 05:40 Methylprednisolone Sod Succ/Pf 40 Mg/Ml Vial IVP 40 mg Q8HR MONE Administration Non-Formulary Medication 1 inh 10/19/25 21:00 10/20/25 23:44 Fluticasone Propionate IH Not Given BID MONE Oxycodone/Acetaminophen 1 tab 10/19/25 20:22 10/20/25 20:10 Oxycodone/Acetaminophen 10/325 Mg Tablet PO 1 tab Q8H PRN Administration moderate pain Pantoprazole Sodium 40 mg 10/20/25 09:00 10/21/25 05:36 Pantoprazole Sodium 40 Mg Tablet.Dr PO 40 mg QDAC2 MONE Administration Potassium Chloride 20 meq 10/20/25 09:00 10/20/25 09:01 Potassium Chloride 20 Meq Tab PO 20 meq DAILY MONE Administration Ropinirole HCl 0.5 mg 10/19/25 21:00 10/20/25 09:01 Ropinirole Hcl 0.25 Mg Tablet PO 0.5 mg DAILY MONE Administration Rosuvastatin Calcium 10 mg 10/20/25 09:00 10/20/25 09:02 Rosuvastatin Calcium 10 Mg Tablet PO 10 mg DAILY MONE Administration Tiotropium [place] 1 cap 10/20/25 09:00 10/20/25 09:01 Tiotropium [place] 18 Mcg Cap.W.Dev IH 1 cap DAILY MONE Administration Tizanidine HCl 4 mg 10/19/25 20:22 Tizanidine Hcl 4 Mg Tablet PO 2XD PRN muscle spasm Plan Plan: 1. Acute COPD exacerbation due to rhinovirus - Steroids, ABX, duoneb. requiring 3-4L this am, continue to wean to home O2 baseline 2. Acute hypoxic respiratory failure due to COPD exacerbation and Rhinovirus - Continue plan as above 3. Hypothyroidism - Cont home meds 4. CAD - Cont home meds 5. Chronic pain, unspecified - Cont home meds 6. Hyperlipidemia - Cont home meds 7. GERD - Cont home meds DVT Prophylaxis: Ambulation Review Statement Review Statement: I have personally discussed and reviewed the patient's visit/currently labs/imaging/decision making with Dr. Murry, my supervising attending. Greater that 50 minutes spent with patient, 50% of the time spent with this patient was devoted to counseling and coordination of care.
[2025-10-21] MEDS: TESSALON PERLES PO PRN (11:06)
[2025-10-21] MEDS: PREDNISONE PO SCH (14:59)
[2025-10-22 05:20] LABS: IMMATURE GRANULOCYTE # (AUTO) 0.1 (0.0-1.0); IMMATURE GRANULOCYTE % (AUTO) 0.8 % (0.0-5.0); RDW COEFFICIENT OF VARIATION 12.6 % (11.6-14.8)
[2025-10-22 05:32] VITALS: RESP 16
[2025-10-22 05:42] LABS: CREATININE 0.78 mg/dL (0.60-1.30)
--- NOTE | 2025-10-22 09:19 | DCSUM ---
Admission Date Admission Date: 10/19/25 Discharge Date Discharge Date: 10/22/25 Admission Diagnosis Admission Diagnosis: 1. Acute COPD exacerbation due to rhinovirus 2. Acute hypoxic respiratory failure due to COPD exacerbation and Rhinovirus Discharge Diagnosis Discharge Diagnosis: 1. Acute COPD exacerbation due to rhinovirus - Improving 2. Acute hypoxic respiratory failure due to COPD exacerbation and Rhinovirus - Resolved 3. Hypothyroidism - Chronic, stable 4. CAD - Chronic stable 5. Chronic pain, unspecified - Chronic, stable 6. Hyperlipidemia - Chronic, stable 7. GERD - Chronic, stable Hospital Provider Hospital Provider: MARZENA MORE, [facility] Primary Care Physician Primary Care Physician: COLLEEN GLOVER MD Summary of History and Physical Summary of History and Physical: Patient is a 75 year old female with a PMH of COPD, obstructive sleep apnea, dyslipidemia, CAD, HTN, and hypothyroidism. She arrived to the ED yesterday due to worsening dyspnea and cough over the past few days. She had went to her PCP a few days ago and was prescribed steroids and antibiotics without improvement. She states her O2 sat dropped into the 60s before coming to the ER; it was 91% when she arrived. Chest xray showed emphysema and pulmonary opacities with no acute processes identified. Viral panel came back Rhinovirus positive. Labs are within normal limits. Today she is not short of breath at rest. She is on 4L of oxygen, baseline is 2 L. She has a productive cough, weakness, and fatigue. She has a history of 3 falls this year due to not wearing her oxygen when up and moving around her house and leaving her house. She has since started wearing her oxygen at all times. States her O2 usually runs around 92-94% at rest but will drop into the 80s with ambulation. Admitted to inpatient. Hospital Course Subjective: During stay, patient was requiring up to 4L of oxygen. Able to be weaned down to home 2L as of yesterday evening. Sats remaining stable on ambulation. Treated for COPD exacerbation with rocephin and doxy as well as steroids and nebs. Feeling much better this am. Dc with rest of abx course with doxy and cefpodoxime. Follow-up with pcp upon discharge. Appearance: Pleasant, No Apparent Distress and Alert HEENT: MMM, Supple and No JVD CVS: No Murmur Abdomen: Soft, Non-Tender and No Distention Respiratory: No Dyspnea Extremities: No Edema Vital Signs: Most Recent Vital Signs Temperature 97.6 F 10/22/25 05:31 Temperature Source Oral 10/22/25 05:31 Temperature Source Oral 10/19/25 15:36 Pulse Rate 46 L 10/22/25 05:31 Respiratory Rate 16 10/22/25 05:31 Blood Pressure 131/65 10/22/25 05:31 Blood Pressure Mean 87 10/22/25 05:31 Blood Pressure Left Arm 122/61 10/19/25 17:47 Blood Pressure Location Left Arm 10/22/25 05:31 Blood Pressure Position Supine 10/22/25 05:31 O2 Sat by Pulse Oximetry 97 10/22/25 05:51 Oxygen Delivery Method Nasal Cannula 10/22/25 08:30 Oxygen Flow Rate 2 10/22/25 08:30 Height 5 ft 2 in 10/19/25 17:47 Weight 65.5 kg 10/19/25 17:47 Telemetry Type Bedside Monitor 10/22/25 07:00 Telemetry Monitoring Continues 10/22/25 07:00 Telemetry Heart Rate 49 L 10/22/25 07:00 Telemetry SPO2 97 10/22/25 07:00 EKG [place] Interval 0.14 10/22/25 07:00 EKG QRS Interval 0.17 H 10/22/25 07:00 Telemetry Strip Reading ODALYS GALDAMEZ 10/22/25 07:00 Imaging: EXAM: CHEST RADIOGRAPH TECHNIQUE: Frontal and lateral views of the chest. HISTORY: Dyspnea COMPARISON: 09/02/24 FINDINGS: Emphysema with diffuse coarsening of the interstitial markings and suspected superimposed bibasilar fibrosis. Non consolidative hazy bibasilar opacities are unchanged and likely a component of the chronic interstitial disease. No new airspace opacities or focal consolidation. No pleural effusion or pneumothorax. Stable cardiomediastinal and hilar contours. Large hiatal hernia. Advanced right glenohumeral osteoarthritis. IMPRESSION: 1. Likely combination of emphysema and interstitial fibrosis with chronic bibasilar hazy opacities favored a component of the interstitial lung disease. 2. No new or acute cardiopulmonary process identified. 3. Large hiatal hernia. Lab Results Last 24 Hours: 10/22/25 05:12 WBC 11.68 H RBC 4.25 Hgb 12.7 Hct 41.3 MCV 97.2 MCH 29.9 MCHC 30.8 L RDW Coeff of Melody 12.6 Plt Count 176 Immature Gran % (Auto) 0.8 Neut % (Auto) 72.9 Lymph % (Auto) 19.9 [place] % (Auto) 6.1 Eos % (Auto) 0.1 Baso % (Auto) 0.2 Neut # (Auto) 8.5 H Lymph # (Auto) 2.3 [place] # (Auto) 0.7 Eos # (Auto) 0.0 Baso # (Auto) 0.0 Immature Gran # (Auto) 0.1 Sodium 137.1 Potassium 5.00 Chloride 101.7 Carbon Dioxide 36.8 H Anion Gap 3.60 BUN 28.1 H Creatinine 0.78 Estimated GFR (MDRD) 72.00 BUN/Creatinine Ratio 36.02 Glucose 101.4 Calcium 9.27 Total Bilirubin 0.27 AST 39.5 H ALT 30.9 Alkaline Phosphatase 43.5 L Total Protein 6.57 Albumin 3.46 L Globulin 3.11 Albumin/Globulin Ratio 1.11 Discharge Instructions Discharge Planning: Discharge Planning > 40 minutes If patient is discharged with left ventricular systolic dysfunction: na Discharged with a beta eliseo? [] If no, why not? [] Discharged with an laquita/arb? [] If no, why not? [] Discharge Medications: Medications at Discharge (Home Meds & RX) omega 4-wmm-hvi-fish oil 300 mg-1,000 mg capsule 1 ea PO DAILY 12/02/17 calcium 600 mg (as carbonate)-vitamin D3 5 mcg (200 unit) tablet (Calcium 600 + D(3)) 1 tab PO DAILY 02/06/21 cyanocobalamin (vitamin B-12) 500 mcg tablet 500 mcg PO DAILY 02/06/21 ipratropium 0.5 mg-albuterol 3 mg (2.5 mg base)/3 mL nebulization soln 3 ml inhalation Q6H PRN SOA, Wheezing 02/06/21 facial mask #1 ea 03/10/23 fluticasone propionate 50 mcg/actuation nasal spray,suspension (Flonase Allergy Relief) 1 spray intranasal QDAY PRN allergy symptoms #16 grams 03/15/23 nitroglycerin 0.4 mg sublingual tablet (Nitrostat) 0.4 mg PO PRN PRN Chest Pain #90 tabs 04/28/23 albuterol sulfate 90 mcg/actuation aerosol inhaler 2 puff inhalation Q6H PRN shortness of breath or wheezing #6.7 grams 06/06/23 cyclobenzaprine 10 mg tablet 10 mg PO TID PRN muscle spasm #30 tabs 07/09/24 tizanidine 4 mg tablet 4 mg PO 2XD PRN for muscle spasm #180 tabs 07/09/24 fluticasone fur. 100 mcg-umeclid 62.5 mcg-vilant 25 mcg inhalat.powder (Trelegy Ellipta) 1 ea inhalation DAILY #180 ea 08/06/24 lidocaine 5 % topical patch (DermacinRx Lidocan) 1 patch topical DAILY #15 ea 09/02/24 cetirizine 10 mg tablet (Zyrtec) 10 mg PO QDAY PRN allergies 10/17/24 fluticasone propionate 50 mcg/actuation blister powder for inhalation 1 inh inhalation BID 10/17/24 alprazolam 0.5 mg tablet 0.5 mg PO QDAY PRN anxiety #90 tabs 05/30/25 clopidogrel 75 mg tablet 75 mg PO DAILY #90 ea 06/06/25 citalopram 40 mg tablet 40 mg PO DAILY #90 tabs 07/01/25 levothyroxine 50 mcg tablet 50 mcg PO DAILY #90 tabs 07/01/25 pantoprazole 40 mg tablet,delayed release 40 mg PO DAILY #90 tabs 07/01/25 potassium chloride 20 mEq tablet,extended release(part/cryst) 20 meq PO DAILY #90 ea 07/01/25 ropinirole 0.5 mg tablet 0.5 mg PO DAILY #90 tabs 07/01/25 rosuvastatin 10 mg tablet 10 mg PO DAILY #90 tabs 07/01/25 oxycodone-acetaminophen 10 mg-325 mg tablet 1 tab PO Q8H #90 tabs 10/02/25 cefpodoxime 200 mg tablet 200 mg PO Q12HR #3 tabs 10/22/25 doxycycline hyclate 100 mg capsule 100 mg PO Q12HR #4 caps 10/22/25 prednisone 10 mg tablet 10 mg PO DAILY #2 tabs 10/22/25 Discharge Plan Discharge Discharge Orders: Discharge Patient (ONCE); Ordered 10/22/25 Ordered By: ISIDRA TOBAR Activity Restrictions/Additional Instructions: DIAGNOSIS: COPD EXACERBATION, RHINOVIRUS DIET: REGULAR ACTIVITY TOLERATED OXYGEN: 2L AT REST, 3L WITH EXERTION MEDICATIONS: METROPOLIS DRUGS 2 * DOXYCYCLINE 100 MG TWICE A DAY - 4 DOSES LEFT * CEFPODOXIME 200 MG TWICE A DAY - 3 DOSES LEFT * PREDNISONE 10 MG DAILY X 3 DAYS CONTINUE TO USE YOUR NEBULIZER TREATMENTS ONCE RETURNING HOME AT LEAST EVERY 6 HOURS. FOLLOW-UP WITH YOUR PRIMARY CARE PROVIDER Instructions: COPD (Chronic Obstructive Pulmonary Disease) (GEN) Patient Disposition: HOME SELF-CARE Prescriptions: New prednisone 10 mg tablet 10 mg PO DAILY Qty: 2 0RF doxycycline hyclate 100 mg Capsule 100 mg PO Q12HR Qty: 4 0RF cefpodoxime 200 mg Tablet 200 mg PO Q12HR Qty: 3 0RF Continued (DME) facial mask Misc See Rx Instructions .ROUTE Qty: 1 0RF Rx Instructions: As directed nitroglycerin [Nitrostat] 0.4 mg tablet, sublingual 0.4 mg PO PRN PRN (Reason: Chest Pain) Qty: 90 1RF albuterol sulfate 90 mcg/actuation HFA aerosol inhaler 2 puff inhalation Q6H PRN (Reason: shortness of breath or wheezing) Qty: 6.7 1RF Rx Instructions: NINETY DAY SUPPLY WITH ONE REFILL tizanidine 4 mg tablet 4 mg PO 2XD PRN (Reason: for muscle spasm) Qty: 180 1RF Trelegy Ellipta 100-62.5-25 mcg blister with device 1 ea inhalation DAILY Qty: 180 1RF alprazolam 0.5 mg tablet 0.5 mg PO QDAY PRN (Reason: anxiety) Qty: 90 1RF levothyroxine 50 mcg tablet 50 mcg PO DAILY Qty: 90 1RF ropinirole 0.5 mg tablet 0.5 mg PO DAILY Qty: 90 1RF potassium chloride 20 mEq tablet,ER particles/crystals 20 meq PO DAILY Qty: 90 1RF pantoprazole 40 mg tablet,delayed release (DR/EC) 40 mg PO DAILY Qty: 90 1RF citalopram 40 mg tablet 40 mg PO DAILY Qty: 90 1RF rosuvastatin 10 mg tablet 10 mg PO DAILY Qty: 90 1RF oxycodone-acetaminophen 10-325 mg tablet 1 tab PO Q8H Qty: 90 0RF omega 3-vub-tnh-fish oil 1 EACH capsule 1 ea PO DAILY ipratropium-albuterol 0.5 mg-3 mg(2.5 mg base)/3 mL Solution For Nebulization 3 ml INHALATION Q6H PRN (Reason: SOA, Wheezing) calcium carbonate-vitamin D3 [Calcium 600 + D(3)] 600 mg(1,500mg) -200 unit Tablet 1 tab PO DAILY cyanocobalamin (vitamin B-12) 500 mcg Tablet 500 mcg PO DAILY cyclobenzaprine 10 mg tablet 10 mg PO TID PRN (Reason: muscle spasm) Qty: 30 0RF lidocaine [DermacinRx Lidocan] 5 % adhesive patch,medicated 1 patch topical DAILY Qty: 15 0RF Rx Instructions: leave on most painful area for up to 12 hrs fluticasone propionate [Flonase Allergy Relief] 50 mcg/actuation spray,suspension 1 spray intranasal QDAY PRN (Reason: allergy symptoms) Qty: 16 0RF Rx Instructions: administer into each nostril cetirizine [Zyrtec] 10 mg tablet 10 mg PO QDAY PRN (Reason: allergies) fluticasone propionate 50 mcg/actuation blister with device 1 inh inhalation BID clopidogrel 75 mg tablet 75 mg PO DAILY Qty: 90 1RF Did you review [place] [employer] for ALL controlled substances?: No Discussed opioids are addictive and Narcan is available by prescription or from pharmacy.: No Condition: Fair
[2025-10-22] MEDS: CEFPODOXIME PROXETIL PO SCH (09:56)
[2025-10-22 10:54] VITALS: BP 153/75; PULSE 54; TEMP 97.5
== END 2025-10-22 10:45 | disposition home or self-care (01) | DRG 190 ==
LOC: ED 15:26 → SCU 17:11
PROVIDERS: ADMIT Hospitalist; ATTEND Nurse Practitioner Family